=== PATIENT | female | born 1935 | race Caucasian/White ===

== ENCOUNTER 2020-06-01 08:42 | Outpatient (CLI) | payer MEDICARE, OTHER, SELFPAY ==
--- NOTE | ~2020-06-01 | MM_ITS ---
EXAMINATION: MM screening ezekiel BI w chao HISTORY: Screening TECHNIQUE: Craniocaudal and mediolateral oblique 3-D tomosynthesis images were obtained and synthetic 2-D images were generated. CAD analysis was submitted and interpreted. COMPARISON: Comparison to multiple prior studies sequentially, with oldest reviewed study dated 11/14. BREAST PARENCHYMAL COMPOSITION: There are scattered areas of fibroglandular density. FINDINGS: There is no evidence of suspicious mass, calcification, or architectural distortion to sugg est malignancy in either breast. There has been no suspicious interval change. IMPRESSION: 1. No mammographic evidence of malignancy. 2. Recommend routine screening mammography in one year. BI-RADS Category 1: Negative Reviewed, dictated and finalized at location A. H TESTER
== END 2020-06-01 08:43 | disposition home or self-care (01) ==
PROVIDERS: PCP Internal Medicine Infectious Disease; Visit Provider Student in an Organized Health Care Education/Training Program
DX: Z12.31 Encounter for screening mammogram for malignant neoplasm of breast (principal)
CPT/HCPCS: 77063; 77067

== ENCOUNTER 2020-06-12 10:35 | Outpatient (CLI) | payer MEDICARE, OTHER, SELFPAY ==
--- NOTE | ~2020-06-12 | CT_ITS ---
EXAMINATION: CT chest high resolution wo co DATE: 06/12/2020 10:58 INDICATION: abn PFT R94.2 Abnormal results of pulmonary function studies TECHNIQUE: Computed tomography (CT) of the chest was performed without intravenous contrast. Addition al 3D reconstructions utilizing coronal maximum intensity projection (MIP) were performed. Automated exposure control and iterative reconstruction technique were employed. The dose-length product was 16 7.36 mGy-cm. COMPARISON: None FINDINGS: Calcified nodule in the left lower lobe along with calcified left hilar lymph nodes and a calcified s plenic nodule, all consistent with old granulomatous disease. Mild pleural-parenchymal scarring/fibro sis along side several prominent endplate osteophytes at the right anterolateral margin of the mid to lower thoracic spine consistent with diffuse idiopathic skeletal hyperostosis (DISH). No evident int erstitial lung disease, suspicious pulmonary nodules, pneumonia, pulmonary edema or pleural effusion. Heart size is normal. Atherosclerotic coronary artery calcifications and aortic valve calcification. No pericardial effusion. Thoracic aorta is normal in caliber. No pathologically enlarged thoracic ly mphadenopathy. Moderate-sized sliding-type hiatal hernia. Multiple calcified gallstones within the ot herwise normal-appearing gallbladder. Thoracic kyphosis with chronic T7 compression fracture with 40% anterior and central vertebral body height loss. IMPRESSION: 1. No acute cardiopulmonary disease or chronic interstitial lung disease. 2. Moderate-sized sliding-type hiatal hernia. 3. Chronic T7 compression fracture. 4. Cholelithiasis. Reviewed, dictated and finalized at location . RVISOR MAIL CARRIERS
--- NOTE | 2020-06-12 10:56 | ECHO_ITS ---
Patient Info Name: Fadumo Rdz Age: 85 years : 1935 Gender: Female Ht: 65 in Wt: 150 lbs BSA: 1.78 m2 HR: 46 bpm BP: 158 / 75 mmHg Heart Rhythm: Sinus Rhythm Technical Quality: Good Exam Date: 06/12/2020 11:14 AM Exam Location: [facility] Patient Status: Outpatient Admit Date: 06/12/2020 Staff Ordering Physician: Cristiane Mireles MD Car Repairer Pull[place]: Amy Aquino RDCS Attending Provider: Cristiane Mireles MD Referring Physician: Aline DEWEY; Exam Type: CA echo doppler color flow Study Info Indications R06.00 - Dyspnea, unspecified Complete two-dimensional, color flow and Doppler transthoracic echocardiogram is performed. Summary 1. Complete two-dimensional, color flow and Doppler transthoracic echocardiogram is performed. 2. There is mild concentric increased left ventricular wall thickness. 3. Left ventricular systolic function is normal, estimated at 60-65%. 4. Left atrial chamber dimension is mildly enlarged. 5. Trivial aortic mitral and tricuspid valve regurgitation. Left Ventricle Left ventricular chamber dimension is normal. Left ventricular systolic function is normal, estimated at 60-65%. There is mild concentric increased left ventricular wall thickness. The left ventricular diastolic function is grade I diastolic dysfunction. Right Ventricle Right ventricular chamber dimension is normal. Left Atria Left atrial chamber dimension is mildly enlarged. Right Atria Right atrial chamber dimension is normal. Aortic Valve The aortic valve is trileaflet. There is mild aortic valve sclerosis. There is trace aortic valve regurgitation. Pulmonic Valve The pulmonic valve is not well visualized. Mitral Valve The mitral valve has normal leaflets. There is trace mitral valve regurgitation. The mitral valve annulus is mildly calcified. Tricuspid Valve The tricuspid valve leaflets are normal. There is trace tricuspid valve regurgitation. Pericardium/Pleural The pericardium appears normal. Aorta The aortic root size at the sinus of Valsalva is normal. Left Ventricular Outflow Tract Name Value Normal LVOT 2D LVOT Diameter 2.0 cm LVOT Doppler LVOT Peak Gradient 7 mmHg LVOT Mean Gradient 4 mmHg LVOT VTI 37 cm LVOT VTI/AV VTI Ratio 0.8 LVOT Stroke Volume 116 ml LVOT CO 4.3 l/min LVOT CI 2.4 l/min/m2 Pulmonic Valve Name Value Normal RVOT Doppler RVOT Peak Gradient 2 mmHg PV Doppler PV Peak Gradient 3 mmHg Mitral Valve
--- NOTE | 2020-06-18 16:04 | WPDSIXMINUTE ---
Six Minute Walk Six Minute Walk: DOS: 06/12/2020 REQUESTING: Dr Mireles REASON FOR TESTING: Dyspnea SIX MINUTE WALK This This test was conducted per ATS guidelines. The initial saturation was 95%. The pulse was 59. The patient walked for 6 minutes without desaturating. The pulse maximum was 75. During recovery the lowest saturation was 95%. Distance walked was 750 ft/228 meters. She did not stop to rest. She used a cane while walking. IMPRESSION: Normal walk study without desaturation. No supplemental O2 needed with exertion.
== END 2020-06-12 10:36 | disposition home or self-care (01) ==
LOC: ANHIMG 10:36
PROVIDERS: PCP Internal Medicine Infectious Disease; Visit Provider Internal Medicine Critical Care Medicine
DX: R94.2 Abnormal results of pulmonary function studies (principal); K80.20 Calculus of gallbladder without cholecystitis without obstruction; K44.9 Diaphragmatic hernia without obstruction or gangrene
CPT/HCPCS: 71250; 93306

== ENCOUNTER 2020-06-22 12:45 | Outpatient (CLI) | payer MEDICARE, OTHER, SELFPAY ==
--- NOTE | ~2020-06-22 | NM_ITS ---
EXAMINATION: NM pulmonary perfusion DATE: 06/22/2020 13:40 INDICATION: Shortness of breath. TECHNIQUE: 5.38 mCi Tc-99m MAA was administered intravenously for perfusion images. Scintigraphic im ages of the chest were obtained. COMPARISON: Chest 2 views 06/22/2020, chest CT 06/12/2020 FINDINGS: Perfusion images show small defects in left upper lobe and left lower lobe. ] IMPRESSION: 1. Pulmonary embolism absent (very low probability). Reviewed, dictated and finalized at location A. T ARMORED RECONNAISSANCE OFFICER
--- NOTE | ~2020-06-22 | XR_ITS ---
EXAMINATION: XR chest 2V EXAM DATE: 06/22/2020 13:06 INDICATION: R06.02 - Shortness of breath TECHNIQUE: Frontal and lateral projections of the chest obtained and reviewed. There is no prior alaina dy for comparison. Correlation was made with CT chest 06/12/2020. FINDINGS: There is moderate to large sliding gastroesophageal hiatal hernia. The lungs are clear. Th ere are no pleural effusions. The cardiomediastinal silhouette is within normal limits. There is no pneumothorax suspected. The bones and soft tissues are unremarkable. 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 IMPRESSION: No acute cardiopulmonary findings. Moderate to large sized hiatal hernia. Reviewed, dictated and finalized at location B. UREMENT SPECIALIST IMPRESSION: No acute cardiopulmonary findings. Moderate to large sized hiatal h ernia.
== END 2020-06-22 12:46 | disposition home or self-care (01) ==
PROVIDERS: PCP Internal Medicine Infectious Disease; Visit Provider Internal Medicine Critical Care Medicine
DX: R94.2 Abnormal results of pulmonary function studies (principal); R06.02 Shortness of breath; K44.9 Diaphragmatic hernia without obstruction or gangrene
CPT/HCPCS: 71046; 78580; A9540

== ENCOUNTER 2020-07-20 08:20 | Outpatient (CLI) | payer MEDICARE, OTHER, SELFPAY ==
[2020-07-22 08:14] LABS: ANA Cascade Screen Negative (Negative)
== END 2020-07-20 08:21 | disposition home or self-care (01) ==
PROVIDERS: PCP Internal Medicine Infectious Disease; Visit Provider Internal Medicine Critical Care Medicine
DX: R94.2 Abnormal results of pulmonary function studies (principal); R06.00 Dyspnea, unspecified
CPT/HCPCS: 36415; 86038

== ENCOUNTER 2021-08-02 09:41 | Outpatient (CLI) | payer MEDICARE, OTHER, SELFPAY ==
--- NOTE | ~2021-08-02 | MM_ITS ---
EXAMINATION: MM screening ezekiel BI w chao HISTORY: Screening mammogram, family history of breast cancer in her daughter and sister. TECHNIQUE: Craniocaudal and mediolateral oblique 3-D tomosynthesis images were obtained and synthetic 2-D images were generated. CAD analysis was submitted and interpreted. COMPARISON: 06/01/2020, 04/05/2019, 03/27/2019, 03/15/2018 BREAST PARENCHYMAL COMPOSITION: There are scattered areas of fibroglandular density. FINDINGS: There is no evidence of suspicious mass, calcification, or architectural distortion to sugg est malignancy in either breast. There has been no suspicious interval change. IMPRESSION: 1. No mammographic evidence of malignancy. 2. Recommend routine screening mammography in one year. BI-RADS Category 1: Negative Reviewed, dictated and finalized at location A. BIT CARPENTER
== END 2021-08-02 09:42 | disposition home or self-care (01) ==
LOC: ANHIMG 09:44
PROVIDERS: PCP Internal Medicine Infectious Disease; Visit Provider Student in an Organized Health Care Education/Training Program
DX: Z12.31 Encounter for screening mammogram for malignant neoplasm of breast (principal)
CPT/HCPCS: 77063; 77067

== ENCOUNTER 2023-04-04 08:15 | Outpatient (CLI) | payer MEDICARE, OTHER, SELFPAY ==
--- NOTE | ~2023-04-04 | MM_ITS ---
EXAMINATION: MM screening ezekiel BI w chao HISTORY: Screening mammogram TECHNIQUE: Craniocaudal and mediolateral oblique 3-D tomosynthesis images were obtained and synthetic 2-D images were generated. CAD analysis was submitted and interpreted. COMPARISON: 08/02/2021, 06/01/2020 bilateral screening mammogram examinations BREAST PARENCHYMAL COMPOSITION: There are scattered areas of fibroglandular density. FINDINGS: There is no evidence of suspicious mass, calcification, or architectural distortion to sugg est malignancy in either breast. There has been no suspicious interval change. IMPRESSION: 1. No mammographic evidence of malignancy. 2. Recommend routine screening mammography in one year. BI-RADS Category 1: Negative Reviewed, dictated and finalized at location A.
== END 2023-04-04 08:16 | disposition home or self-care (01) ==
PROVIDERS: PCP Internal Medicine Infectious Disease; Visit Provider Internal Medicine Infectious Disease
DX: Z12.31 Encounter for screening mammogram for malignant neoplasm of breast (principal)
CPT/HCPCS: 77063; 77067

== ENCOUNTER 2024-01-15 11:25 | Outpatient (CLI) | payer MEDICARE, OTHER, SELFPAY ==
[2024-01-15 12:32] LABS: Alanine Aminotransferase 12 U/L (6-35); Albumin Level 3.7 g/dL (3.5-5.1); Alkaline Phosphatase 125 U/L (38-126); Anion Gap 7 mmol/L (4-12); Aspartate Amino Transferase 22 U/L (14-36); Bilirubin,Total 0.4 mg/dL (0.2-1.3); Blood Urea Nitrogen 43 mg/dL (7-17); Carbon Dioxide 22 mmol/L (22-30); Chloride 111 mmol/L (98-107); Estimated Glomerular Filt Rate 42; Glucose 87 mg/dL (65-110); Magnesium 2.1 mg/dL (1.6-2.3); Phosphorus 3.2 mg/dL (2.5-4.5); Potassium 4.5 mmol/L (3.4-5.0); Sodium 140 mmol/L (137-145)
[2024-01-15 12:43] LABS: Parathyroid Intact 68.5 pg/mL (7.5-53.5)
[2024-01-17 02:29] LABS: Protein, Total 6.1 g/dL (6.1-8.1)
[2024-01-17 11:23] LABS: Ionized Calcium 5.5 mg/dL (4.7-5.5)
[2024-01-17 13:18] LABS: Creatinine, Random Urine 78 mg/dL (20-275); Total Protein/Creatinine Ratio 141 mg/g creat (24-184)
[2024-01-17 15:09] LABS: Albumin 3.6 g/dL (3.8-4.8); Alpha 1 Globulin 0.3 g/dL (0.2-0.3); Alpha 2 Globulin 0.8 g/dL (0.5-0.9); Beta 1 Globulin 0.4 g/dL (0.4-0.6); Gamma Globulin 0.8 g/dL (0.8-1.7)
[2024-01-19 15:33] LABS: Vitamin D 1,25 (OH)2 Total 25 pg/mL (18-72); Vitamin D2 1,25 (OH)2 <8 pg/mL; Vitamin D3 1,25 (OH)2 25 pg/mL
[2024-01-30 13:33] LABS: Parathyroid Hormone Related Pr 14 pg/mL (11-20)
== END 2024-01-15 11:26 | disposition home or self-care (01) ==
LOC: ANHLAB 11:34
PROVIDERS: Visit Provider Internal Medicine
DX: E83.52 Hypercalcemia (principal); R06.00 Dyspnea, unspecified; M81.0 Age-related osteoporosis without current pathological fracture
CPT/HCPCS: 36415; 80053; 82306; 82330; 82570; 82652; 83519; 83735; 83970; 84100; 84155; 84156; 84165; 84166; 84439; 84443

== ENCOUNTER 2024-01-18 12:06 | Outpatient (CLI) | payer MEDICARE, OTHER, SELFPAY ==
[2024-01-18 13:44] LABS: Creatinine Urine 59.8 mg/dL
[2024-01-18 14:14] LABS: Creatinine 24 Hour Urine 0.7 gm/24 (0.8-1.8); Total Volume 24 Hour Urine 1200 ml
== END 2024-01-18 12:07 | disposition home or self-care (01) ==
LOC: ANHLAB 12:11
PROVIDERS: Visit Provider Internal Medicine
DX: E21.3 Hyperparathyroidism, unspecified (principal); M81.0 Age-related osteoporosis without current pathological fracture
CPT/HCPCS: 81050; 82340; 82570

== ENCOUNTER 2024-02-23 12:25 | Outpatient (CLI) | payer MEDICARE, OTHER, SELFPAY ==
[2024-02-23 12:44] LABS: Basophils Absolute Auto 0.1 K/mm3 (0.0-0.1); Basophils Percent Auto 1.3 % (0.2-1.2); Eosinophils Absolute Auto 0.3 K/mm3 (0-0.3); Eosinophils Percent Auto 3.9 % (0-4.4); Hematocrit 37.5 % (37.0-47.0); Hemoglobin 11.6 g/dL (12.0-15.0); Immature Granulocyte Absolute 0.02 K/mm3 (0.00-0.031); Immature Granulocyte Percent A 0.3 % (0-0.5); Lymphocytes Absolute Auto 1.59 K/mm3 (0.9-3.2); Lymphocytes Percent Auto 23.2 % (18.3-44.2); Mean Corpuscular HGB Conc 30.9 g/dl (32-36); Mean Corpuscular Hemoglobin 29.2 pg (26-34); Mean Corpuscular Volume 94.5 fl (80-100); Mean Platelet Volume 9.9 fl (7.4-10.4); Monocytes Absolute Auto 0.6 K/mm3 (0.1-0.6); Monocytes Percent Auto 8.8 % (2.6-8.5); Neutrophils Absolute Auto 4.3 K/mm3 (1.3-6.7); Neutrophils Percent Auto 62.5 % (45.5-73.1); Platelet Count Result 213 k/mm3 (150-375); Red Blood Count 3.97 M/mm3 (4.2-5.4); Red Cell Distribution Width 13.8 % (11.5-14.5); White Blood Count 6.9 K/mm3 (4.5-10.0)
[2024-02-23 15:30] LABS: Iron 60 ug/dL (37-170)
[2024-02-23 15:37] LABS: Alanine Aminotransferase 15 U/L (6-35); Albumin Level 4.2 g/dL (3.5-5.1); Alkaline Phosphatase 86 U/L (38-126); Anion Gap 10 mmol/L (4-12); Aspartate Amino Transferase 23 U/L (14-36); Bilirubin,Total 0.5 mg/dL (0.2-1.3); Blood Urea Nitrogen 30 mg/dL (7-17); Carbon Dioxide 21 mmol/L (22-30); Chloride 108 mmol/L (98-107); Estimated Glomerular Filt Rate 52; Glucose 106 mg/dL (65-110); Potassium 4.7 mmol/L (3.4-5.0); Sodium 139 mmol/L (137-145)
[2024-02-23 15:42] LABS: Percent Iron Saturation 20 % (20-50)
[2024-02-23 15:47] LABS: Immunoglobulin A 150 mg/dL (70-400); Immunoglobulin G 995 mg/dL (700-1600); Immunoglobulin M 35 mg/dL (40-230)
[2024-02-23 16:45] LABS: Folic Acid 9.6 ng/mL (2.76->20)
[2024-02-26 11:28] LABS: Protein, Total 6.3 g/dL (6.1-8.1)
[2024-02-26 12:13] LABS: Lambda Light Chain 21.2 mg/L (5.7-26.3)
[2024-02-27 11:13] LABS: Albumin 3.8 g/dL (3.8-4.8); Alpha 1 Globulin 0.3 g/dL (0.2-0.3); Alpha 2 Globulin 0.8 g/dL (0.5-0.9); Beta 1 Globulin 0.4 g/dL (0.4-0.6); Gamma Globulin 0.9 g/dL (0.8-1.7)
== END 2024-02-23 12:26 | disposition home or self-care (01) ==
LOC: ANHLAB 12:28
PROVIDERS: Nurse Practitioner Family; Visit Provider Internal Medicine Hematology & Oncology
DX: D64.9 Anemia, unspecified (principal); D72.9 Disorder of white blood cells, unspecified
CPT/HCPCS: 36415; 80053; 82607; 82728; 82746; 82784; 83540; 83550; 83883; 84155; 84165; 85025

== ENCOUNTER 2024-03-04 09:28 | Outpatient (CLI) | payer MEDICARE, OTHER, SELFPAY ==
--- NOTE | ~2024-03-04 | NM_ITS ---
EXAMINATION: NM bone scan whole body DATE: 03/04/2024 14:46 INDICATION: Plasma cell disorder. TECHNIQUE: 22.3 mCi Tc-99m HDP was administered intravenously. Delayed whole-body scintigrams were o btained. 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 There is increased activity adjacent to the left k nee arthroplasty, which is nonspecific and may be normal. There is joint-centered increased activity in the shoulders, sternoclavicular joints, wrists, right knee, and feet, likely osteoarthritis. There is a right hip arthroplasty. There is focal increased activity in an anterior right rib, likely an a ge-indeterminate fracture. There is disc-centimeters increased activity in the spine, likely degenera tive disc disease. IMPRESSION: 1. No specific evidence of multiple myeloma. 2. Focal increased activity in an anterior right rib, likely an age-indeterminate fracture. Reviewed, dictated and finalized at location A. IMPRESSION: 1. No specific evidence of multiple myeloma. 2. Focal increased activity in an anterior right rib, likely an age-indetermina te fracture.
== END 2024-03-04 09:29 | disposition home or self-care (01) ==
LOC: ANHIMG 09:28
PROVIDERS: Visit Provider Nurse Practitioner Family
DX: D72.9 Disorder of white blood cells, unspecified (principal)
CPT/HCPCS: 78306; A9503

== ENCOUNTER 2024-11-26 09:32 | Outpatient (CLI) | payer MEDICARE, OTHER, SELFPAY ==
--- NOTE | ~2024-11-26 | US_ITS ---
EXAMINATION: US aorta DATE: 11/26/2024 11:08 CDT INDICATION: Aortic aneurysm. TECHNIQUE: Grayscale, color Doppler, and pulsed Doppler images of the aorta and common iliac arteries were obtained. COMPARISON: None. FINDINGS: The proximal aorta measures 3 cm greatest sagittal dimension. The mid aorta measures 3.3 cm greatest sagittal dimension. The distal aorta measures 2.2 cm greatest sagittal dimension. The right common in ternal iliac artery measures 1.5 cm. The left common iliac artery measures 1.5 cm. IMPRESSION: 1. Atherosclerosis with aneurysmal dilation of the abdominal aorta measuring up to 3.3 cm greatest sa gittal dimension. Consider correlation with CT angiography of the abdomen. Reviewed, dictated and finalized at location A. IMPRESSION: 1. Atherosclerosis with aneurysmal dilation of the abdominal aorta measuring up to 3.3 cm greatest sagittal dimension. Consider correlation with CT angiograph y of the abdomen.
--- OUTSIDE RECORDS SUMMARY | 2024-11-26 10:27 | XMS_ITS ---
Author Name Auto Generated, Auto Generated Organization [facility] ices Address [address] [place] [address] Phone [phone] Care Team Providers Care Oceanologist Name Role Phone Jairo Corona Unavailable Tian Villeda Unavailable [phone] Functional Status Mental Status Allergies and Intolerances Medications Problems Reason for Referral Past Medical History
--- OUTSIDE RECORDS SUMMARY | 2024-11-26 10:27 | XMS_ITS | Encounter Summary ---
Author Organization [facility] Address [address] [place] [address] Care Team Providers Care Arc Cutter Name Role Phone Denzel Beckford MD Unavailable [phone] Jorge A Colindres MD Primary Care Provider [phone] Encounter Details Date Type Department Care Team (Late st Contact Info) Description 12/26/2019 Lab Requisition [facility] [address] [place] [id number] [place] [address] [place] [address] Social History Tobacco Use Types Packs/Day Years Used Date Smoking Tobacco: Never Smokeless Tobacco: Never Alcohol Use Standard Drinks/Week Comments No 0 (1 standard drink = 0.6 oz pur e alcohol) Comments Unknown Sex and Gender Information Value Date Recorded Sex Assigned at Not on file 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 Gender Identity Not on file Sexual Orientation Not on file documented as of this encounter Plan of Treatment Not on file documented as of this encounter Procedures Procedure Name Priority Date/Time Associated Diagnosis Comments DERMATOPATHOLOGY Routine 12/25/2019 12:0 0 AM CDT documented in this encounter Results * DERMATOPATHOLOGY (12/25/2019 12:00 AM CDT) Case Report Dermatopathology Report Case: [id number] Authorizing Provider: Zora Da Silva MD Collected: 12/25/2019 12:00 AM Ordering Location: [facility] Received: 12/26/2019 09:41 AM Pathologist: Hortensia Delarosa MD Specimen: Skin, right distal lateral posterior upper arm 0 4:36 PM CDT DERMATOPATHOLOGY LABORATORY Final Diagnosis Specimen A. 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 . 0 4:36 PM CDT DERMATOPATHOLOGY LABORATORY Gross Description Specimen A: Received is one formalin filled container labeled with the patient's name and designated right distal lateral posterior upper arm. The specimen consists of a shave biopsy measuring [id number]. Jar 0+. 0 4:36 PM CDT DERMATOPATHOLOGY LABORATORY Microscopic Description Specimen A. SKIN, right distal lateral posterior upper arm: Sections show acanthosis, papillomatosis, hyperkeratosis, and squamous eddies. There is a lymphohistiocytic infiltrate within the papillary dermis. 0 4:36 PM CDT DERMATOPATHOLOGY LABORATORY Disclaimer An external and internal positive and negative controls are appropriate for the histochemical, immunohistochemical and immunofluorescence stain(s) in this case (if any), except where stated explicitly. The performance characteristics of the stain(s) cited in this report were developed and its performance characteristic determined by the Dermatopathology Laboratory at [facility], directed by Dr. Arturo Delarosa. These tests need not be, and therefore are not, approved by the [place] Food and Drug Administration. The tests are used for clinical purposes. Billing Codes Specimen Charges Stain Charges 18152 1 0 4:36 PM CDT DERMATOPATHOLOGY LABORATORY Embedded Images 0 4:36 PM CDT DERMATOPATHOLOGY LABORATORY Pathology/Cytolog y TISSUE SPECIMEN FROM SKIN / Unknown 12/25/2019 12/26/2019 9:41 AM CDT us Zora Da Silva MD LAB - PATHOLOGY/CYTOLOGY ORDERABLES Final Result DERMATOPATHOLOGY LABORATORY [facility] - Department of Dermatology Supervising Libr[facility]/[address] [phone] documented in this encounter Visit Diagnoses Not on filedocumented in this encounter Care Teams Arc Cutter Relationship Specialty Start Date End Date Jorge A Colindres MD [address] [place] [id number] PCP - General Internal Medicine 03/08/24 [place] [address] [address] Orthopedic Surgery 02/24/12 documented as of this encounter
--- OUTSIDE RECORDS SUMMARY | 2024-11-26 10:27 | XMS_ITS | Clinical Summary ---
Author Organization [facility] Virtual Care Address [address] [place] [id number] Phone Care Team Providers Care Racing Driver Name Role Phone Jorge A Colindres MD Primary Care Provider [phone] Bambi Santos MD Unavailable Walt Castellanos MD Unavailable [phone] Cristiane Mireles MD Unavailable [phone] Delilah Zavala MD Unavailable [phone] Dariela Edward DO Unavailable [phone] Allergies Active Allergy Reactions Criticality Noted Date Comments Codeine Unknown Erythromycin Rash Medium 06/21/2011 Propoxyphene Unknown Quinapril Unknown Sulfa (Sulfonamide Antibiotics) Rash Medium Medications aspirin 81 mg tabletIndication s:Myocardial Reinfarction Prevention Take 1 tablet (81 mg total) by mouth every morning Active cholecalciferol, vitamin D3, (VITAMIN D3 ORAL) Take 1,000 Int'l Units by mouth every morning Active cyanocobalamin (vitamin B-12) 1,000 mcg tabletIndication s:on Mon, Take 1 tablet (1,000 mcg total) by mouth 2 (two) times a week 04/17/20 025 Active Additional Information Patient not taking.Reported on 11/11/2024 acetaminophen (TYLENOL) 325 mg tabletIndication s:Pain Take 2 tablets (650 mg total) by mouth every 6 (six) hours as needed for pain Active amLODIPine (NORVASC) 5 mg tablet Take 1 tablet (5 mg total) by mouth daily 30 tablet 11 12/01/19 24 025 Active ALPRAZolam (XANAX) 0.25 mg tablet Take 1 tablet (0.25 mg total) by mouth nightly as needed for anxiety 30 tablet 04/04/20 24 Active ergocalciferol (VITAMIN D) 50,000 unit capsule Take 1 capsule (50,000 Units total) by mouth once a week 04/27/20 24 Active losartan (COZAAR) 100 mg tablet HALF PILL A DAY 04/26/20 24 Active hydrALAZINE (APRESOLINE) 25 mg tabletIndication s:Hypertension, essential Take 1 po bid 180 tablet 1 06/26/20 24 Active sertraline (ZOLOFT) 50 mg tablet TAKE 2 TABLETS(100 MG) BY MOUTH DAILY 180 tablet 1 07/26/20 24 Active mirtazapine (REMERON) 15 mg tabletIndication s:Other depression TAKE 1 TABLET(15 MG) BY MOUTH EVERY NIGHT 30 tablet 4 07/29/20 24 Active denosumab (PROLIA) 60 mg/mL syringeIndicatio ns:postmenopausa l osteoporosis and high fracture risk Inject 1 mL (60 mg total) under the skin once for 1 dose 1 mL 1 08/09/19 25 Active hydrALAZINE (APRESOLINE) 10 mg tabletIndication s:hypertension Take 1 tablet by mouth 3 (three) times a day patient taking 25mg 3x daily Discontin ued(Dose adjustmen t) Active Problems Problem Noted Date Diagnosed Date Nonrheumatic aortic valve stenosis 11/11/2024 Cellulitis 05/08/2024 Assessment & Plan (05/08/2024 9:05 AM CDT): Doubt dvt Cellultis is suspected with thromobphlebitis Keflex 500 mg po tid for five days Arm elevated Moist warm compresses 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 Assessment & Plan (04/29/2024 6:00 PM CDT): 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 S/p para thyroidectomy with caclium supplemenation resulting in hypercaclemia supplements stopped rpt calcium today is 10.4 Cellulitis 04/29/2024 Assessment & Plan (04/29/2024 6:01 PM CDT): Probably with a combination of thrombophlebitis however she does not remember getting an IV in meanwhile keflex 500 mg po tid for five days Swelling of upper arm 04/29/2024 Assessment & Plan (04/29/2024 6:02 PM CDT): Ddx include cellultis/ dvt/ thrombophlebitis Keflex 500 mg p otid for five days Asrrange a rue venous doppler JONNA (generalized anxiety disorder) 04/12/2024 Assessment & Plan (08/07/2024 12:56 PM DIRECTOR OF SCIENCE): CHRONIC AND STABLE REMERON HS FOR APPETITE XANAX PRN ZOLOFT 50 MG TWO PILLS A DAY Assessment & Plan (04/12/2024 4:50 PM CDT): CHRONIC AND STAB LE ON ZOLOFT Primary hyperparathyroidism 04/12/2024 Assessment & Plan (04/26/2024 12:18 PM CDT): S/P PARATHYORIDECTOMY WITH 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 DUE FOR PARATTHYRODIECTOMY Encounter for Medicare annual wellness exam 10/2023 Assessment & Plan (12/02/2023 4:43 PM CDT): IMMUNIZATIONS WERE REVIEWED DISCUSSED SHINGRIX VACCINE ELEVATED BP GOAL IS UNDER 130/80 OR LESS WITH A H/O AAA ( 3.5 CM ) AND MILD AORTIC STENOSIS F/U DR [facility] HYPERCALCEMIA WITH AN ELEVATED INTACT PTH, NL CREATININE POSITIVE OSTEOPOROSIS NOT ON PROLIA AT THIS TIME, LAST CREATININE IS AROUND 11 , MAKE F/U ENDOCRINOLOGY APPT COMING UP PT IS ASYMPTOMATIC DEPRESSION WITH WEIGHT LOSS CONTROLLED ON ZOLOFT 100 ( 50 MG TWO PILLS A DAY ) RESTART REMERON 15 MG PO QHS AND PRN XANAX DAVID USED VERY SPARINGLY CHRONIC PAIN MULTIPLE JOINTS OK TO DO TRAMADOL 50 MG PO TID WITH TYLNOL FOR ADDED BENEFIT A PRESCRIPTION TO THE PHARMACY WAS SENT TODAY AAA 3.5 CM STABLE DOING OK Abdominal aortic aneurysm (A AA) 3.0 cm to 5.0 cm in diameter in female 06/17/2023 Hyponatremia 06/16/2023 Unintentional weight loss 06/16/2023 Moderate protein-calorie malnutrition 06/16/2023 Hypercalcemia 06/15/2023 Multiple closed fractures of pelvis without disruption of pelvic ring, initial encounter 04/14/2023 Closed nondisplaced fracture of pelvis 3 Impaired mobility and endurance 06/15/2022 Assessment & Plan (06/15/2022 9:44 AM DIRECTOR OF SCIENCE): Chronic problem Please refer to note for pertinent HPI, ROS and PE findings Patient requesting a scooter (preferrable with 4-wheels) to help with mobility, especially when having to travel long distances Will have staff attempt to order scooter for patient Orders for AMS STAFF to arrange Referral to home health social work - referral for help in home with Referral to PT - evaluation of needs for scooter, balance and strengthening exercises for endurance - patient prefers PT services downstairs Try ordering motorized scooter - impaired mobility and endurance, patient prefers 4-wheel scooter Orders for Fadumo Hammond to arrange FOR SCOOTER: Follow up with PT as recommended Office staff to coordinate ordering motorized scooter - office will keep you updated, call if have any questions Follow up with cardiology as recommended Follow up with PT as recommended and able Follow up with Dr. Colindres as scheduled or sooner if necessary COVID-19 03/22/2022 Assessment & Plan (03/22/2022 3:01 PM CDT): Patient presents with fever, fatigue, chills and cough that started over the weekend. She took some tylenol which helped with symptoms. She was tested for flu and covid today and covid testing was positive. Encouraged rest, fluids, tylenol for pain or fever and mucinex for congestion. She was encouraged to use albuterol inhaler for cough or shortness of breath. She will be sent tessalon perles for cough. We also sent paxlovid and facts sheet provided. Encouraged her to call or return should symptoms worsen or persist. Discussed quarantine guidelines and understanding verbalized. Age-related osteoporosis wit hout current pathological fracture 05/26/2021 Assessment & Plan (04/26/2024 12:18 PM CDT): CONTINUE VIT SUPPLEMETNATION AND SIX MONTHLY PROLIA Closed fracture of greater t rochanter of femur with routine healing, right 04/27/2021 Stage 3a chronic kidney disease 02/14/2021 Ptosis of eyelid, right 08/09/2019 Overview (08/09/2019): Added automatically from request for surgery [id number] Peripheral visual field defect of right eye 07/31 Overview (08/09/2019): Added automatically from request for surgery [id number] MARIA (dyspnea on exertion) 05/08/2019 Assessment & Plan (05/26/2023 4:25 PM CDT): Worse in the last 1-2 weeks, no acute cardiac symptoms or findings on exam.- vitals stable. Lungs clear. Labs from last month and ECHO from 03/2022 were unremarkable, Community Education Coordinator at baseline. Advised this is likely from anxiety and poor appetite. See plan for anxiety/depression above. Non-rheumatic mitral regurgitation 05/08/2019 Caregiver role strain 02/12/2019 Assessment & Plan (06/15/2022 9:57 AM DIRECTOR OF SCIENCE): Chronic problem Patient's has dementia - patient is primary caregiver and is requesting help in the home with performing ADLs for due to patient's impaired mobility, poor endurance/strength, and baseline arthritis and subsequent pain See note for pertinent HPI, ROS and PE findings Recommended referral to home health social work to bring in services into the home - patient agreeable to this Orders for AMS STAFF to arrange Referral to home health social work - referral for help in home with Referral to PT - evaluation of needs for scooter, balance and strengthening exercises for endurance - patient prefers PT services downstairs Try ordering motorized scooter - impaired mobility and endurance, patient prefers 4-wheel scooter Orders for Fadumo Hammond to arrange FOR HELP IN HOME: Call office at the end of the week or the beginning of next week if haven't heard from home health director of social services - will have office staff reach out again Follow up with cardiology as recommended Follow up with PT as recommended and able Follow up with Dr. Colindres as scheduled or sooner if necessary Depression 09/25/2018 Assessment & Plan (05/26/2023 4:19 PM CDT): Worse in the last several weeks. See HPI for details. Taking sertraline daily and xanax PRN. No acute findings on exam. Will Rx Mirtazipine 7.5mg nightly. Relaxation techniques encouraged. Advised patient it is OK to ask for help when needed, she should not feel guilt about needing help. Follow in 3 weeks as scheduled. Bilateral low back pain without sciatica 017 Mixed hyperlipidemia 11/17/2016 Overview (12/23/2016): Hypercholesterolemia Assessment & Plan (08/07/2024 12:55 PM DIRECTOR OF SCIENCE): FLP AND LDL WERE REVIEWED GOAL LDL IS UNDER 100 Assessment & Plan (04/12/2024 4:50 PM CDT): FLP AND LDL WERE REVIEWED GOAL LDL IS UNDER 100 Aortic valve insufficiency 05/04/2015 Overview (11/03/2016): Aortic valve insufficiency, etiology of cardiac valve disease unspecified Assessment & Plan (04/12/2024 4:51 PM CDT): CHRONIC AND STABLE LAST ECHO IN 2021 PT IS ASYMTPOMATIC RPT ECHO SOMETIEMS THIS YEAR Primary osteoarthritis involving multiple joints 12/14/2013 Overview (11/05/2016): DJD (degenerative joint disease) 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 No acute findings on exam. Continue current regimen and low salt diet. Diverticulosis Blood loss anemia Resolved Problems Problem Noted Date Diagnosed Date Resolved Date Bradycardia 06/15/2022 05/26/2023 Assessment & Plan (06/15/2022 9:49 AM DIRECTOR OF SCIENCE): Acute problem, patient reports only one occurrence 2 days ago of heart rate in the 40s Physical examination as documented Patient recently seen by cardiology in 04/2022 and cleared from cardiac standpoint - see chart for echo, EKG results (unremarkable) Discussed potential further cardiac workup - patient declines at this time, stating that she would rather monitor heart rate and symptoms and report any abnormalities to the office if another incident occurs Orders for AMS STAFF to arrange Referral to home health social work - referral for help in home with Referral to PT - evaluation of needs for scooter, balance and strengthening exercises for endurance - patient prefers PT services downstairs Try ordering motorized scooter - impaired mobility and endurance, patient prefers 4-wheel scooter Orders for Fadumo Hammond to arrange FOR HEART RATE: Continue monitoring heart rate - report readings <50 or >100 Continue monitoring blood pressure - report readings <90/60 or >140/90 Continue monitoring symptoms - report symptoms of chest pain, shortness of breath, dizziness, weakness/fatigue to the office or screen making supervisor Follow up with cardiology as recommended Follow up with PT as recommended and able Follow up with Dr. Colindres as scheduled or sooner if necessary Rectal bleeding 02/14/2021 05/26/2023 Encounters Date Type Department Care Team Description 11/11/2024 11:00 AM CDT Office Visit [facility] Card[facility] [address] [place] [address] Bisi Douglass MD Abdominal aortic aneurysm (AAA) 3.0 cm to 5.0 cm in diameter in female (Primary Dx); Hypertension, essential; Mixed hyperlipidemia; Nonrheumatic aortic valve stenosis from Last 3 Months Immunizations Immunization Administration Dates Next Due Influenza, Quad, Adjuvantate d, Intramuscular 05/18/2022 Influenza, Quadrivalent, Hig h Dose, Preservative Free, Intrr 05/11/2023,05/18/2021,05/25/2020,05/29 Influenza, Trivalent, Adjuva nted, Intramuscular 05/10/2019 Influenza, Trivalent, High D ose, Split, Preservative Free, Intramuscular 04/12/2024,05/17/2018,05/29/2017 Influenza, Trivalent, IM (MDV) 05/28/2015 Influenza, Unspecified 04/12/2024,05/25/2020, Pneumococcal Conjugate PCV 13 01/15/2016 Pneumococcal Polysaccharide PPV23 04/21/2004 Td, adsorbed 05/19/2008 Surgical History Surgery Date Site/Laterality Comments HIP ARTHROPLASTY 07/31/2013 - 07/30/2014 Right Hip arthroplasty CATARACT EXTRACTION 07/31/2007 - 07/30/2008 Bilateral TOTAL ABDOMINAL HYSTERECTOMY 07/31/1991 - 07/30/1992 PAPILLARY MESOTHELIOMA: Hysterectomy, total abdominal, BSO LAMINECTOMY 07/31/2010 - 07/30/2011 SPINAL STENOSIS: L4-5 LAMINECTOMY KNEE ARTHROSCOPY Right SHOULDER SURGERY Left r/t fracture TOE SURGERY 07/31/2007 - 07/30/2008 Left KNEE SURGERY JOINT REPLACEMENT Medical History Medical History Date Comments Osteoarthritis Osteoarthritis Hypertension Hypertension Depression Depression Spinal stenosis SPINAL STENOSIS Hx Other Medical PAPILLARY MESOT HELIOMA Hx Other Medical Bilateral Catar acts Hx Other Medical Right THR Sleep apnea Delayed emergence from general anesthesia Hyperlipidemia Stage 3a chronic kidney disease (HCC) 02/14/2021 Hiatal hernia Osteoporosis Bleeding disorder Family History Medical History Relation Name Comments Coronary artery disease Brother 3 Martina nary artery disease, premature; Cause of : Coronary artery disease, premature Heart attack Brother 4 Myocardial Infa rction; Cause of : Myocardial Infarction Coronary artery disease Father Martina nary artery disease; Cause of : Coronary artery disease Coronary artery disease Mother Martina klein artery disease, premature; Cause of : Coronary artery disease, premature Heart attack Mother Myocardial Infa rction; Cause of : Myocardial Infarction Bleeding Disorder Other 1 Cancer Other 1 Family history of Cancer; Heart disease Other 1 Hypertension Other 1 Coronary artery disease Other 2 Fami ly history of Coronary artery disease; Diabetes Other 3 Family history of Diabetes mellitus; Hyperlipidemia Other 4 Family histor y of Hyperlipidemia; Breast cancer Sister 1 Cancer -breast ; Diabetes type II Sister 2 Diabetes -T ype 2; Kidney disease Sister 3 Renal disease ; Relation Name Status Comments Brother 1 (Age 52) Brother 2 (Age 52) Brother 3 Brother 4 Father (Age 82) Mother (Age 59) Other 1 Other 2 Other 3 Other 4 Sister 1 Sister 2 Sister 3 Social History Tobacco Use Types Packs/Day Years Used Date Smoking Tobacco: Never Smokeless Tobacco: Never Tobacco Cessation:Counseling Given: Not Answered Alcohol Use Standard Drinks/Week Comments No 0 (1 standard drink = 0.6 oz pur e alcohol) OASIS D0700: Social Isolation Answer Da te Recorded Frequency of experiencing loneliness or isolatio n Never 07/10/2023 OASIS A1250: Transportation Answer Date Recorded Lack of Transportation (Medical) No 07/10/2023 Lack of Transportation (Non-Medical) No 07/10/2023 Patient Unable or Declines to Respond No 07/10/2023 OASIS B1300: Health Literacy Answer Stu e Recorded Frequency of needing help to read materials from doctor or pharmacy Never 07/10/2023 [facility] Utilities Answer Date Recorded In the past 12 months has [employer], [employer], or water [employer] threatened to shut off services in your home? No 06/16/2023 Social Connection and Isolat ion Panel [NHANES] Answer Date Recorded In a typical week, how many times do you talk on the phone with family, friends, or neighbors? More than three times a week 06/16/2023 How often do you get togethe r with friends or relatives? Once a week 06/16/2023 How often do you attend chur or mormonism services? Never 06/16/2023 Do you belong to any clubs o r organizations such as holiness groups, unions, fraternal or athletic groups, or school groups? Yes 06/16/2023 How often do you attend meet ings of the clubs or organizations you belong to? More than 4 times per year 06/16/2023 Are you , , di vorced, , never , or living with a partner? 06/16/2023 Overall Financial Resource Strain (CARDIA) Answe r Date Recorded How hard is it for you to pa y for the very basics like food, housing, medical care, and heating? Not very hard 06/16/2023 PHQ-2 Answer Date Recorded PHQ-2 Total Score (If total score is 3 or more points, staff should administer the PHQ-9) 0 12/01/2023 Hunger Vital Sign Answer Date Recorded Within the past 12 months, y ou worried that your food would run out before you got the money to buy more. Never true 06/16/20 23 Within the past 12 months, t he food you bought just didn't last and you didn't have money to get more. Never true 06/16/2023 PRAPARE - Transportation Answer Date Re corded In the past 12 months, has l ack of transportation kept you from medical appointments or from getting medications? Yes 05/31 In the past 12 months, has l ack of transportation kept you from meetings, work, or from getting things needed for daily living? Yes 06/16/2023 Housing Stability Vital Sign Answer Stu e Recorded In the last 12 months, was t here a time when you were not able to pay the mortgage or rent on time? No 06/16/2023 In the last 12 months, how many places have you lived? 1 06/16/2023 In the last 12 months, was t here a time when you did not have a steady place to sleep or slept in a long term (including now)? No 06/16/2023 Personal Safety Answer Date Recorded Have you ever been in or are you currently in a harmful physical or emotional relationship or is someone making you feel afraid or unsafe? Denies 06/15/2023 Education Answer Date Recorded What is the highest level of school you have completed or the highest degree you have received? Some college, no degree 06/16/2023 Comments No Sex and Gender Information Value Date Recorded Sex Assigned at Not on file Legal Sex Female 6:07 PM DIRECTOR OF SCIENCE Gender Identity Not on file Sexual Orientation Not on file Obstetrics History Last Filed Vital Signs Vital Sign Reading Time Taken Comments Blood Pressure 120/58 11/11/2024 11:01 AM CDT Pulse 64 11/11/2024 11:01 AM CDT Temperature 36.4 C (97.5 F) 08/21/2024 12:04 PM DIRECTOR OF SCIENCE Respiratory Rate 18 08/21/2024 12:04 PM DIRECTOR OF SCIENCE Oxygen Saturation 97% 11/11/2024 11:01 AM CDT Inhaled Oxygen Concentration - - Weight 62.8 kg (138 lb 6.4 oz) 11/11/2024 11:01 AM CDT Height 172.7 cm (5' 8 ) 11/11/2024 11:01 AM CDT Body Mass Index 21.04 11/11/2024 11:01 AM CDT Plan of Treatment Health Maintenance Due Date Last Done Comments Hepatitis B Screening 1953 Zoster Vaccine (1 of 2) 1987 DTaP/Tdap/Td Vaccine (1 - Tdap) 05/20/2008 8 Covid-19 Vaccine (4 - 2023-2 5 season) 2024 06/27/2021, 10/07/2020, 09/09/2020 Depression Screening 11/30/2024 12/01/2023, 04/14/2023, 09/06/2022, Additional history exists Fall Risk Assessment 11/30/2024 12/01/2023, 06/20/2023, 09/06/2022, Additional history exists Well Visit 65+ 11/30/2024 12/01/2023, 01/2023, 01/04/2022, Additional history exists Pneumococcal vaccine 65+ Completed 01/15/2016, 04/01 Influenza Vaccine Completed 04/12/2024, , 05/11/2023, Additional history exists Insurance MEDICARE [facility]RO[facility] CHOICE PLUS MEDICARE [facility]RO[facility] INDEMNITY [place] MEDICARE RAILROAD [facility] Address: [facility] [address] [place] [address] [facility] INDEMORY [facility] MEDICARE [facility] Advance Directives For more information, please contact: [phone] * Full Code (Latest Code Status on File) Date Activated Date Inactivated Comments 06/15/2023 9:39 PM 06/20/2023 10:44 PM * Full Code Date Activated Date Inactivated Comments 04/14/2023 4:16 PM 04/17/2023 8:39 PM * Full Code Date Activated Date Inactivated Comments 02/16/2021 10:47 AM 02/20/2021 7:21 PM * Full Code Date Activated Date Inactivated Comments 02/14/2021 6:30 AM 02/16/2021 10:47 AM Care Teams Racing Driver Relationship Specialty Start Date End Date Jorge A Colindres MD [address] [place] [id number] PCP - General 10/28/16 Bambi Santos MD [address] [place] [address] Consulting Physician Cardiology 03/23/18 Walt Castellanos MD [address] [place] [address] Surgeon Ophthalmology 08/21/19 Cristiane Mireles MD [address] [facility] [address] [place] [address] Consulting Physician Critical Care Med 06/18/20 [place] [id number] [address] Consulting Physician Gastroenterology 02/19/21 Dariela Edward DO [address] [facility] [address] LJ Gupta [facility] [address] [place] [address] Consulting Physician Otolaryngology 06/20/23
--- OUTSIDE RECORDS SUMMARY | 2024-11-26 10:27 | XMS_ITS | Continuity of Care Document ---
Author Organization [facility] Address [address] [place] [address] Phone Care Team Providers Care Digital Sales Planner Name Role Phone Sam BRYANT, Leisa Unavailable Unavailable Allergies, Adverse Reactions, Alerts Substance Reaction Status Criticality erythromycin base Active No Informa tion QUINAPRIL HCL Active No Information PROPOXYPHENE NAPSYLATE Active No In formation acetaminophen Active No Information codeine Active No Information Sulfa (Sulfonamide Antibiotics) Active No Information Medications Medication Instructions Dosage Effective Dates (start - stop) Status Comments Vevye 0.1 % eye drops instill 1 drop by ophthalmic route every 12 hours 1 drop - Active Xiidra 5 % eye drops in a dropperette instill 1 drop by ophthalmic route 2 times every day into both eyes approximately 12 hours apart 1.00 drop - Active loteprednol etabonate 0.5 % eye drops,suspension instill 1 drop by ophthalmic route 2 times every day into affected eye(s) 1 drop - Active Artificial Tears (carboxymethylcellulose) 1 % eye drops take one tablet daily - Active diltiazem ER 240 mg capsule,24 hr,extended release take 1 capsule by oral route every day 240 MG - Active hydrochlorothiazide 12.5 mg capsule take 1 capsule by oral route every day 12.5 MG - Active gemfibrozil 600 mg tablet take 1 tablet by oral route 2 times every day 30 minutes before morning and evening meal 600 MG - Active losartan 100 mg tablet take 1 tablet by oral route every day 100 MG - Active sertraline 50 mg tablet take 1 tablet by oral route every day 50 MG - Active aspirin 81 mg tablet,delayed release take 1 tablet by oral route every day 81 MG - Active Vitamin D3 1,000 unit capsule take 1 by oral route every day 1 - Active B-12 Plus 5,000 mcg-100 mcg sublingual tablet take 1 by oral route every day 1 - Active Procedures Procedure Date No Charge Optomap Fundus Photos 024 No Charge GDX Retina Office/outpatient Visit, Est Office/outpatient Visit, Est Office/outpatient Visit, Est SCODI, Retina No Charge Optomap Fundus Photos 023 Refraction Eye Exam & Treatment SCODI, Retina No Charge Optomap Fundus Photos 022 Eye Exam & Treatment Fundus Photography W/ Report Eye Exam & Treatment SCODI, Retina Office/outpatient Visit, Est No Charge Optomap Fundus Photos 020 SCODI, Retina Visual Field Examination(s) No Charge Refraction Eye Exam & Treatment Office/outpatient Visit, Est Eye Exam & Treatment Refraction Eye Exam & Treatment Eye Exam & Treatment Eye Exam & Treatment No Charge Refraction Eye Exam & Treatment No Charge Optomap Fundus Photos 013 Office/outpatient Visit, New Eye Photography Eye Exam & Treatment Office/outpatient Visit, Est Post-op Follow-up Visit Post-op Follow-up Visit Post-op Follow-up Visit Post-op Follow-up Visit Post-op Follow-up Visit Post-op Follow-up Visit Post-op Follow-up Visit Post-op Follow-up Visit Repair/graft Eye Lesion Office/outpatient Visit, Est Office/outpatient Visit, Est Office/outpatient Visit, Est Eye Exam & Treatment Post-op Follow-up Visit Post-op Follow-up Visit Post-op Follow-up Visit Post-op Follow-up Visit Remove Cataract, Insert Lens No Charge Cataract Check Office/outpatient Visit, Est IOLMaster Office/outpatient Visit, Est Eye Exam & Treatment Refraction Advance Directives Directive Yes / No Effective Date File Name Other Directive No N/A N/A WARNING:The information contained in this section is historical and is provided for information only and does not constitute a legal document or any assurance that the information is still accurate. Please verify the information with the steiner of the legal document before using it for clinical purposes. Encounters Encounter Description Practice Location Reason(s) For Visit Diagnoses Date Provider Providers Copied on Encounter Office/outpa tient Visit, Est [facility], [address], [place], [place], [address], [place] tel:[phone] SEC [place] Professional Complete Exam (chief complaint) Dry eye syndrome of bilateral lacrimal glandsIschem ic optic neuropathy of right eyePseudopha zoila of both eyes 4 Sma OD Leisa. [address], [place], [place], [address], [place]. tel:[phone] Tyler Mccormack MD.Referring Provider: Champ Bazan, [address] [facility] [address], [place], [address]. tel:[phone] [facility], [address], [place], [place], [address], [place] tel:[phone] SEC [place] No Information -202 4 Ivan Sutton. [address], [address], [place], [place], [address], [place]. tel:[phone] Office/outpa tient Visit, [facility], [address] [place], [place] [address], [place], [place], [address], [place] tel:[phone] SEC Angela COTTRELL Professional Stye FU (chief complaint) Dry eye syndrome of bilateral lacrimal glands Oct- 4 Sam OD Leisa. [address] [place], [place] [address], [address], [place], [place], [address], [place]. tel:[phone] Tyler Mccormack MD.Referring Provider: Champ Bazan, [address] [facility] [address], [place], [address]. tel:[phone] Office/outpa tient Visit, [facility], [address], [place], [place], [address], [place] tel:[phone] SEC Angela COTTRELL Professional Red/painfu l (chief complaint) Hordeolum internum of right lower eyelid 4 Duong OD Jaqui. [address], [address], [place], [place], [address], [place]. tel:[phone] Tyler Mccormack MD.Referring Provider: Champ Bazan, [address] [facility] [address], [place], [address]. tel:[phone] [facility], [address] [facility] [address], [place], [place], [address], [place] tel:[phone] SEC Angela COTTRELL Professional Complete Exam (chief complaint) Drusen (degenerativ e) of macula, right eyeIschemic optic neuropathy of right eyeDry eye syndrome of bilateral lacrimal glands Sep- 3 Sam OD Leisa. [address], [place], [place], [address], [place]. tel:[phone] Tyler Mccormack MD.Referring Provider: Leisa Vargas OD K, [address], [place], [address]. tel:[phone] [facility], [address], [place], [place], [address], [place] tel:[phone] SEC Angela [place] Professional Complete Exam (chief complaint) Drusen (degenerativ e) of macula, right eyeIschemic optic neuropathy of right eyePresence of intraocular lens 2 Emile Oakes. [address] [facility], [address], [place], [place], [address], [place]. tel:[phone] Specialist: Tyler Mccormack MD, [address] [place] [address], [address]. tel:[phone] ng Provider: Champ Bazan, [address] [facility] [address], [place], [address]. tel:[phone] [facility], [address], [place], [place], [address], [place] tel:[phone] SEC Angela [place] Professional Complete Exam (chief complaint) Cystoid macular edema of right eyePseudopha zoila of both eyesDrusen (degenerativ e) of macula, right eyeIschemic optic neuropathy of right eye 1 Emile Oakes. [address] [facility], [address], [place], [place], [address], [place]. tel:[phone] Specialist: Tyler Mccormack MD, [address] [place] [address], [address]. tel:[phone] ng Provider: Vinita White MD L, [address] Professional [facility], [place], [address]. tel:[phone] [facility], [address], [place], [place], [address], [place] tel:[phone] SEC Ipava N Lisa No Information 1 Warrenbillie Hoskins. [address] [place], [address], [place]. [phone] Specialist: Tyler Mccormack MD, [address] [place], [address]. [phone] Office/outpa tient Visit, [facility], [address], [place], [place], [address], [place] tel:[phone] SEC Angela COTTRELL Professional CME f/u (chief complaint) Cystoid macular edema of right eyePresence of intraocular lens 0 Emile Oakes. [address], [address], [place], [place], [address], [place]. tel:[phone] Referring Provider: Vinita White MD L, [address] Junaid Professional [facility] [place], [address]. tel:[phone] [facility], [address], [place], [place], [address], [place] tel:[phone] SEC Angela COTTRELL Professional Complete Exam (chief complaint) Pseudophakia of both eyesGliosis of optic nerve of right eyePunctate keratitis, bilateralEpi retinal membrane (ERM) of right eyeCystoid macular edema of right eyeVisual field loss 0 Emile Oakes. [address], [address], [place], [place], [address], [place]. [phone] Referring Provider: Vinita White MD L, [address] DBharati Professional [facility] ists, [place], [address]. tel:[phone] Office/outpa tient Visit, [facility], [address], [place], [place], [address], [place] tel:[phone] SEC Angela COTTRELL Professional Bubble (chief complaint) Conjunctival cysts, right eye Sep-1 9 Ivan Sutton. [address] [place] [address] Drive, [address], [place], [place], [address], [place]. tel:[phone] Referring Provider: Vinita Willis, [address]una[address] Professional [place], [address]. tel:[phone] [place] [address] Eye [facility] Hospital[facility], [address] [place] [address] [address], [place], [place], [address], tel:[phone] SEC Angela COTTRELL Professional Complete Exam (chief complaint) Pseudophakia of both eyesGliosis of optic nerve of right eyeVitreous degeneration , right eyeLesion of right eyelidPtosis of both eyelids Jul- 9 Emile Oakes. [address] [facility] [place], [address], [place]. tel:[phone] Referring Provider: Vinita Willis, [address] [facility] is, [place], [address]. tel:[phone] [place], [place] [address]Scroll.in [facility], [address] [place] [address] [address], [place], [place], [address], [place] tel:[phone] SEC Angela COTTRELL Professional No Information 9 Emile Oakes. [address] [facility], [address], [place], [place], [address], [place]. tel:[phone] [facility] Eye [facility] HospitalScroll[facility], [address], [place], [place], [address], [place] tel:[phone] SEC Angela COTTRELL Professional Complete Exam (chief complaint) No Information 8 7 Erica Ramon. [address] [place], [address], [place]. tel:[phone] Referring Provider: Vinita Willis, [address] [place], [address]. tel:[phone] [place] [address] Eye [facility], [address], [place], [place], [address], [place] tel:[phone] SEC Angela COTTRELL Professional complete eye exam (chief complaint) No Information 6 Sveta Todd. [address] [facility], [address], [place], [place], [address], [place]. tel:[phone] Referring Provider: Vinita Willis, [address] Professional [employer] [place], [address]. tel:[phone] [place] [address], [address], [place], [place], [address], [place] tel:[phone] SEC Angela COTTRELL Professional Blurry vision (chief complaint) No Information Fabián Hoyt. [address] [facility], [address], [place], [address], [place]. tel:[phone] Referring Provider: Vinita Willis, [address] DBharati Professional [facility] is, [place], [address]. tel:[phone] [place] [address], [address], [place], [place], [address], [place] tel:[phone] SEC Angela COTTRELL Professional No Information 3 Ivan Sutton. [address] [facility] [facility] [address], [address], [place], [place], [address], [place]. tel:[phone] Referring Provider: Vinita Willis, [address] Professional [place], [address]. tel:[phone] Office/outpa tient Visit, [facility], [address], [place], [place], [address], [place] tel:[phone] SEC Ipava N Lisa No Information 3 Ap Sen. [address] [facility], [facility] [place], [address], [place]. tel:[phone] Referring Provider: Vinita Willis, [address] Professional [place], [address]. tel:[phone] [address] [place] [address] Eye [facility], [address], [place], [place], [address], [place] tel:[phone] SEC Angela COTTRELL Professional No Information 2 Sveta Todd. [address] [facility], [facility] [place], [address], [place]. [phone] Referring Provider: Vinita Willis, [address] Professional [place], [address]. tel:[phone] Office/outpa tient Visit, Est [facility], [address], [place], [place], [address], [place] tel:[phone] SEC Angela COTTRELL Professional No Information 0 1 Sveta Todd. [address] [facility], [facility] [place], [address], [place]. [phone] Referring Provider: Vinita Willis, [address] Professional [place], [address]. tel:[phone] [place] [address], [address], [place], [place], [address], [place] tel:[phone] SEC Angela COTTRELL Professional No Information 1 Wankum Perez. [address] [facility]rew[facility], [facility] [place], [address], [place]. tel:[phone] Referring Provider: Vinita Willis, [address] DBharati Professional [place], [address]. tel:[phone] [place], [place] [address] Eye [facility] HospitalScroll.in [facility], [address], [place], [place], [address], [place] tel:[phone] SEC Angela Root No Information 1 Butler Herman. [address], [address], [place], [place], [address], [place]. tel:[phone] Referring Provider: Vinita Willis, [address] DBharati Professional [employer] [place], [address]. tel:[phone] [place] [address] Eye [facility], [address], [place], [place], [address], [place] tel:[phone] SEC Ipava Ana Lindberg No Information 1 Ivan Herman. [address], [address], [place], [place], [address], [place]. [phone] Referring Provider: Vinita Willis, [address] DBharati Professional [employer] [place], [address]. tel:[phone] [place] [address] Eye [facility], [address], [place], [place], [address], [place] tel:[phone] SEC Jovan Ana Lindberg No Information 1 Ivan Herman. [address], [address], [place], [place], [address], [place]. tel:[phone] Referring Provider: Vinita Willis, [address] Professional [employer] [place], [address]. tel:[phone] [place], [place] [address] Eye [facility] HospitalScroll.in [facility], [address], [place], [place], [address], [place] tel:[phone] SEC Jovan N Lindbergh No Information 1 Ivan Herman. [address], [address], [place], [place], [address], [place]. tel:[phone] Referring Provider: Vinita Willis, [address] [place], [address]. tel:[phone] [facility] So[employer] [employer] [facility] CenterScroll.in [facility], [address], [place], [place], [address], [place] tel:[phone] SEC Ipava N Lind[place]h No Information 1 Ivan Herman. [facility] [address], [address], [place], [place], [address], [place]. tel:[phone] [facility] Center[facility] Eye [employer] [facility] CenterScroll.in [facility], [address], [place], [place], [address], [place] tel:[phone] SEC Jovan N Lind[place]h No Information 1 Butler Herman. [address], [address], [place], [place], [address], [place]. tel:[phone] [employer] [facility], [address], [place], [place], [address], [place] tel:[phone] SEC Ipava N Lindbergh No Information 1 Butler Herman. [facility] [address], [address], [place], [place], [address], [place]. tel:[phone] Referring Provider: Vinita Willis, [address] [place], [address]. tel:[phone] [facility] [employer] Eye [facility] HospitalScroll.in [facility], [address], [place], [place], [address], [place] tel:[phone] SEC Ipava N [place] No Information 5 1 Butler Herman. [address] [facility], [address], [place], [place], [address], [place]. [phone] Referring Provider: Vinita Willis, [address] Juna[address] Professional [facility] [place], [address]. tel:[phone] [facility], [address], [place], [place], [address], [place] [phone] [facility] No Information 4 1 Ivan Herman. [address] [facility], [address], [place], [place], [address], [place]. [phone] Referring Provider: Vinita Willis, [address] Juna[address] [facility] [place], [address]. tel:[phone] Office/outpa tient Visit, [facility], [address], [place], [place], [address], [place] tel:[phone] SEC Angela COTTRELL Professional No Information 0 8-201 1 Butler Herman. [address] [place] [address], [address], [place], [place], [address], [place]. [phone] Office/outpa tient Visit, [facility], [address], [place], [place], [address], [place] tel:[phone] SEC Jovan N [place] No Information 3 0-201 0 Ivan Herman. [address] [facility], [address], [place], [place], [address], [place]. [phone] Office/outpa tient Visit, [facility], [address], [place], [place], [address], [place] tel:[phone] SEC [facility] No Information -201 0 Krishnasamy Kyler. [address] [facility] [address], [place], [address], [place]. [phone] [facility], [address], [place], [place], [address], [place] tel:[phone] SEC [facility] Professional No Information 201 0 Saeed Aide. 1 [facility], [address], [place], [place], [facility], [place]. tel:[phone] [facility], [address], [place], [place], [address], [place] tel:[phone] SEC [facility] Professional No Information 5-200 9 Krishnasamy Kyler. [address] [facility] [address], [place], [place], [facility], [place]. tel:[phone] [facility], [address], [place], [place], [address], [place] tel:[phone] SEC [facility] Professional No Information Jun-0 8-200 8 Sveta Todd. [address] [facility] [place], [address], [place]. tel:[phone] Referring Provider: Perez Leary, [address] [facility] A, [place], [address]. tel:[phone] [facility], [address], [place], [place], [address], [place] [phone] SEC [facility] No Information 2 1-200 8 Krishnasamy Kyler. [address] [facility] [address], [place], [address], [place]. tel:[phone] [facility], [address], [place], [place], [address], [place] tel:[phone] SEC [facility] No Information 4-200 8 Krishnasamy Kyler. [address] [facility] [address], [place], [address], [place]. tel:[phone] [facility], [address], [place], [place], [address], [place] tel:[phone] [facility] No Information 3-200 8 Krishnasamy Kyler. [address] [facility] [address], [place], [address], [place]. tel:[phone] [facility], [address] [place] [address] [address], [place], [place], [address], [place] tel:[phone] SEC Angela NE Professional No Information 3-200 8 Krishnasamy Kyler. [address] [facility] [address], [place], [address], [place]. tel:[phone] Office/outpa tient Visit, [facility], [address] [place] [address] [address], [place], [place], [address], [place] tel:[phone] SEC [place] Professional No Information 8-200 8 Krishnasamy Kyler. [address] [facility] 102, [place], [address], [place]. tel:[phone] Referring Provider: Herman Leary, [address] [place] [address], [place], [address]. tel:[phone] [facility]pa [facility]ient [facility], [facility], [address] [place] [address] [address], [place], [place], [address], [place] tel:[phone] SEC Angela NE Professional No Information 3-200 8 Ivan Sutton. [facility] [address], [address], [place], [place], [address], [place]. tel:[phone] [facility], [address] [place] [address] [address], [place], [place], [address], [place] tel:[phone] SEC Angela COTTRELL Professional No Information 7 Sveta Todd. [address] [facility], [address], [place], [place], [address], [place]. tel:[phone] Family History Family Member Type Diagnosis Age At Onset Sister Problem (finding) Glaucoma and Diabetes Payers Payer name Insurance type Covered republican ID Authoriza tipoonam(s) Medicare MB [id number] [facility] CI [id number] Social History Type Description Quantity Date Captured Comments Alcohol Use Details No Caffeine Use Details coffee Tobacco Use Status Current non-smoker Smoking Status Never smoker Non-Smoking Tobacco Use Details : No Details Available : No Details Available Sex Female Gender Identity Female Chief Complaint And Reason For Visit From encounter dated '04/08/2024 11:15'. Complete Exam (chief complaint). Description: The 89 year old patient presents for a complete exam ou. Patient is pseudo ou with yag cap ou. Patient has hx of NAION OD. Patient is unsure of the namesof the drops she is using. Patient denies any changes in vision ou. Reason For Referral Reason For Referral No Information Plan Of Treatment Date Type Action Status Referral Ordered: Tyler Mccormack MD -Ophthalmology (related to Cystoid macular edema of right eye) ordered Referral Referred To: Tyler Mccormack [address] [place], [phone] Ordered: Referrals: Allopathic & Osteopathic Physicians : Ophthalmology. Tyler Mccormack. Evaluate and treat ordered Referral Referred To: Tyler Mccormack MD [address] [place], [phone] Ordered: Referrals: Ophthalmology. Tyler Mccormack MD. Evaluate and treat ordered Patient Education Lillie: Car e Instructions completed Patient Education Learning About Retinal Drusen completed Patient Education Age-Related Macular Deg eneration: Car~ completed Patient Education Age-Related Macular Deg eneration: Car~ completed Patient Education Learning About Vitreous Detachment completed History Of Present Illness Encounter Date Complaint History Of Prese nt Illness Complete Exam The 89 year old patient presents for a complete exam ou. Patient is pseudo ou with yag cap ou. Patient has hx of NAION OD. Patient is unsure of the names of the drops she is using. Patient denies any changes in vision ou. Stye FU The 88 year old patient presents for evaluation of Stye FU in the right eye. Pt states that OD has been itching for the past couple days and pt states that today OD feels better. Pt uses Lubricating Gtts as needed in OU. Pt states that OD never felt like it healed since last visit. Red/painful The 88 year old patient presents for evaluation of Red/painful in the right eye. Pt states that about 2-3 days ago they noticed that OD was red/puffy and pt states that it hasn't seemed to have been getting any better or any worse. Pt uses Systane about BID-TID Month. Complete Exam The 88 year old patient presents for evaluation of Complete Exam in the right eye and left eye. Pt. states her vision gets blurry off and on with OD. Pt. states occasionally eyes itch. Pt states using AT's occasionally without much difference noticed. Complete Exam The 86 year old patient presents for evaluation of Complete Exam in the right eye and left eye. Hx of PCIOL OU, YAG PC OU, ERM OD, RPE Mottling OU, CME OD, Drusen OD, NAION OD, and Scleral Patch graft OD. Patient denies any changes with eyes, everything seems the same. Patient uses an ART prn OU. Complete Exam The 85 year old female presents for evaluation of Complete Exam in the right eye and left eye. Hx of PCIOL OU, YAG PC OU, ERM OD, RPE Mottling OU, Cystoid Macular Edema OD, Scleral Patch Graft OD, and Ischemic Optic Neuropathy OD. Patient states her eyes itch sometimes in the morning. Patient sates no changes she still can't see out of her right eye. Patient has an appointment with Dr. Mccormack the first week of December CME f/u The 84 year old female presents for evaluation of CME f/u in the right eye with OCT-MAC, Optomap, and DFE in the right and left eye. Pt reports she uses AFT QD-BID OU and isn't currently using the Ketorolac or Pred anymore. Pt reports she hasn't noticed any changes in VA, OU, since last appt. Complete Exam The 84 year old female presents for evaluation of Complete Exam in the right eye and left eye. Patient is pseudo ou with yag cap OD. Patient c/o eyes have been itching for a long time. Patient recently had Ptosis sx (Dr. Pickett) on 08/29/19. Patient states they told her left lid wasn't ready. Patient states it has been hard to focus with OD. Bubble The 84 year old female presents for evaluation of Bubble in the right eye. Hx of PC IOL OU, Yag PC OD, Staphyloma OD, Vitreous Prolaps OD, Lesion of lid OD, and Gliosis of Optic nerve OD. Pt reports her bubble is back above her iris OD over the past month. RUL is drooping more than usual and is sore for 1 month. Itching OU x 1 month. Slight RUSH temporal brow OD. She feels her vision has decreased since last visit when reading. Complete Exam The 83 year old female presents for a complete exam ou. Patient is pseudo ou with yag cap OD. Patient c/o eyes itch. Patient states OD is a weak eye. Patient uses AT ou. Complete Exam The 82 year old female presents for Complete Exam in the right eye and left eye. Hx Repair Superior Wound Dehiscense w/Scleral Graft OD, PCIOL OU, Yag-PC OD, Ptosis, Staphaloma OD, Vitreous Prolapse OD. Pt states vision OD has been fuzzy for over 1 yr, and OS is in known. Pt currently using OTC AFT's , Pt denies any pain or discomfort, and has no visual concerns at this time. complete eye exam The 80 year ol d female presents for evaluation of complete eye exam. Pt. states that her vision is OS is doing well. OD is the eye that gives her the problem because it's the weaker eye. Pt. states that she feels her eye lids has dropped more. Pt. denies any pain or discomfort at this time Pt. uses AFT for occ. dryness PRN. Blurry vision The 79 year old female presents for Complete Exam. HX Scleral graft OD 2010, Phaco IOL OU, YAG OD, and Ptosis. Pt states OD is scummy . Pt uses OTC AT PRN and would like samples. Pt denies RX history of Alphagan or Tob/dex. Functional Status Date Functional Assessmen t No Information Instructions Date Instruction Additional Infor mation Impression/Plan Impression/Plan Impression/Plan Impression/Plan Impression/Plan Impression/Plan Impression/Plan Impression/Plan Impression/Plan Impression/Plan Return in 1 year wit malu Maldonado M.D. for Complete Exam. 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 for Complete Exam. 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 IOP is good. Vision is stable. I recommend new glasses, rx given to patient. Return to clinic in 1 year for complete exam or sooner with problems. 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 for , Complete Exam. Impression/Plan - Di scussed diagnosis in detail. IOLs in good position. 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 Ptosis OD discussed no treatment needed. Return to clinic in 1 year for complete exam or sooner with any problems. Pseudophakia of both eyes - Educational material given Related to Pseudophakia of both eyes - Return in 1 year w bradley Bangura M.D. for Complete Exam Related to See list of assessments above - Discussed diagnosi s in detail with patient. Continue using artificial tears for dry eyes. Return to clinic in 1 year for complete exam or sooner with any problems. Related to See list of assessments above General plan -LENS R EPLACEMENT NEC -MYOGENIC PTOSIS - Discusseed dx with pt, treatment options discussed.Pt wishes to be referred toDr. CusterLetter dictated Educational materials provided:about today's exam. Related to See impression: general plan - 1 yr complete exam Related to See impression: general plan FOLLOW-UP SURGERY NO S, OD - S/P -scleral graft stable - Continue using same medication. Sutures removed at slit lamp 5 remain.pt to return in 1-2 weeks with GAW for RefractionSample Tobramycin given use bid for 2 days. Related to FOLLOW-UP SURGERY NOS - 1-2 weeks with GAW Related to FOLLOW-UP SURGERY NOS - 4 weeks- with ar Related to FO LLOW-UP SURGERY NOS FOLLOW-UP SURGERY NO S, OD - S/P -scleral graft stable- 7 sutures removed. 7 remain- healing nicely - increase gtts 2-3 times today then back down to qday tomorrow. AR next visit if unable to AR- pt needs K's Related to FOLLOW-UP SURGERY NOS FOLLOW-UP SURGERY NO S, OD - S/P -scleral graft stable. IOP stable with RX - CSM TID for 1 week, BID for 1 week then q day Related to FOLLOW-UP SURGERY NOS - return 3 weeks Related to FOLL OW-UP SURGERY NOS FOLLOW-UP SURGERY NO S, OD - S/P -scleral graft and wound repair- will continue to monitor - Discussed diagnosis in detail with patient. Will continue to observe condition and or symptoms. CSM add alphagan OD Qday sample given to pt. Related to FOLLOW-UP SURGERY NOS - 3 week IOP check w ith GAW/[address] Love at the [place] office Related to FOLLOW-UP SURGERY NOS FOLLOW-UP SURGERY NO S, OD s/p Wound repair w/ scleral graft - IOP elevated - continue same meds as directed- Sample Alphagan given OD QD Related to FOLLOW-UP SURGERY NOS - 3 weeks with SARTHAK smith n Angela IOP check- then [address] Love Related to FOLLOW-UP SURGERY NOS FOLLOW-UP SURGERY NO S, OD - established, stable - will continue to monitor. iop improved - Medication instillation reviewed and understood. 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
--- OUTSIDE RECORDS SUMMARY | 2024-11-26 10:27 | XMS_ITS | Data Portability ---
Author Organization [facility] JAVIShanna Santoyo Address [address] [place] [id number] Assessment No assessment recorded. Plan of Treatment Reminders Order Date Submit Date Provider Last Modified By Organization Details Last Modified Time Details Appointments None record ed. Lab None record ed. Referral None record ed. Procedures None record ed. Surgeries None record ed. Imaging None record ed. Medication Orders None record ed. Patient TargetsNo targets recorded. Patient InstructionsNo instructions recorded. Reason for Referral None Reported. Medical Equipment None Reported. Vitals None Recorded Social History None recorded. Functional Status None recorded. Mental Status None recorded. Family History Nothing Reported. Medical History No medical history recorded. Gynecological HistoryNo gynecological history recorded. Obstetrics History GPAL:G 0 P 0 0 0 0 Immunizations Vaccine Type Date Status Note Provider Nam e and Address Organization Details Recorded Time COVID-19, mRNA, LNP-S, PF, 100 mcg/0.5mL dose or 50 mcg/0.25mL dose 09/09/2020 completed Larua Sal LPN [facility], [facility] 09/09/2020 12:30:58 COVID-19, mRNA, LNP-S, PF, 100 mcg/0.5mL dose or 50 mcg/0.25mL dose 10/07/2020 completed Maggie Davalos MA [facility], [facility] 10/07/2020 15:42:28 Past Encounters Encounter ID Performer Location Encounter Start Date Encounter Closed Date Diagnosis/Indication Diagnosis SNOMED-CT Code Diagnosis ICD10 Code Diagnosis Note [id number] JOSE Ordonez [address] [place] [place] [id number] 09/09/2020 10:55:12 09/10/2020 08:25:55 Administration of SARS-CoV-2 antigen vaccine [id number] Z23 [id number] JOSE Ordonez [address] [place] [address] 10/07/2020 10:33:14 10/09/2020 10:59:27 Administration of SARS-CoV-2 antigen vaccine [id number] Z23 Health Concerns Section Related Observation LastModified by Organization Detai ls LastModified Time None Recorded Concern Status LastModified by Organization Details LastModified Time None Recorded Advance Directives Directive None Recorded Payers Encounter Date Sequence Insurance Name Policy Number Policy Reynoso Covered Member ID Reynoso Member ID Guarantor Name 09/09/2020 1 [place] Fadumo Rdz [id number] 3 Fadumo Rdz 10/07/2020 1 [place] Fadumo Rdz [id number] 3 Fadumo Rdz OBGyn Episode No OBEpisode recorded.
--- OUTSIDE RECORDS SUMMARY | 2024-11-26 10:27 | XMS_ITS | Clinical Summary ---
Author Organization [facility] Address [address] [facility] [place] [address] Phone Care Team Providers Care Flatware Maker Name Role Phone Kvng Smith DPM Unavailable [phone] Jorge A Colindres MD Primary Care Provider [phone] Allergies Active Allergy Reactions Criticality Noted Date Comments Codeine Unknown 01/14/2016 Sulfa Antibiotics Unknown 01/14/2016 Medications gemfibrozil (LOPID) 600 MG Tablet 1 Tab 2 times daily. 2 6 Active losartan (COZAAR) 100 MG Tablet 1 Tab daily. 2 6 Active amLODIPine (NORVASC) 5 MG Tablet 1 Tab daily. 0 6 Active citalopram (CELEXA) 40 MG Tablet 1 Tab daily. 2 6 Active Aspirin 81 MG Tablet Take 81 mg by mouth daily. Active Meloxicam 15 MG TabletIndications:P rimary osteoarthritis of both feet Take 1 Tab by mouth daily. 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 01/14/2016 Gastrocnemius equinus of right lower extremity 0 01/14/2016 Immunizations Immunization Administration Dates Next Due Covid-19, Mrna, Lnp-s, PF, 1 00 mcg/0.5 mL Dose (Moderna) 10/07/2020,09/09/2020 Family History Medical History Relation Name Comments Heart Disease Father Heart Disease Mother Cancer Sister Diabetes Sister Relation Name Status Comments Father Mother Sister Social History Tobacco Use Types Packs/Day Years Used Date Smoking Tobacco: Never Smokeless Tobacco: Never Tobacco Cessation:Counseling Given: Yes Alcohol Use Standard Drinks/Week Comments No 0 (1 standard drink = 0.6 oz pur e alcohol) Comments No Sex and Gender Information Value Date Recorded Sex Assigned at Not on file Legal Sex Female 9:47 PM CDT Gender Identity Not on file Sexual Orientation Not on file Last Filed Vital Signs Vital Sign Reading Time Taken Comments Blood Pressure 146/68 03/30/2016 2:44 PM CDT Pulse 69 03/30/2016 2:44 PM CDT Temperature 36.8 C (98.3 F) 03/30/2016 2:44 PM CDT Respiratory Rate 20 01/14/2016 9:37 AM CDT Oxygen Saturation 96% 03/30/2016 2:44 PM CDT Inhaled Oxygen Concentration - - Weight 81.6 kg (180 lb) 03/30/2016 2:44 PM CDT Height 167.6 cm (5' 6 ) 03/30/2016 2:44 PM CDT Body Mass Index 29.05 03/30/2016 2:44 PM CDT Plan of Treatment Health Maintenance Due Date Last Done Comments DEXA Bone Density 1935 Hepatitis C Virus (HCV) Screening 1935 TdaP Immunization 1935 Zoster Immunization (1 of 2) 1987 Respiratory Syncytial Virus (RSV) Immunization (Adult) (1 - 1-dose 75+ series) 01/06/2012 Influenza Immunization (#1) 03/31/202404/30, 05/18/2022, 05/18/2021, Additional history exists SARS-COV-2 Immunization ( season) 2024 06/27/2021, 10/07/2020, 09/09/2020 DTaP/Tdap/Td Immunization Discontinued 05/19/2008 Pneumococcal Immunization (50+ years) Completed 01/15/2016, 04/21/2004 Pneumococcal Immunization Combined Discontinued 01/15/2016, 04/21/2004 Hepatitis B Immunization Aged Out No longer eligible based on patient's age to complete this topic Meningococcal Immunization (ACWY) Aged Out No longer eligible based on patient's age to complete this topic Rotavirus Immunization Aged Out No lo nger eligible based on patient's age to complete this topic Insurance MEDICARE RAILROAD Care Teams Flatware Maker Relationship Specialty Start Date End Date Jorge A Colind[place] [address] [place] [address] PCP - General Internal Medicine 01/13/16 Kvng Smith DPM Podiatry 01/13/16
--- OUTSIDE RECORDS SUMMARY | 2024-11-26 10:27 | XMS_ITS | Clinical Summary ---
Author Organization [facility] Address [address] [address] Care Team Providers Care Bean Sprout Grower Name Role Phone Denzel Beckford MD Unavailable [phone] Jorge A Colindres MD Primary Care Provider [phone] Source Comments [facility],non-owned Affiliates and Associated Physician Practices is amultiple site organization consisting of ambulatory clinics and hospital sitesin [place], [place], [place] and [place]. This disclosure is being madepursuant to the Care Everywhere program and may not contain all information available regarding this patient. Last updated 18.[facility] Allergies Active Allergy Reactions Criticality Noted Date Comments Codeine Unknown 05/30/2011 Erythromycin Rash Low 06/21/2011 Propoxyphene Unknown 09/20/2019 Quinapril Unknown 09/20/2019 Sulfa Drugs Rash Low 05/30/2011 Medications * Be aware that medications may not be up to date on this document. Alwaysverify current medications with the patient. losartan (COZAAR) 100 MG tablet Take 0.5 (one-half) tablet by mouth once daily after breakfast Instructed to take AM of surgery Active aspirin (ASPIRIN) 81 MG tablet Take 1 (one) tablet by mouth once daily Active sertraline (ZOLOFT) 50 MG tablet Take 1 (one) tablet by mouth 2 times daily 0 Active amLODIPine (Norvasc) 5 MG tablet Take 1 (one) tablet by mouth once daily 4 025 Active OtherIndicatio ns:eye drops bilat eyes once daily Reasons: eye drops bilat eyes Active mirtazapine (Remeron) 15 MG tablet Take 1 (one) tablet by mouth at bedtime Active vitamin D, ergocalciferol , (Drisdol) 1.25 MG (26514 UT) capsule Take 1 (one) capsule by mouth every 7 days 12 capsule 4 Active Additional Information Patient not taking.Reported on 05/03/2024 oxyCODONE, immediate release, (Roxicodone) 5 MG tabletIndicati ons:Breakthrou gh pain Take 1 (one) tablet by mouth every 6 hours as needed Reasons: Breakthrough pain 14 tablet 4 Active Additional Information Patient not taking.Reported on 05/03/2024 acetaminophen (Tylenol) 325 MG tablet Take 2 (two) tablets by mouth every 6 hours as needed for Fever or Pain Maximum allowable Acetaminophen amount = 4 Grams (4000 mg) / 24 hours. 30 tablet 4 Active ibuprofen (Motrin) 600 MG tablet Take 1 (one) tablet by mouth every 6 hours as needed for Pain 15 tablet 4 Active Additional Information Patient not taking.Reported on 05/03/2024 calcitriol (Rocaltrol) 0.25 MCG capsule Take 1 (one) capsule by mouth 2 times daily for 21 days 42 capsule 4 Active Additional Information Patient not taking.Reported on 05/03/2024 hydrALAZINE (Apresoline) 25 MG tablet Take 1 (one) tablet by mouth 2 times daily 4 Active denosumab (Prolia) 60 MG/ML SC injection Inject 1 mL subcutaneously as directed 4 Active cephalexin (Keflex) 500 MG capsule Take 1 (one) capsule by mouth 3 times daily Active Active Problems Problem Noted Date Diagnosed Date Hyperparathyroidism 04/18/2024 Presence of left artificial knee joint 0 Primary osteoarthritis of right knee 09/20/2019 Non-rheumatic mitral regurgitation 05/08/2019 Anxiety 09/25/2018 Hypercholesterolemia 11/17/2016 Overview (09/20/2019): Hypercholesterolemia Knee joint replacement by other means 03/26/2012 Osteoarthrosis involving lower leg 01/17/2012 Overview (10/24/2015): 2015 IMO Updt Low back pain 05/30/2011 Overview (06/07/2015): Immunizations Immunization Administration Dates Next Due INFLUENZA VACCINE, TRIV. (AF LURIA, FLUZONE TRIVALENT; 6MO+) (IIV3) 05/28/2015 INFLUENZA VACCINE 05/17/2018 INFLUENZA VACCINE, ADJUVANTE D, QUADR. (FLUAD QUADRIVALENT; 65Y+) (AIIV4) 05/18/2022 INFLUENZA VACCINE, ADJUVANTE D, TRIV. (FLUAD TRIVALENT; 65Y+) (AIIV3) 05/10/2019 INFLUENZA VACCINE, HIGH-DOSE , QUADR. (FLUZONE HIGH-DOSE QUADRIVALENT; 65Y+), 0.7 ML (HD-IIV4) 04/12/2024,05/11/2023,05/18/2021,2019,05/17/2018,05/29/2017 INFLUENZA VACCINE, HIGH-DOSE , TRIV. (FLUZONE HIGH-DOSE TRIVALENT; 65Y+) (HD-IIV3) 04/12/2024,05/17/2018 PNEUMOCOCCAL PPV VACCINE 04/21/2004 Pneumococcal Pcv13 Conj 01/15/2016 TD (AGE 7-ADULT) 05/19/2008 Family History Medical History Relation Name Comments Heart Failure Brother 4 CAD (Coronary Artery Disease) Father Heart Failure Father CAD (Coronary Artery Disease) Mother Heart Failure Mother Diabetes Sister 6 Cancer Sister 7 Relation Name Status Comments Brother 1 Alive Brother 2 Alive Brother 3 Brother 4 Father Mother Sister 1 Alive Sister 2 Alive Sister 3 Alive Sister 4 Sister 5 Sister 6 Sister 7 Social History Tobacco Use Types Packs/Day Years Used Date Smoking Tobacco: Never Smokeless Tobacco: Never Alcohol Use Standard Drinks/Week Comments No 0 (1 standard drink = 0.6 oz pur e alcohol) AUDIT-C Answer Date Recorded Q1: How often do you have a drink containing alcohol? Never 04/18/2024 Q2: How many drinks containi ng alcohol do you have on a typical day when you are drinking? Patient does not drink Q3: How often do you have si x or more drinks on one occasion? Never 04/18/2024 Overall Financial Resource Strain (CARDIA) Answe r Date Recorded How hard is it for you to pa y for the very basics like food, housing, medical care, and heating? Not very hard 04/18/2024 [facility] [place] [facility] - Occupational Stress Questionnaire Answer Date Recorded Do you feel stress - tense, restless, nervous, or anxious, or unable to sleep at night because your mind is troubled all the time - these days? Only a little 04/18/2024 Hunger Vital Sign Answer Date Recorded Within the past 12 months, y ou worried that your food would run out before you got the money to buy more. Never true 04/18/20 24 Within the past 12 months, t he food you bought just didn't last and you didn't have money to get more. Never true 04/18/2024 PRAPARE - Transportation Answer Date Re corded In the past 12 months, has l ack of transportation kept you from medical appointments or from getting medications? No 03/31 In the past 12 months, has l ack of transportation kept you from meetings, work, or from getting things needed for daily living? No 04/18/2024 Housing Stability Vital Sign Answer Stu e Recorded In the last 12 months, was t here a time when you were not able to pay the mortgage or rent on time? No 04/18/2024 In the last 12 months, how many places have you lived? 1 04/18/2024 In the last 12 months, was t here a time when you did not have a steady place to sleep or slept in a fci (including now)? No 04/18/2024 Comments Unknown Sex and Gender Information Value Date Recorded Sex Assigned at Not on file Legal Sex Female 9:38 AM IMMIGRATION ATTORNEY Gender Identity Not on file Sexual Orientation Not on file Last Filed Vital Signs Vital Sign Reading Time Taken Comments Blood Pressure 138/70 05/03/2024 1:04 PM CDT Pulse 61 05/03/2024 1:04 PM CDT Temperature 36.4 C (97.6 F) 04/20/2024 11:53 AM CDT Respiratory Rate 17 04/20/2024 11:53 AM CDT Oxygen Saturation 96% 04/20/2024 11:53 AM CDT Inhaled Oxygen Concentration - - Weight 61.1 kg (134 lb 9.6 oz) 05/03/2024 1:04 P M CDT Height 157.5 cm (5' 2 ) 05/03/2024 1:04 PM CDT Body Mass Index 24.62 05/03/2024 1:04 PM CDT Plan of Treatment Health Maintenance Due Date Last Done Comments MEDICARE AWV 12 MONTHS 1935 ZOSTER VACCINE (1 of 2) 1987 Respiratory Syncytial Virus (RSV) Vaccine Pt: or over 60 yrs (1 - 1-dose 75+ series) 01/06/2012 DTAP/TDAP/TD VACCINES (2 - Td or Tdap) 05/19/2018 05/19/2008 COVID-19 VACCINE ( season) 2024 06/27/2021, 10/07/2020, 09/09/2020 DEPRESSION SCREENING 07/31/2024 PNEUMOCOCCAL VACCINE 50+ Completed 01/15/2016, 04/01 BONE DENSITY TESTING Completed 02/06/2024, 01/30/2023, 01/13/2021, Additional history exists INFLUENZA VACCINE Completed 04/12/2024, , 05/11/2023, Additional history exists HEPATITIS B VACCINE Aged Out No longe r eligible based on patient's age to complete this topic HIB VACCINE Aged Out No longer eligi ble based on patient's age to complete this topic HPV VACCINE Aged Out No longer eligi ble based on patient's age to complete this topic MENINGOCOCCAL (Group B) VACCINE SHARED DECISION-MAKING Aged Out No longer eligible based on patient's age to complete this topic MENINGOCOCCAL GROUPS A/C/Y/W VACCINE Aged Out No longer eligible based on patient's age to complete this [place] [place] [address] MEDICARE [facility] MEDICARE Advance Directives Documents on File Type Date Recorded Patient Beam Dyer Recessed Vat Expl anation Adv Directive/Living Will/POA 03/09/2012 2:35 PM * Full Code (Latest Code Status on File) Date Activated Date Inactivated Comments 04/18/2024 3:08 PM 04/20/2024 6:45 PM * FULL RESUSCITATION Date Activated Date Inactivated Comments 03/05/2012 2:02 PM 03/08/2012 1:35 PM * FULL RESUSCITATION Date Activated Date Inactivated Comments 06/29/2011 1:53 PM 07/01/2011 10:25 PM Care Teams Bean Sprout Grower Relationship Specialty Start Date End Date Jorge A Colindres MD [address] [address] PCP - General Internal Medicine 03/08/24 [place] [id number] [address] Orthopedic Surgery 02/24/12
--- OUTSIDE RECORDS SUMMARY | 2024-11-26 10:27 | XMS_ITS | Referral Summary ---
Author Organization [facility] Virtual Care Address [address] [place] [address] Phone Care Team Providers Care Public Records Researcher Name Role Phone Jorge A Colindres MD Primary Care Provider [phone] Bambi Santos MD Unavailable [phone] Walt Castellanos MD Unavailable [phone] Cristiane Mireles MD Unavailable [phone] Delilah Zavala MD Unavailable [phone] Dariela Edward DO Unavailable [phone] Encounters Date Type Department Care Team Description 11/11/2024 11:00 AM CDT Office Visit [facility] Medical Group Cardiology [address] [facility] [address] [place] [address] Bisi Douglass MD Abdominal aortic aneurysm (AAA) 3.0 cm to 5.0 cm in diameter in female (Primary Dx); Hypertension, essential; Mixed hyperlipidemia; Nonrheumatic aortic valve stenosis from Last 3 Months Allergies Active Allergy Reactions Criticality Noted Date [...] cyanocobalamin (vitamin B-12) 1,000 mcg tabletIndication s:on Take 1 tablet (1,000 mcg total) by mouth 2 (two) times a week 04/17/20 23 025 Active Additional Information Patient not taking.Reported [...] 04/12/2024 Assessment & Plan (08/07/2024 12:56 PM AEROSPACE STRESS ENGINEER): CHRONIC AND STABLE REMERON HS FOR APPETITE [...] ) AND MILD AORTIC STENOSIS F/U DR LLAMSA [facility] AT [facility] HYPERCALCEMIA WITH AN ELEVATED INTACT PTH, NL [...] 06/15/2022 Assessment & Plan (06/15/2022 9:44 AM AEROSPACE STRESS ENGINEER): Chronic problem Please refer to note for [...] (08/09/2019): Added automatically from request for surgery [id number] 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 Lungs clear. Labs from last month and ECHO from 03/2022 were unremarkable, Associate Editor at baseline. Advised this is likely from anxiety and poor appetite. See plan for anxiety/depression above. Non-rheumatic mitral regurgitation 05/08/2019 Caregiver role strain 02/12/2019 Assessment & Plan (06/15/2022 9:57 AM AEROSPACE STRESS ENGINEER): Chronic problem Patient's has dementia - patient [...] week if haven't heard from home health social media content specialist - will have office staff reach out [...] Hypercholesterolemia Assessment & Plan (08/07/2024 12:55 PM AEROSPACE STRESS ENGINEER): FLP AND LDL WERE REVIEWED GOAL LDL [...] 07/27/2010 Assessment & Plan (08/07/2024 12:55 PM AEROSPACE STRESS ENGINEER): GOAL BP IS 130/80 OR UNDER LOW [...] 05/26/2023 Assessment & Plan (06/15/2022 9:49 AM AEROSPACE STRESS ENGINEER): Acute problem, patient reports only one occurrence [...] breath, dizziness, weakness/fatigue to the office or certified ethical hacker Follow up with cardiology as recommended Follow up with PT as recommended and able Follow up with Dr. Colindres as scheduled or sooner if necessary Rectal bleeding 02/14/2021 05/26/2023 Immunizations Immunization Administration Dates Next Due Influenza, Quad, Adjuvantate d, Intramuscular 05/18/2022 Influenza, Quadrivalent, Hig h Dose, Preservative Free, Intrr 05/11/2023,05/18/2021,05/25/2020,05/29 Influenza, Trivalent, Adjuva nted, Intramuscular 05/10/2019 Influenza, Trivalent, High D ose, Split, Preservative Free, Intramuscular 04/12/2024,05/17/2018,05/29/2017 Influenza, Trivalent, IM (MDV) 05/28/2015 Influenza, Unspecified 04/12/2024,05/25/2020, Pneumococcal Conjugate PCV 13 01/15/2016 Pneumococcal Polysaccharide PPV23 04/21/2004 Td, adsorbed 05/19/2008 Social History Tobacco Use Types Packs/Day Years [...] materials from doctor or pharmacy Never 07/10/2023 [place] Utilities Answer Date Recorded In the past 12 months has th e Protalex, gas, oil, or water [employer] threatened to shut off services in your [...] 06/16/2023 How often do you attend chur ch or denominational services? Never 06/16/2023 Do you belong to any clubs o r organizations such as hinduism groups, unions, fraternal or athletic groups, or [...] place to sleep or slept in a usp (including now)? No 06/16/2023 Personal Safety Answer [...] on file Legal Sex Female 6:07 PM AEROSPACE STRESS ENGINEER Gender Identity Not on file Sexual Orientation Not on file Last Filed Vital Signs Vital Sign Reading Time Taken Comments Blood Pressure 120/58 11/11/2024 11:01 AM CDT Pulse 64 11/11/2024 11:01 AM CDT Temperature 36.4 C (97.5 F) 08/21/2024 12:04 PM AEROSPACE STRESS ENGINEER Respiratory Rate 18 08/21/2024 12:04 PM AEROSPACE STRESS ENGINEER Oxygen Saturation 97% 11/11/2024 11:01 AM CDT Inhaled Oxygen Concentration - - Weight 62.8 kg (138 lb 6.4 oz) 11/11/2024 11:01 AM CDT Height 172.7 cm (5' 8 ) 11/11/2024 11:01 AM CDT Body Mass Index 21.04 11/11/2024 11:01 AM CDT Plan of Treatment Not on file Insurance MEDICARE RAILROAD [facility] CHOICE PLUS MEDICARE RAILROAD [facility] MEDICARE RAILROAD [facility] [place] [address] MEDICARE RAILROAD [facility] INDEMNITY [place] Advance Directives For more information, please contact: [phone] * Full Code (Latest Code Status on File) Date Activated Date Inactivated Comments 06/15/2023 9:39 PM 06/20/2023 10:44 PM * Full Code Date Activated Date Inactivated Comments 04/14/2023 4:16 PM 04/17/2023 8:39 PM * Full Code Date Activated Date Inactivated Comments 02/16/2021 10:47 AM 02/20/2021 7:21 PM * Full Code Date Activated Date Inactivated Comments 02/14/2021 6:30 AM 02/16/2021 10:47 AM Care Teams Public Records Researcher Relationship Specialty Start Date End Date Jorge A Colindres MD [address] [place] [address] PCP - General 10/28/16 Bambi Santos MD [address] [place] [address] Consulting Physician Cardiology 03/23/18 Walt Castellanos MD [address] [place] [address] Surgeon Ophthalmology 08/21/19 Cristiane Mireles MD [address] [place] [address] Consulting Physician Critical Care Med 06/18/20 [place] [address] [facility] [address] [place] [address] Consulting Physician Gastroenterology 02/19/21 Dariela Edward DO [address] [facility] [address] [facility] [address] [place] [address] Consulting Physician Otolaryngology 06/20/23
--- OUTSIDE RECORDS SUMMARY | 2024-11-26 10:27 | XMS_ITS | Clinical Summary ---
Author Organization [facility] Cruz gray [facility] Address [address] [place] [address] Care Team Providers Care Senior Nuclear Medicine Technologist Name Role Phone Unavailable Primary Care Provider Unavailabl e Allergies Active Allergy Reactions Criticality Noted Date Comments Codeine Unknown 05/30/2011 Erythromycin Rash Medium 06/21/2011 Propoxyphene Unknown 09/20/2019 Quinapril Unknown 09/20/2019 Sulfa (Sulfonamide Antibiotics) Rash Medium 01/29 Medications aspirin (ECOTRIN EC) 81 mg Tablet, Delayed Release (E.C.) Take 81 mg by mouth daily. Active losartan (COZAAR) 100 mg tablet Take 100 mg by mouth daily. 4 Active mirtazapine (REMERON) 15 mg tablet Take 15 mg by mouth daily at bedtime. 4 Active sertraline (ZOLOFT) 50 mg tablet Take 50 mg by mouth daily. 4 Active hydrALAZINE (APRESOLINE) 25 mg tablet TAKE 1 TABLET(25 MG) BY MOUTH THREE TIMES DAILY 3 Active amLODIPine (NORVASC) 5 mg tablet Take 5 mg by mouth daily. 4 12/01/19 25 Active denosumab (PROLIA) 60 mg/mL Syringe Inject 60 mg by subcutaneous injection. 4 Active Active Problems No known active problems Encounters Date Type Department Care Team Description 09/18/2024 External Device Data STL ABSTRACTION Provider, Abstract 08/28/2024 External Device Data STL ABSTRACTION Provider, Abstract from Last 3 Months Family History Medical History Relation Name Comments Heart Disease Brother Diabetes Child 1 Throat Cancer Child 1 Breast Cancer Child 2 Heart Disease Father Heart Disease Mother Breast Cancer Sister 1 Diabetes Type 1 Sister 2 Relation Name Status Comments Brother Alive Child 1 Alive Child 2 Alive Father Mother Sister 1 Alive Sister 2 Alive Social History Tobacco Use Types Packs/Day Years Used Date Smoking Tobacco: Never Smokeless Tobacco: Never Alcohol Use Standard Drinks/Week Comments Never 0 (1 standard drink = 0.6 oz pur e alcohol) Comments Unknown Sex and Gender Information Value Date Recorded Sex Assigned at Not on file Legal Sex Female 3:31 PM CDT Gender Identity Not on file Sexual Orientation Not on file Last Filed Vital Signs Vital Sign Reading Time Taken Comments Blood Pressure 128/62 03/14/2024 10:02 AM CDT Pulse 78 03/14/2024 10:00 AM CDT Temperature 36.3 C (97.4 F) 03/14/2024 10:00 AM CDT Respiratory Rate 15 03/14/2024 10:00 AM CDT Oxygen Saturation 92% 03/14/2024 10:00 AM CDT Inhaled Oxygen Concentration - - Weight 60.6 kg (133 lb 9.6 oz) 03/14/2024 10:00 AM CDT Height 157.5 cm (5' 2 ) 02/23/2024 11:35 AM CDT Body Mass Index 24.44 02/23/2024 11:35 AM CDT Plan of Treatment Health Maintenance Due Date Last Done Comments DTAP/TDAP/TD VACCINES (1 - Tdap) 01[birth year]06/1954 ZOSTER VACCINE (1 of 2) 1987 RSV VACCINE (60+ or ) (1 - 1-dose 75+ series) 01/06/2012 INFLUENZA VACCINE (#1) 2024 3, 05/18/2022, 05/18/2021, Additional history exists COVID-19 Vaccine (3 - 2023-2 5 season) 2024 10/07/2020, 09/09/2020 OSTEOPOROSIS SCREENING 02/05/2029 4, 02/06/2024, 01/30/2023, Additional history exists PNEUMOCOCCAL VACCINE 50+ YEARS Completed 01/15/2016 , 04/21/[address] [place] [address] MEDICARE RAILROAD [place] [id number]
--- OUTSIDE RECORDS SUMMARY | 2024-11-26 10:27 | XMS_ITS | Encounter Summary ---
Author Organization [facility] Address [address] [place] [address] Phone Care Team Providers Care Die Storage Clerk Name Role Phone Jorge A Colindres MD Primary Care Provider [phone] Bambi Santos MD Unavailable [phone] Walt Castellanos MD Unavailable [phone] Cristiane Mireles MD Unavailable [phone] Delilah Zavala MD Unavailable [phone] Sol Hannah LPN Unavailable [phone] Dariela Edward DO Unavailable [phone] Encounter Details Date Type Department Care Team (Late st Contact Info) Description 02/27/2021 Orders Only [facility] [address] [place] [address] Scanning, Provider Social History Tobacco Use Types Packs/Day Years Used Date Smoking Tobacco: Never Smokeless Tobacco: Never Alcohol Use Standard Drinks/Week Comments No 0 (1 standard drink = 0.6 oz pur e alcohol) Social Connection and Isolat ion Panel [NHANES] Answer Date Recorded In a typical week, how many times do you talk on the phone with family, friends, or neighbors? More than three times a week 02/15/2021 How often do you get togethe r with friends or relatives? More than three times a week 02/15/2021 How often do you attend [facility] or judaism services? Never 02/15/2021 Do you belong to any clubs o r organizations such as worship groups, unions, fraternal or athletic groups, or school groups? No 02/15/2021 How often do you attend meet ings of the clubs or organizations you belong to? Never 02/15/2021 Are you , , di vorced, , never , or living with a partner? 02/15/2021 Overall Financial Resource Strain (CARDIA) Answe r Date Recorded How hard is it for you to pa y for the very basics like food, housing, medical care, and heating? Not very hard 02/15/2021 PHQ-2 Answer Date Recorded PHQ-2 Total Score (If total score is 3 or more points, staff should administer the PHQ-9) 1 01/04/2021 Hunger Vital Sign Answer Date Recorded Within the past 12 months, y ou worried that your food would run out before you got the money to buy more. Never true 02/16/20 21 Within the past 12 months, t he food you bought just didn't last and you didn't have money to get more. Never true 02/15/2021 PRAPARE - Transportation Answer Date Re corded In the past 12 months, has l ack of transportation kept you from medical appointments or from getting medications? No 01/28 In the past 12 months, has l ack of transportation kept you from meetings, work, or from getting things needed for daily living? No 02/15/2021 Housing Stability Vital Sign Answer Stu e Recorded In the last 12 months, was t here a time when you were not able to pay the mortgage or rent on time? No 02/15/2021 Number of Places Lived in the Last Year Not on f ile 02/15/2021 In the last 12 months, was t here a time when you did not have a steady place to sleep or slept in a nursing home (including now)? No 02/15/2021 Comments No Sex and Gender Information Value Date Recorded Sex Assigned at Not on file Legal Sex Female 6:07 PM INSPECTOR PUBLICATIONS Gender Identity Not on file Sexual Orientation Not on file documented as of this encounter Plan of Treatment Not on file documented as of this encounter Procedures Procedure Name Priority Date/Time Associated Diagnosis Comments SCAN - LABS 02/27/2021 documented in this encounter Results * SCAN - LABS (02/27/2021) us Provider Scanning Final Result documented in this encounter Visit Diagnoses Not on filedocumented in this encounter Additional Health Concerns Infection Onset Date Last Indicated Resolved Time COVID: Suspected 06/11/2021 06/11/2021 06/11/2021 4:11 PM INSPECTOR PUBLICATIONS COVID: Suspected 06/14/2021 06/14/2021 06/14/2021 4:59 PM INSPECTOR PUBLICATIONS RSV, droplet 06/14/2021 06/14/2021 06/21/2021 3:05 AM INSPECTOR PUBLICATIONS COVID: Suspected 03/22/2022 03/22/2022 03/22/2022 1:59 PM CDT COVID19 03/22/2022 03/22/2022 04/01/2022 3:05 AM CDT COVID: Recovered Comment:Added based on recent COVID infection. 04/01/2022 04/05/2022 07/30/2022 3:[address] documented as of this encounter Care Teams Die Storage Clerk Relationship Specialty Start Date End Date Jorge A Colindres MD [address] [place] [address] PCP - General 10/28/16 Bambi Santos MD [address] [place] [address] Consulting Physician Cardiology 03/23/18 Walt Castellanos MD [address] [place] [address] Surgeon Ophthalmology 08/21/19 Cristiane Mireles MD [address] [address] Consulting Physician Critical Care Med 06/18/20 [place] [address] [address] [place] [address] Consulting Physician Gastroenterology 02/19/21 Sol Hannah, JOSE [address] [place] [address] [address] [place] [address] Business Office Coordinator 05/10/23 06/15/23 Dariela Edward DO [address] [place] [address] DR LJ Gupta [facility] [address] [place] [address] Consulting Physician Otolaryngology 06/20/23 documented as of this encounter
--- OUTSIDE RECORDS SUMMARY | 2024-11-26 10:27 | XMS_ITS | Encounter Summary ---
Author Organization [facility] Healthcare Address [address] [place] [address] Care Team Providers Care Bleaching Supervisor Name Role Phone JensJorge A MD Primary Care Provider [phone] Bambi Santos MD Unavailable [phone] Walt Castellanos MD Unavailable [phone] Cristiane Mireles MD Unavailable [phone] Delilah Zavala MD Unavailable [phone] Sol Hannah LPN Unavailable [phone] Dariela Edward DO Unavailable [phone] Encounter Details Date Type Department Care Team (Late st Contact Info) Description 01/12/2021 [facility] [address] [place] [address] Vandana Queen, RT Social History Tobacco Use Types Packs/Day Years Used Date Smoking Tobacco: Never Smokeless Tobacco: Never Alcohol Use Standard Drinks/Week Comments No 0 (1 standard drink = 0.6 oz pur e alcohol) PHQ-2 Answer Date Recorded PHQ-2 Total Score (If total score is 3 or more points, staff should administer the PHQ-9) 1 01/04/2021 Comments No Sex and Gender Information Value Date Recorded Sex Assigned at Not on file Legal Sex Female 6:07 PM JAVA DEVELOPER ANALYST Gender Identity Not on file Sexual Orientation Not on file documented as of this encounter Plan of Treatment Not on file documented as of this encounter Visit Diagnoses Not on filedocumented in this encounter Additional Health Concerns Infection Onset Date Last Indicated Resolved Time COVID: Suspected 06/11/2021 06/11/2021 06/11/2021 4:11 PM JAVA DEVELOPER ANALYST COVID: Suspected 06/14/2021 06/14/2021 06/14/2021 4:59 PM JAVA DEVELOPER ANALYST RSV, droplet 06/14/2021 06/14/2021 06/21/2021 3:05 AM JAVA DEVELOPER ANALYST COVID: Suspected 03/22/2022 03/22/2022 03/22/2022 1:59 PM CDT COVID19 03/22/2022 03/22/2022 04/01/2022 3:05 AM CDT COVID: Recovered Comment:Added based on recent COVID infection. 04/01/2022 04/05/2022 07/30/2022 3:[address] documented as of this encounter Care Teams Bleaching Supervisor Relationship Specialty Start Date End Date Jorge A Coilndres MD [address] [place] [address] PCP - General 10/28/16 Bambi Santos MD [address] [place] [address] Consulting Physician Cardiology 03/23/18 Walt Castellanos MD [address] [place] [address] Surgeon Ophthalmology 08/21/19 Cristiane Mireles MD [address] [facility] [address] [place] [address] Consulting Physician Critical Care Med 06/18/20 [place] [address] [address] [facility] [address] [address] Consulting Physician Gastroenterology 02/19/21 Sol Hannah, LOUNGE CAR ATTENDANT [address] [facility] [address] [place] [address] Lpn Or Medical Assistant 05/10/23 06/15/23 Dariela Edward DO [address] [place] [address] DR LJ [address] [place] [address] Consulting Physician Otolaryngology 06/20/23 documented as of this encounter
--- OUTSIDE RECORDS SUMMARY | 2024-11-26 10:27 | XMS_ITS | Encounter Summary ---
Author Organization [facility] Address [address] [place] [address] Phone Care Team Providers Care Odd Ticket Clerk Name Role Phone Jorge A Colindres MD Primary Care Provider [phone] Bambi Santos MD Unavailable Walt Castellanos MD Unavailable [phone] Cristiane Mireles MD Unavailable [phone] Delilah Zavala MD Unavailable [phone] Sol Hannah LPN Unavailable [phone] Dariela Edward DO Unavailable [phone] Encounter Details Date Type Department Care Team (Late st Contact Info) Description 03/30/2022 Orders Only [facility] [address] [place] [address] Scanning, Provider Social History Tobacco [...] week 02/15/2021 How often do you attend [facility] or taoist services? Never 02/15/2021 Do you belong to any clubs o r organizations such as mandaeism groups, unions, fraternal or athletic groups, or [...] points, staff should administer the PHQ-9) 1 07/06/2021 Hunger Vital Sign Answer Date Recorded Within [...] in a long term (including now)? No 02/15/2021 Comments No Sex and Gender Information Value Date Recorded Sex Assigned at Not on file Legal Sex Female 6:07 PM DEPARTMENT SECRETARY Gender Identity Not on file Sexual Orientation Not on file documented as of this encounter Plan of Treatment Not on file documented as of this encounter Procedures Procedure Name Priority Date/Time Associated Diagnosis Comments CARDIOLOGY DOCUMENT SCAN 03/30/2022 documented in this encounter Results * CARDIOLOGY DOCUMENT SCAN (03/30/2022) Anatomical Region Laterality Modality Other us Provider Scanning CV CARDIAC SERVICES PROCEDURES Final Result documented in this encounter Visit Diagnoses Not on filedocumented in this encounter Additional Health Concerns Infection Onset Date Last Indicated Resolved Time COVID19 03/22/2022 03/22/2022 04/01/2022 3:05 AM CDT COVID: Recovered Comment:Added based on recent COVID infection. 04/01/2022 04/05/2022 07/30/2022 3:[address] documented as of this encounter Care Teams Odd Ticket Clerk Relationship Specialty Start Date End Date Jorge A Colindres MD [address] [place] [address] PCP - General 10/28/16 Bambi Santos MD [address] [place] [address] Consulting Physician Cardiology 03/23/18 Walt Castellanos MD [address] [place] [address] Surgeon Ophthalmology 08/21/19 Cristiane Mireles MD [address] [facility] [address] [place] [address] Consulting Physician Critical Care Med 06/18/20 [place] [address] [address] [facility] [address] [place] [address] Consulting Physician Gastroenterology 02/19/21 Sol Hannah, MANAGER MUTUAL FUND [address] [place] [address] [address] [place] [address] Tourist Information Officer 05/10/23 06/15/23 Dariela Edward DO [address] [facility] [place] [address] Consulting Physician Otolaryngology 06/20/23 documented as of this encounter
== END 2024-11-26 09:33 | disposition home or self-care (01) ==
PROVIDERS: PCP Internal Medicine Infectious Disease; Visit Provider Internal Medicine Cardiovascular Disease
DX: I71.40 Abdominal aortic aneurysm, without rupture, unspecified (principal); I70.0 Atherosclerosis of aorta
CPT/HCPCS: 76775

== ENCOUNTER 2024-12-14 10:40 | Outpatient (CLI) | payer MEDICARE, OTHER, SELFPAY ==
--- OUTSIDE RECORDS SUMMARY | 2024-12-14 10:43 | XMS_ITS | Encounter Summary ---
Author Organization [facility] Address [address] [place] [address] Phone Care Team Providers Care Muck Operator Name Role Phone Jorge A Colindres MD Primary Care Provider [phone] Bambi Santos MD Unavailable [phone] Walt Castellanos MD Unavailable [phone] Cristiane Mireles MD Unavailable [phone] Delilah Zavala MD Unavailable [phone] Sol Hannah LPN Unavailable [phone] Dariela Edward DO Unavailable [phone] Encounter Details Date Type Department Care Team (Late st Contact Info) Description 03/30/2022 Orders Only [facility] [address] [place] [address] Scanning, Provider Social History Tobacco [...] week 02/15/2021 How often do you attend [facility] or christian services? Never 02/15/2021 Do you belong to any clubs o r organizations such as islam groups, unions, fraternal or athletic groups, or [...] place to sleep or slept in a jail (including now)? No 02/15/2021 Comments No Sex and Gender Information Value Date Recorded Sex Assigned at Not on file Legal Sex Female 6:07 PM NEW CAR GET READY MECHANIC Gender Identity Not on file Sexual Orientation [...] documented as of this encounter Care Teams Muck Operator Relationship Specialty Start Date End Date Jorge A Colindres MD [address] [place] [address] PCP - General 10/28/16 Bambi Santos MD [address] [place] [address] Consulting Physician Cardiology 03/23/18 Walt Castellanos MD [address] [place] [address] Surgeon Ophthalmology 08/21/19 Cristiane Mireles MD [address] [facility] [address] [place] [address] Consulting Physician Critical Care Med 06/18/20 [place] [address] [address] [facility] [address] [place] [address] Consulting Physician Gastroenterology 02/19/21 Sol Hannah, RATE CLERK PASSENGER [address] [place] [address] [address] [place] [address] Mattress Finisher 05/10/23 06/15/23 Dariela Edward DO [address] [facility] [place] [place] [address] Consulting Physician Otolaryngology 06/20/23 documented as of this encounter
--- OUTSIDE RECORDS SUMMARY | 2024-12-14 10:43 | XMS_ITS | Encounter Summary ---
Author Organization [facility] Healthcare Address [address] [place] [address] Care Team Providers Care Utility Agent Name Role Phone JensJorge A MD Primary Care Provider [phone] Bambi Santos MD Unavailable [phone] Walt Castellanos MD Unavailable [phone] Cristiane Mireles MD Unavailable [phone] Delilah Zavala MD Unavailable [phone] Sol Hannah LPN Unavailable [phone] Dariela Edward DO Unavailable Encounter Details Date Type Department Care Team (Late st Contact Info) Description 01/12/2021 [facility] [address] [place] [id number] Vandana Queen, RT Social History Tobacco Use [...] on file Legal Sex Female 6:07 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 Gender Identity Not on file Sexual Orientation Not on file documented as of this encounter Plan of Treatment Not on file documented as of this encounter Visit Diagnoses Not on filedocumented in this encounter Additional Health Concerns Infection Onset Date Last Indicated Resolved Time COVID: Suspected 06/11/2021 06/11/2021 06/11/2021 4:11 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 TEACHER COVID: Suspected 06/14/2021 06/14/2021 06/14/2021 4:59 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 TEACHER RSV, droplet 06/14/2021 06/14/2021 06/21/2021 3:05 AM INTERVENTION TEACHER COVID: Suspected 03/22/2022 03/22/2022 03/22/2022 1:59 PM CDT COVID19 03/22/2022 03/22/2022 04/01/2022 3:05 AM CDT COVID: Recovered Comment:Added based on recent COVID infection. 04/01/2022 04/05/2022 07/30/2022 3:[address] documented as of this encounter Care Teams Utility Agent Relationship Specialty Start Date End Date Jorge A Colindres MD [address] [place] [address] PCP - General 10/28/16 Bambi Santos MD [address] [place] [address] Consulting Physician Cardiology 03/23/18 Walt Castellanos MD [address] [place] [address] Surgeon Ophthalmology 08/21/19 Cristiane Mireles MD [address] [facility] [address] [place] [address] Consulting Physician Critical Care Med 06/18/20 [place] [address] [address] [facility] [address], [place] [address] Consulting Physician Gastroenterology 02/19/21 Sol Hannah, FLY RAISER LOCKSTITCH [address] [place] [address] Ore Puncher 05/10/23 06/15/23 Dariela Edward DO [address] [place] [address] DR [address] [place] [address] Consulting Physician Otolaryngology 06/20/23 documented as of this encounter
--- OUTSIDE RECORDS SUMMARY | 2024-12-14 10:43 | XMS_ITS | Clinical Summary ---
Author Organization [facility] Address [address] [place] [address] Care Team Providers Care Boiler Control Room Operator Name Role Phone Denzel Beckford MD Unavailable [phone] Jorge A Colindres MD Primary Care Provider [phone] Source Comments [facility],non-owned Affiliates and Associated Physician Practices is amultiple site organization consisting of ambulatory clinics and hospital sitesin [place], [place], [place] and [place]. This disclosure is being madepursuant to the Care Everywhere program and may not contain all information available regarding this patient. Last updated 18.[facility] Allergies Active Allergy Reactions Criticality Noted Date [...] (one) tablet by mouth once daily 4 Active OtherIndicatio ns:eye drops bilat eyes once daily Reasons: eye drops bilat eyes Active mirtazapine (Remeron) 15 MG tablet Take 1 (one) tablet by mouth at bedtime Active vitamin D, ergocalciferol , (Drisdol) 1.25 MG (34332 UT) capsule Take 1 (one) capsule by [...] care, and heating? Not very hard 04/18/2024 [facility] - Occupational Stress [...] in a long term (including now)? No 04/18/2024 Comments Unknown Sex and Gender Information Value Date Recorded Sex Assigned at Not on file Legal Sex Female 9:38 AM PRINCIPAL ENGINEER Gender Identity Not on file Sexual [...] to complete [place] [place] [address] MEDICARE [facility] MEDICARE Advance Directives Documents on File Type Date Recorded Patient Product Owner Expl anation Adv Directive/Living Will/POA 03/09/2012 2:35 PM * Full Code (Latest Code Status on File) Date Activated Date Inactivated Comments 04/18/2024 3:08 PM 04/20/2024 6:45 PM * FULL RESUSCITATION Date Activated Date Inactivated Comments 03/05/2012 2:02 PM 03/08/2012 1:35 PM * FULL RESUSCITATION Date Activated Date Inactivated Comments 06/29/2011 1:53 PM 07/01/2011 10:25 PM Care Teams Boiler Control Room Operator Relationship Specialty Start Date End Date Jorge A Colindres MD [address] [place] [address] PCP - General Internal Medicine 03/08/24 [place] [address] [address] [facility] [address] [place] [address] Orthopedic Surgery 02/24/12
--- OUTSIDE RECORDS SUMMARY | 2024-12-14 10:43 | XMS_ITS | Clinical Summary ---
Author Organization [facility] Virtual Care Address [address] [place] [address] Phone Care Team Providers Care Cellophane Bag Machine Operator Name Role Phone Jorge A Colindres MD Primary Care Provider [phone] Bambi Santos MD Unavailable [phone] Walt Castellanos MD Unavailable [phone] Cristiane Mireles MD Unavailable [phone] Delilah Zavala MD Unavailable [phone] Dariela Edward DO Unavailable [phone] Allergies Active Allergy Reactions Criticality Noted Date Comments Codeine Unknown Erythromycin Rash Medium 06/21/2011 Propoxyphene Unknown Quinapril Unknown Sulfa (Sulfonamide Antibiotics) Rash Medium Medications aspirin 81 mg tabletIndicatio ns:Myocardial Reinfarction Prevention Take 1 tablet (81 mg total) by mouth every morning Active cholecalciferol , vitamin D3, (VITAMIN D3 ORAL) Take 1,000 Int'l Units by mouth every morning Active cyanocobalamin (vitamin B-12) 1,000 mcg tabletIndicatio ns:on Mon, Take 1 tablet (1,000 mcg total) by mouth 2 (two) times a week 04/17/20 Active Additional Information Patient not taking.Reported on 11/11/2024 acetaminophen (TYLENOL) 325 mg tabletIndicatio ns:Pain Take 2 tablets (650 mg total) by mouth every 6 (six) hours as needed for pain Active amLODIPine (NORVASC) 5 mg tablet Take 1 tablet (5 mg total) by mouth daily 30 tablet 11 12/01/19 24 Active ALPRAZolam (XANAX) 0.25 mg tablet Take 1 tablet (0.25 mg total) by mouth nightly as needed for anxiety 30 tablet 04/04/20 24 Active ergocalciferol (VITAMIN D) 50,000 unit capsule Take 1 capsule (50,000 Units total) by mouth once a week 04/27/20 24 Active losartan (COZAAR) 100 mg tablet HALF PILL A DAY 04/26/20 24 Active hydrALAZINE (APRESOLINE) 25 mg tabletIndicatio ns:Hypertension , essential Take 1 po bid 180 tablet 1 06/26/20 24 Active sertraline (ZOLOFT) 50 mg tablet TAKE 2 TABLETS(100 MG) BY MOUTH DAILY 180 tablet 1 07/26/20 24 Active denosumab (PROLIA) 60 mg/mL syringeIndicati ons:postmenopau jorgito osteoporosis and high fracture risk Inject 1 mL (60 mg total) under the skin once for 1 dose 1 mL 1 08/09/19 25 Active mirtazapine (REMERON) 15 mg tabletIndicatio ns:Other depression TAKE 1 TABLET(15 MG) BY MOUTH EVERY NIGHT 30 tablet 1 12/10/19 25 Active hydrALAZINE (APRESOLINE) 10 mg tabletIndicatio ns:hypertension Take 1 tablet by mouth 3 (three) times a day patient taking 25mg 3x daily Discontinued(D ose adjustment) mirtazapine (REMERON) 15 mg tabletIndicatio ns:Other depression TAKE 1 TABLET(15 MG) BY MOUTH EVERY NIGHT 30 tablet 4 07/29/20 24 2024 Discontinued Active Problems Problem Noted Date Diagnosed Date [...] 04/12/2024 Assessment & Plan (08/07/2024 12:56 PM TIMEKEEPER): CHRONIC AND STABLE REMERON HS FOR APPETITE [...] AORTIC STENOSIS F/U DR [facility] HYPERCALCEMIA WITH AN ELEVATED INTACT PTH, NL [...] 06/15/2022 Assessment & Plan (06/15/2022 9:44 AM TIMEKEEPER): Chronic problem Please refer to note for [...] patient prefers 4-wheel scooter Orders for Fadumo Rdz to arrange FOR SCOOTER: Follow up with [...] (08/09/2019): Added automatically from request for surgery [id number] 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 Lungs clear. 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 Advised this is likely from anxiety and poor appetite. See plan for anxiety/depression above. Non-rheumatic mitral regurgitation 05/08/2019 Caregiver role strain 02/12/2019 Assessment & Plan (06/15/2022 9:57 AM TIMEKEEPER): Chronic problem Patient's has dementia - patient [...] patient prefers 4-wheel scooter Orders for Fadumo Bazan Kendell to arrange FOR HELP IN HOME: Call office at the end of the week or the beginning of next week if haven't heard from home health forensic social worker - will have office staff reach out [...] Hypercholesterolemia Assessment & Plan (08/07/2024 12:55 PM TIMEKEEPER): FLP AND LDL WERE REVIEWED GOAL LDL [...] 07/27/2010 Assessment & Plan (08/07/2024 12:55 PM TIMEKEEPER): GOAL BP IS 130/80 OR UNDER LOW [...] 05/26/2023 Assessment & Plan (06/15/2022 9:49 AM TIMEKEEPER): Acute problem, patient reports only one occurrence [...] patient prefers 4-wheel scooter Orders for Fadumo Rdz to arrange FOR HEART RATE: Continue monitoring heart rate - report readings <50 or >100 Continue monitoring blood pressure - report readings <90/60 or >140/90 Continue monitoring symptoms - report symptoms of chest pain, shortness of breath, dizziness, weakness/fatigue to the office or strategic partnership specialist Follow up with cardiology as recommended Follow up with PT as recommended and able Follow up with Dr. Colindres as scheduled or sooner if necessary Rectal bleeding 02/14/2021 05/26/2023 Encounters Date Type Department Care Team Description 12/11/2024 9:50 AM CDT Lab [facility] [address] [place] [id number] Primary hyperparathyroidism ; Mixed hyperlipidemia; Hypertension, essential 11/29/2024 Results Follow-Up [facility] Medical Group Cardiology [address] [facility] [address] [address] Bisi Douglass MD 11/28/2024 Orders Only [facility] Health Information Management [address] [place] [address] Scanning, Provider 11/26/2024 Orders Only [facility] Health Information Management [address] [place] [address] Bisi Douglass MD 11/11/2024 11:00 AM CDT Office Visit [facility] Medical [facility] Cardiology [address] [facility] [address] [place] [phone] Bisi Douglass MD Abdominal aortic aneurysm (AAA) [...] artery disease Coronary artery disease Mother Martina nary artery disease, premature; Cause of [...] materials from doctor or pharmacy Never 07/10/2023 [facility] Utilities Answer Date Recorded In the past 12 months has th e electric, gas, oil, or water company threatened to shut off services in your [...] often do you attend chur ch or scientology services? Never 06/16/2023 Do you belong to any clubs o r organizations such as orthodoxy groups, unions, fraternal or athletic groups, or [...] place to sleep or slept in a snf (including now)? No 06/16/2023 Personal Safety Answer [...] on file Legal Sex Female 6:07 PM TIMEKEEPER Gender Identity Not on file Sexual Orientation Not on file Obstetrics History Last Filed Vital Signs Vital Sign Reading Time Taken Comments Blood Pressure 120/58 11/11/2024 11:01 AM CDT Pulse 64 11/11/2024 11:01 AM CDT Temperature 36.4 C (97.5 F) 08/21/2024 12:04 PM TIMEKEEPER Respiratory Rate 18 08/21/2024 12:04 PM TIMEKEEPER Oxygen Saturation 97% 11/11/2024 11:01 AM CDT [...] exists Pneumococcal vaccine 65+ Completed 01/15/2016, 04/01 Osteoporosis Screening-Bone Density Scan Discontinued 02/06/2024, 01/30/2023, 01/13/2021, Additional history exists Influenza Vaccine Completed 04/12/2024, , 05/11/2023, Additional history exists Procedures Procedure Name Priority Date/Time Associated Diagnosis Comments EGFR Routine 12/11/2024 9:48 AM CDT Hypertension, essential DIFFERENTIAL AUTO Routine 12/11/2024 9:48 AM CDT Hypertension, essential CBC WITH AUTO DIFFERENTIAL Routine 12/11/2024 9:48 AM CDT Hypertension, essential COMPREHENSIVE METABOLIC PANEL Routine 12/11/2024 9:48 AM CDT Hypertension, essential LIPID PANEL Routine 12/11/2024 9:48 AM CDT Mixed hyperlipidemia PTH Routine 12/11/2024 9:48 AM CDT Primary hyperparathyroidism SCAN - RADIOLOGY/IMAGING 11/28/2024 9:31 AM CDT SCAN - RADIOLOGY/IMAGING 11/26/2024 DEXA AXIAL SKELETON BONE DENSITY 1 OR MORE SITES Schedule Routine, Read Routine (OP Routine) 02/06/2024 10:28 AM CDT Osteoporosis, unspecified osteoporosis type, unspecified pathological fracture presence from Last 3 Months or Most Recently Relevant to Health Maintenance Results * (ABNORMAL) eGFR (12/11/2024 9:48 AM CDT) Pathologist [facility] eGFR 31(L) >=60 mL/min/1. 73 m2 Comment: Interpretive Data Reference Interval Normal >/= 90 mL/min/1.73m2 Mildly decreased* 60 - 89 mL/min/1.73m2 Mildly to moderately decreased 45 - 59 mL/min/1.73m2 Moderately to severely decreased 30 - 44 mL/min/1.73m2 Severely decreased 15 - 29 mL/min/1.73m2 Kidney Failure < 15 mL/min/1.73m2 *Relative to young adult level Estimated glomerular filtration rate is determined by the 2020 CKD-EPI equation recommended by the National Kidney Foundation (A Unifying Approach to GFR Estimation: Recommendations of the NKF-ASK Task Force on Reassessing the Inclusion of Race in Diagnosing Kidney Disease, JASN 2020). The CKD-EPI equation should not be used for patients with unstable renal function and has not been validated in children and those over 70. Current interpretive data was last reviewed 2021. Testing performed by: [address] [address] Blood 12/11/2024 9:48 AM CDT 12/11/2024 7:58 PM CDT Jorge A Colindres MD LAB BLOOD ORDERABLES Final Result [address] [place] [address] * (ABNORMAL) Differential, auto (12/11/2024 9:48 AM CDT) [facility] Neutrophil abs 4.96 1.50 - 6.50 K/cumm Comment:Testing performed by : [address] [address] Imm gran abs 0.02 0.00 - 0.10 K/cumm HANY Comment:Testing performed by : [address] [address] Lymphocyte abs 1.56 0.80 - 3.30 K/cumm HANY Comment:Testing performed by : [address] [address] Monocyte abs 0.64 0.20 - 0.80 K/cumm C[facility]ER CH Comment:Testing performed by : [facility], [address] [place] [address]., [address] Eosinophil abs 0.57(H) 0.00 - 0.50 K/cumm CERN[facility] CH Comment:Testing performed by : [facility], [address] [place] [address]., [address] Basophil abs 0.08 0.00 - 0.10 K/cumm CERN[facility] CH Comment:Testing performed by : [facility], [address] [place] [address]., [address] Neutrophil pct 63.3 % [facility] CH Comment: Interpretive Data Percent cell count reference ranges are not reported, since discordance with absolute values may lead to misinterpretation of CBC data. Current Interpretive Data was last revised on 2017. Testing performed by: [address] [address] Imm gran pct 0.3 % [facility] Comment: Interpretive Data Percent cell count reference ranges are not reported, since discordance with absolute values may lead to misinterpretation of CBC data. Current Interpretive Data was last revised on 2017. Testing performed by: [address] [address] Lymphocyte pct 19.9 % [facility] Comment: Interpretive Data Percent cell count reference ranges are not reported, since discordance with absolute values may lead to misinterpretation of CBC data. Current Interpretive Data was last revised on 2017. Testing performed by: [address] [address] Monocyte pct 8.2 % [facility] Comment: Interpretive Data Percent cell count reference ranges are not reported, since discordance with absolute values may lead to misinterpretation of CBC data. Current Interpretive Data was last revised on 2017. Testing performed by: [address] [address] Eosinophil pct 7.3 % [facility] CH Comment: Interpretive Data Percent cell count reference ranges are not reported, since discordance with absolute values may lead to misinterpretation of CBC data. Current Interpretive Data was last revised on 2017. Testing performed by: [address], [address] Basophil pct 1.0 % [facility] Comment: Interpretive Data Percent cell count reference ranges are not reported, since discordance with absolute values may lead to misinterpretation of CBC data. Current Interpretive Data was last revised on 2017. Testing performed by: [address] [address] Blood 12/11/2024 9:48 AM CDT 12/11/2024 7:50 PM CDT us Jorge A Colindres MD LAB BLOOD ORDERABLES Final Result [address] Department [place] [address] * (ABNORMAL) CBC with auto differential (12/11/2024 9:48 AM CDT) WBC 7.83 3.80 - 9.90 K/cumm Comment:Testing performed by : [address] [address] Hgb 11.2(L) 11.9 - 15.5 g/dL [facility] Comment:Testing performed by : [address], [address] Hct 37.4 35.6 - 45.5 % [facility] Comment:Testing performed by : [address] [address] Plt 188 150 - 400 K/cumm [facility] Comment:Testing performed by : [address] [address] MPV 11.6 9.1 - 12.3 fL CERNER Comment:Testing performed by : [address], [address] RBC 3.85(L) 3.90 - 5.20 M/cumm CERNER Comment:Testing performed by : [address], [address] MCV 97.1(H) 81.3 - 96.4 fL CERNER Comment:Testing performed by : [address], [address] MCH 29.1 27.1 - 33.3 pg HANY Comment:Testing performed by : [facility], [address] [place] [address]., [address] MCHC 29.9(L) 32.3 - 35.7 g/dL [facility] Comment:Testing performed by : [facility], [address] [place] [address], [address] RDW CV 14.6 11.1 - 14.9 % HANY Comment:Testing performed by : [facility], [address] [place] [address], [address] RDW SD 52.9(H) 35.7 - 48.1 fL [facility] Comment:Testing performed by : [facility], [address] [place] [address], [address] NRBC abs 0.00 0.00 - 0.01 K/cumm [facility] Comment:Testing performed by : [facility], [address] [place] [address], [address] Blood 12/11/2024 9:48 AM CDT 12/11/2024 7:50 PM CDT Jorge A Colindres MD LAB BLOOD ORDERABLES Final Result Performing Organization Address City/[facility]/ZIP Co de Phone Number HANY [address] [address] [employer] [place] [address] * (ABNORMAL) PTH (12/11/2024 9:48 AM CDT) Pathologist [facility] PTH 98(H) 15 - 65 pg/mL Comment:Testing performed by : [facility], [address] [place] [address], [address] Blood 12/11/2024 9:48 AM CDT 12/11/2024 7:50 PM CDT Jorge A Colindres MD LAB BLOOD ORDERABLES Final Result [facility] [address] [place] [address] * Lipid panel (12/11/2024 9:48 AM CDT) Cholesterol 191 30 - 199 mg/dL Comment: Interpretive Data Ages < or = 19 years Acceptable: <170 mg/dL Borderline high: 170-199 mg/dL High: >or= 200 mg/dL Ages > or = 20 years Desirable: <200 mg/dL Borderline high: 200-239 mg/dL High: >or= 240 mg/dL Literature References: 1. Expert Panel on Integrated Guidelines for Cardiovascular Health and Risk Reduction in Children and Adolescents. Pediatrics 2011;128:S213 2. NCEP Expert Panel. Circulation 2004;110:227 Current Interpretive Data was last revised on 2018. Testing performed by: [facility], [address] [place] [address]., [address] Triglycerides 109 <=149 mg/dL [facility] REES Comment: Interpretive Data Ages < or = 9 years Acceptable: <75 mg/dL Borderline high: 75-99 mg/dL High: >or= 100 mg/dL Ages 10 to 20 years Acceptable: <90 mg/dL Borderline high: 90-129 mg/dL High: >or= 130 mg/dL Ages > or = 20 years Desirable: <150 mg/dL Borderline high: 150-199 mg/dL High: 200-499 mg/dL Very high: >or= 499 mg/dL Literature References: 1. Expert Panel on Integrated Guidelines for Cardiovascular Health and Risk Reduction in Children and Adolescents. Pediatrics 2011;128:S213 2. NCEP Expert Panel. Circulation 2004;110:227 Current Interpretive Data was last revised on 2018. Testing performed by: Vinicius [id number]|2024-12-14 10:43:00|2024-12-14 10:43:00|XMS_ITS|BKG DAEMON|External Medical Summaries|[id number]|" Encounter Summary Created on: December 14, 2024 Fadumo Rdz : 1935 Sex: Female Author Organization [facility] Healthcare Address [address] [place] [address] Care Team Providers Care Cellophane Bag Machine Operator Name Role Phone Jorge A Colindres Steve DEAL Primary Care Provider [phone] Bambi Santos MD Unavailable [phone] Walt Castellanos MD Unavailable [phone] Cristiane Mireles MD Unavailable [phone] Delilah Zavala MD Unavailable [phone] Dariela Edward DO Unavailable [phone] Encounter Details Date Type Department Care Team (Late st Contact Info) Description 11/29/2024 Results Follow-Up [facility] Medical Group Cardiology [address] [phone] Bisi Douglass MD [address] [address] Social History Tobacco Use Types Packs/Day Years [...] materials from doctor or pharmacy Never 07/10/2023 [facility] Utilities Answer Date Recorded In the past 12 months has e electric, gas, oil, or water company threatened to shut off services in your [...] often do you attend chur ch or scientology services? Never 06/16/2023 Do you belong to any clubs o r organizations such as orthodoxy groups, unions, fraternal or athletic groups, or [...] place to sleep or slept in a snf (including now)? No 06/16/2023 Personal Safety Answer [...] on file Legal Sex Female 6:07 PM TIMEKEEPER Gender Identity Not on file Sexual Orientation Not on file documented as of this encounter Plan of Treatment Not on file documented as of this encounter Visit Diagnoses Not on filedocumented in this encounter Care Teams Cellophane Bag Machine Operator Relationship Specialty Start Date End Date Jorge A Colindres MD [address] [place] [address] PCP - General 10/28/16 Bambi Santos MD [address] [place] [address] Consulting Physician Cardiology 03/23/18 Walt Castellanos MD [address] [place] [address] Surgeon Ophthalmology 08/21/19 Cristiane Mireles MD [address] [facility] [address] [place] [address] Consulting Physician Critical Care Med 06/18/20 [place] [address] [facility] [address] [place] [address] Consulting Physician Gastroenterology 02/19/21 Dariela Edward DO [address] [facility] [address] [address] [address] LJ Gupta [facility] [address] [place] [address] Consulting Physician Otolaryngology 06/20/23 documented as of this encounter "
--- OUTSIDE RECORDS SUMMARY | 2024-12-14 10:43 | XMS_ITS | Referral Summary ---
Author Organization [facility] Virtual Care Address [facility] [place] [address] Phone Care Team Providers Care Human Resources Safety Manager Name Role Phone Jorge A Colindres MD Primary Care Provider [phone] Bambi Santos MD Unavailable [phone] Walt Castellanos MD Unavailable [phone] Cristiane Mireles MD Unavailable [phone] Delilah Zavala MD Unavailable [phone] Dariela Edward DO Unavailable [phone] Encounters Date Type Department Care Team Description 12/11/2024 9:50 AM CDT Lab [facility] Diag Img & OP Lab 1 [facility] [address] [place] [phone] Primary hyperparathyroidism ; Mixed hyperlipidemia; Hypertension, essential 11/29/2024 Results Follow-Up [facility] [address] [phone] Bisi Douglass MD 11/28/2024 Orders Only [facility] [address] [place] [address] Yessenia, Provider 11/26/2024 Orders Only [facility] [address] [place] [address] Bisi Douglass MD 11/11/2024 11:00 AM CDT Office Visit [facility] [address] [place] [address] Bisi Douglass MD Abdominal aortic [...] cyanocobalamin (vitamin B-12) 1,000 mcg tabletIndicatio ns:on Take 1 tablet (1,000 mcg total) by mouth 2 (two) times a week 04/17/20 23 Active Additional Information Patient not taking.Reported on [...] 04/12/2024 Assessment & Plan (08/07/2024 12:56 PM SHEETMETAL WORKER): CHRONIC AND STABLE REMERON HS FOR APPETITE [...] AORTIC STENOSIS F/U [facility] [place] HYPERCALCEMIA WITH AN ELEVATED INTACT PTH, NL [...] 06/15/2022 Assessment & Plan (06/15/2022 9:44 AM SHEETMETAL WORKER): Chronic problem Please refer to note for [...] (08/09/2019): Added automatically from request for surgery [id number] 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 Lungs clear. 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 Advised this is likely from anxiety and poor appetite. See plan for anxiety/depression above. Non-rheumatic mitral regurgitation 05/08/2019 Caregiver role strain 02/12/2019 Assessment & Plan (06/15/2022 9:57 AM SHEETMETAL WORKER): Chronic problem Patient's has dementia - patient [...] Orders for Fadumo Rdz to arrange FOR HELP IN HOME: Call office at the end of the week or the beginning of next week if haven't heard from home health social services technician - will have office staff reach out [...] Hypercholesterolemia Assessment & Plan (08/07/2024 12:55 PM SHEETMETAL WORKER): FLP AND LDL WERE REVIEWED GOAL LDL [...] 07/27/2010 Assessment & Plan (08/07/2024 12:55 PM SHEETMETAL WORKER): GOAL BP IS 130/80 OR UNDER LOW [...] 05/26/2023 Assessment & Plan (06/15/2022 9:49 AM SHEETMETAL WORKER): Acute problem, patient reports only one occurrence [...] breath, dizziness, weakness/fatigue 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 Never 06/16/2023 Do you belong to any clubs o r organizations such as confucianism groups, unions, fraternal or athletic groups, or [...] place to sleep or slept in a fdc (including now)? No 06/16/2023 Personal Safety Answer [...] on file Legal Sex Female 6:07 PM SHEETMETAL WORKER Gender Identity Not on file Sexual Orientation Not on file Last Filed Vital Signs Vital Sign Reading Time Taken Comments Blood Pressure 120/58 11/11/2024 11:01 AM CDT Pulse 64 11/11/2024 11:01 AM CDT Temperature 36.4 C (97.5 F) 08/21/2024 12:04 PM SHEETMETAL WORKER Respiratory Rate 18 08/21/2024 12:04 PM SHEETMETAL WORKER Oxygen Saturation 97% 11/11/2024 11:01 AM CDT Inhaled Oxygen Concentration - - Weight 62.8 kg (138 lb 6.4 oz) 11/11/2024 11:01 AM CDT Height 172.7 cm (5' 8 ) 11/11/2024 11:01 AM CDT Body Mass Index 21.04 11/11/2024 11:01 AM CDT Plan of Treatment Not on file Procedures Procedure Name Priority Date/Time Associated Diagnosis [...] * (ABNORMAL) eGFR (12/11/2024 9:48 AM CDT) eGFR 31(L) >=60 mL/min/1. 73 m2 Comment: [...] was last reviewed 2021. Testing performed by: [address] [address] Blood 12/11/2024 9:48 AM CDT 12/11/2024 7:58 PM CDT Jorge A Colindres MD LAB BLOOD ORDERABLES Final Result [address] [place] [address] * (ABNORMAL) Differential, auto (12/11/2024 9:48 AM CDT) Neutrophil abs 4.96 1.50 - 6.50 K/cumm Comment:Testing performed by : [address] [address] Imm gran abs 0.02 0.00 - 0.10 K/cumm CERNER Comment:Testing performed by : [address] [address] Lymphocyte abs 1.56 0.80 - 3.30 K/cumm CERNER Comment:Testing performed by : [address] [address] Monocyte abs 0.64 0.20 - 0.80 K/cumm [facility] Comment:Testing performed by : [address] [address] Eosinophil abs 0.57(H) 0.00 - 0.50 K/cumm CERNER Comment:Testing performed by : [address] [address] Basophil abs 0.08 0.00 - 0.10 K/cumm CERNER Comment:Testing performed by : [address] [address] Neutrophil pct 63.3 % CERNER Comment: Interpretive Data Percent cell count reference ranges are not reported, since discordance with absolute values may lead to misinterpretation of CBC data. Current Interpretive Data was last revised on 2017. Testing performed by: [facility], [address] [place] [address]., [address] Imm gran pct 0.3 % CERNER Comment: Interpretive Data Percent cell count reference ranges are not reported, since discordance with absolute values may lead to misinterpretation of CBC data. Current Interpretive Data was last revised on 2017. Testing performed by: [address], [address] Lymphocyte pct 19.9 % CERNER Comment: Interpretive Data Percent cell count reference ranges are not reported, since discordance with absolute values may lead to misinterpretation of CBC data. Current Interpretive Data was last revised on 2017. Testing performed by: [address] [address] Monocyte pct 8.2 % CERNER Comment: Interpretive Data Percent cell count reference ranges are not reported, since discordance with absolute values may lead to misinterpretation of CBC data. Current Interpretive Data was last revised on 2017. Testing performed by: [address] [address] Eosinophil pct 7.3 % CERNER Comment: Interpretive Data Percent cell count reference ranges are not reported, since discordance with absolute values may lead to misinterpretation of CBC data. Current Interpretive Data was last revised on 2017. Testing performed by: [address] [address] Basophil pct 1.0 % CERNER Comment: Interpretive Data Percent cell count reference ranges are not reported, since discordance with absolute values may lead to misinterpretation of CBC data. Current Interpretive Data was last revised on 2017. Testing performed by: [address] [address] Blood 12/11/2024 9:48 AM CDT 12/11/2024 7:50 PM CDT us Jorge A Colindres MD LAB BLOOD ORDERABLES Final Result [facility] [address] [place] [address] * (ABNORMAL) CBC with auto differential (12/11/2024 9:48 AM CDT) [facility] Signature WBC 7.83 3.80 - 9.90 K/cumm Comment:Testing performed by : [address], [address] Hgb 11.2(L) 11.9 - 15.5 g/dL CERNER CH Comment:Testing performed by : [address], [address] Hct 37.4 35.6 - 45.5 % CERNER CH Comment:Testing performed by : [address], [address] Plt 188 150 - 400 K/cumm CERNER CH Comment:Testing performed by : [address], [address] MPV 11.6 9.1 - 12.3 fL CERNER CH Comment:Testing performed by : [address], [address] RBC 3.85(L) 3.90 - 5.20 M/cumm CERNER CH Comment:Testing performed by : [address], [address] MCV 97.1(H) 81.3 - 96.4 fL CERNER CH Comment:Testing performed by : [address], [address] MCH 29.1 27.1 - 33.3 pg CERNER CH Comment:Testing performed by : [address], [address] MCHC 29.9(L) 32.3 - 35.7 g/dL CERNER CH Comment:Testing performed by : [address], [address] RDW CV 14.6 11.1 - 14.9 % CERNER CH Comment:Testing performed by : [address], [address] RDW SD 52.9(H) 35.7 - 48.1 fL CERNER CH Comment:Testing performed by : [address], [address] NRBC abs 0.00 0.00 - 0.01 K/cumm HANY Comment:Testing performed by : [facility], [address] [place] [address]., [address] Blood 12/11/2024 9:48 AM CDT 12/11/2024 7:50 PM CDT Jorge A Colindres MD LAB BLOOD ORDERABLES Final Result Performing Organization Address [facility] Co de Phone Number [facility] [address] [facility] [place] [address] * (ABNORMAL) PTH (12/11/2024 9:48 AM CDT) PTH 98(H) 15 - 65 pg/mL Comment:Testing performed by : [facility], [address] [place] [address]., [address] Blood 12/11/2024 9:48 AM CDT 12/11/2024 7:50 PM CDT Jorge A Colindres MD LAB BLOOD ORDERABLES Final Result Performing Organization Address [facility] Co de Phone Number [place] [phone] [facility] [place] [address] * Lipid panel (12/11/2024 9:48 AM CDT) [...] last revised on 2018. Testing performed by: [facility], [address] [place] [address]., [address] Triglycerides 109 <=149 mg/dL HANY REES Comment: [...] last revised on 2018. Testing performed by: [facility], [address] [place] [address]., [address] HDL 53 >=40 mg/dL HANY Comment: Interpretive Data Ages < or = 19 years Acceptable: >45 mg/dL Borderline low: 40-45 mg/dL Low: <40 mg/dL Ages > or = 20 years Desirable: >or= 60 mg/dL Low: <40 mg/dL Literature References: 1. Expert Panel on Integrated Guidelines for Cardiovascular Health and Risk Reduction in Children and Adolescents. Pediatrics 2011;128:S213 2. NCEP Expert Panel. Circulation 2004;110:227 Current Interpretive Data was last revised on 2018. Testing performed by: [facility], [address] [place] [address]., [address] LDL, calculated 118 <=129 mg/dL HANY Comment: Interpretive Data Ages < or = 19 years Acceptable: <110 mg/dL Borderline high: 110-129 mg/dL High: >or= 130 mg/dL Ages > or = 20 years Optimal: <100 mg/dL Near optimal: 100-129 mg/dL Borderline high: 130-159 mg/dL High: >160 mg/dL Calculated using the Nash LDL-C estimating equation. This equation was implemented on 2024. Prior to this date LDL-C was estimated using the Friedewald equation. Literature References: 1. Expert Panel on Integrated Guidelines for Cardiovascular Health and Risk Reduction in Children and Adolescents. Pediatrics 2011;128:S213 2. NCEP Expert Panel. Circulation 2004;110:227 3. Nash Bazan et al. PAYTON Cardiol. 2020 November 28;5(5):540-548. doi: 10.1001/jamacardio.2020.0013 Current Interpretive Data was last revised on 2024. Testing performed by: [address] [address] Non-HDL Cholesterol 138 mg/dL [facility] REES Comment: Interpretive Data Ages < or = 19 years Acceptable: <120 mg/dL Borderline high: 120-144 mg/dL High: >145 mg/dL Ages > or = 20 years When triglycerides are >200 mg/dL, Non-HDL cholesterol is a secondary target of therapy with treatment goals that are 30 mg/dL greater than the LDL cholesterol target. Literature References: 1. Expert Panel on Integrated Guidelines for Cardiovascular Health and Risk Reduction in Children and Adolescents. Pediatrics 2011;128:S213 2. NCEP Expert Panel. Circulation 2004;110:227 Current Interpretive Data was last revised on 2018. Testing performed by: [address], [address] Chol/HDL ratio 4 HANY Comment:Testing performed by : [address] [address] Blood 12/11/2024 9:4 8 AM CDT 12/11/2024 7:50 PM CDT Jorge A Colindres MD LAB BLOOD ORDERABLES Final Result [facility] [address] [place] [address] * (ABNORMAL) Comprehensive metabolic panel (12/11/2024 9:48 AM CDT) Sodium 142 135 - 145 mmol/L Comment:Testing performed by : [address] [address] Potassium, pl 4.9 3.3 - 4.9 mmol/L HANY Comment:Testing performed by : [address] [address] Chloride 110 97 - 110 mmol/L HANY Comment:Testing performed by : [address] [address] CO2 21(L) 22 - 32 mmol/L CERNER CH Comment:Testing performed by : [facility], [address] [place] [address], [address] Anion gap 11 2 - 15 mmol/L CERNER CH Comment:Testing performed by : [facility], [address] [place] [address], [address] BUN 48(H) 6 - 25 mg/dL CERNER CH Comment:Testing performed by : [facility], [address] [place] [address], [address] Creatinine 1. [id number]|2024-12-14 10:54:00|2024-12-14 10:53:00|XMS_ITS|BKG MARIANON|External Medical Summaries|[id number]|" Clinical Summary Created on: December 14, 2024 Cristiane Saldivar : 04/10/1931 Sex: Female Author Organization [facility] Address [address] [facility] [place] [place] [address] Care Team Providers Care Human Resources Safety Manager Name Role Phone Jerad Silverman MD Primary Care Provider [phone] Allergies No known active allergies Medications famotidine (PEPCID) 10 mg tablet Active melatonin 3 mg Tablet, Rapid Dissolve 05/10/2021 Active polyethylene glycol 3350 (MIRALAX) 17 gram/dose Powder 02/20/2023 Ac tive carvediloL (COREG) 6.25 mg tablet Active Vit A,C,X-Meep-Uwfxh r (PreserVision AREDS) 4,296 mcg-226 mg-90 mg Capsule 05/10/2021 Active fgrzfkfv-wpi-kxs ic acid-biotin (Hair,Skin and Nails,FA-biotin, ) 133.3 mcg- 1,666.7 mcg Capsule 04/07/2022 Active loratadine (CLARITIN) 10 mg tablet Take 10 mg by mouth daily. Active levothyroxine 75 mcg tablet Take 75 mcg by mouth daily. Active ferrous sulfate 325 mg (65 mg iron) tablet 05/10/2021 Active citalopram (CeleXA) 20 mg tablet Active calcium as carbonate (CALTRATE) 1,500 mg (600 mg elemental) Tablet 11/04/2021 Active hydrALAZINE (APRESOLINE) 25 mg tablet 05/10/2021 Active acetaminophen (TYLENOL) 325 mg tablet 02/23/2023 Active dextromethorphan -guaiFENesin (MUCINEX DM) 30-600 mg Tablet Sustained Release 12HR Take 1 Tablet by mouth every 12 hours. Active Active Problems No known active problems Encounters Date Type Department Care Team Description 11/08/2024 11:00 AM CDT Office Visit [facility] Oncology and Hematology [facility] [address] [place] [address] Rodney Johnson MD Pancytopenia (CMS/HCC) (Primary Dx) 11/06/2024 Orders Only [facility] Oncology and Hematology [facility] [address] [place] [address] Rodney Johnson MD 09/17/2024 External Device Data STL ABSTRACTION Provider, Abstract from Last 3 Months Family History Relation Name Status Comments Brother 1 Brother 2 Brother 3 Daughter 1 Alive Daughter 2 Alive Daughter 3 Alive Father Mother Sister 1 Sister 2 Sister 3 Sister 4 Alive Son Social History Tobacco Use Types Packs/Day Years Used Date Smoking Tobacco: Never Smokeless Tobacco: Never Tobacco Cessation:Counseling Given: Not Answered Alcohol Use Standard Drinks/Week Comments Never 0 (1 standard drink = 0.6 oz pur e alcohol) Comments Unknown Sex and Gender Information Value Date Recorded Sex Assigned at Not on file Legal Sex Female 9:07 AM SHEETMETAL WORKER Gender Identity Not on file Sexual Orientation Not on file Last Filed Vital Signs Vital Sign Reading Time Taken Comments Blood Pressure 147/82 11/08/2024 11:10 AM CDT Pulse 65 11/08/2024 11:07 AM CDT Temperature 36.3 C (97.4 F) 11/08/2024 11:07 AM CDT Respiratory Rate 15 11/08/2024 11:07 AM CDT Oxygen Saturation 95% 11/08/2024 11:07 AM CDT Inhaled Oxygen Concentration - - Weight 61.7 kg (136 lb) 11/08/2024 11:07 AM CDT Height 152.4 cm (5') 08/14/2023 1:41 PM SHEETMETAL WORKER Body Mass Index 26.56 08/14/2023 1:41 PM SHEETMETAL WORKER Plan of Treatment Upcoming Encounters Date Type Department Care Team (Late st Contact Info) Description 07/04/2025 11:00 AM SHEETMETAL WORKER Office Visit [facility] Oncology and Hematology - [place] [address] [facility] [address] [place] [address] Rodney Johnson MD [address] [facility] [address] [place] [address] Health Maintenance Due Date Last Done Comments DTAP/TDAP/TD VACCINES (1 - Tdap) 04/10/1952 ZOSTER VACCINE (1 of 2) 04/10/1983 RSV VACCINE (60+ or ) (1 - 1-dose 75+ series) 04/10/2008 PNEUMOCOCCAL VACCINE 50+ YEA RS (2 of 2 - PPSV23) 08/03/2017 08/03/2016, 08/05/2015 INFLUENZA VACCINE (#1) 2024 9, 08/03/2016, 08/05/2015, Additional history exists OSTEOPOROSIS SCREENING 06/30/2028 06/30/2023 Procedures Procedure Name Priority Date/Time Associated Diagnosis Comments BASIC METABOLIC PANEL Routine 11/05/2024 1:33 PM CDT CBC MIXED CELL DIFFERENTIAL Routine 11/05/2024 12:50 PM CDT from Last 3 Months Results * BASIC METABOLIC PANEL (11/05/2024 1:33 PM CDT) Blood us Rodney Johnson MD CHEMISTRY ORDERABLES Final Resu lt * CBC MIXED CELL DIFFERENTIAL (11/05/2024 12:50 PM CDT) Blood us Rodney Johnson MD HEMATOLOGY ORDERABLES Final Res ult from Last 3 Months Insurance [address] [place] [address] MEDICARE PART A AND B [facility] [id number] Care Teams Human Resources Safety Manager Relationship Specialty Start Date End Date Jerad Silverman MD [address] [place] [id number] PCP - General Family Practice 08/14/23 "
--- OUTSIDE RECORDS SUMMARY | 2024-12-14 10:43 | XMS_ITS ---
Author Name Auto Generated, Auto Generated Organization [facility] Address [address] [place] [address] Phone [phone] Care Team Providers Care Medical Safety Director Name Role Phone Jairo Corona Unavailable Tian Villeda Unavailable [phone] Functional Status No Results Mental Status No Results Allergies and Intolerances Name Onset Date Reaction Severity quinapril (Allergy) Mon Sep 18 17:05:00 EDT 2022 erythromycin (Allergy) Mon Sep 18 17:05:00 EDT 2 023 propoxyphene (Allergy) Mon Sep 18 17:05:00 EDT 2 023 codeine (Allergy) Mon Sep 18 17:05:00 EDT 2022 Sulfa (Sulfonamide Antibiotics) (Allergy) Mon p 18 17:05:00 EDT 2022 Medications Medication Directions Start Date End Date amLODIPine 5 mg tablet 1 tablet TABLET O ral 1 Time Daily for 1 Day Indication: htn MonMay 05 20:30:00 EDT 2022May 06 20:29:00 EDT 2022 amLODIPine 10 mg tablet 1 tablet TABLET Oral 1 Time Daily Indication: htn MonMay 06 07:00:00 EDT 2022May 08 01:00:00 EDT 2022 traZODone 50 mg tablet 1 tablet TABLET O ral 1 Time Daily Indication: insomnia MonMay 05 21:00:00 EDT 2022May 08 01:00:00 EDT 2022 amLODIPine 5 mg tablet 1 tab TABLET Oral 1 Time Daily Indication: hypertension MonMay 03 12:25:00 EDT 2022May 05 22:59:00 EDT 2022 hydrALAZINE 10 mg tablet 1 tablet TABLET Oral 4 Times Daily Indication: hypertension MonMay 03 07:00:00 EDT 2022May 08 01:00:00 EDT 2022 cloNIDine HCL 0.2 mg tablet 1 tablet TAB LET Oral 2 Times Daily Indication: HTNFOR SBP >160 AND DBP >100 Fri Sep 29 15:00:00 EDT 2022May 03 12:22:00 EDT 2022 cloNIDine HCL 0.2 mg tablet 1 tab TABLET Oral 1 Time Daily for 1 Day Indication: HTN Wed Sep 27 21:00:00 EDT 2022 [place] Sep 28 20:59:00 EDT 2022 acetaminophen 325 mg tablet 2 tabs TABLE T Oral PRN Every 6 Hours Indication: for elevated pain or temperature [place] Sep 19:05:00 EDT 2022May 08 01:00:00 EDT 2022 ALPRAZolam 0.25 mg tablet 1 TABLET TABLE T Oral PRN 2 Times Daily for 14 Days Indication: ANXIETY [place] Sep 21 15:00:00 EDT 2022May 04 14:59:00 EDT 2022 cholecalciferol (vitamin D3) 25 mcg (1,000 unit) tablet 2,000 Units TABLET Oral 1 Time Daily Indication: supplement Shel[place] Sep 21 15:23:00 EDT 2022May 08 01:00:00 EDT 2022 ALPRAZolam 0.25 mg tablet 1 TABLET TABLE T Oral PRN 2 Times Daily Indication: ANXIETY Tue Sep 19 09:00:00 EDT 2022 [place] Sep 21 15:17:00 EDT 2022 sertraline 50 mg tablet 1 TABLET TABLET Oral 2 Times Daily Indication: Depression e Sep 09:00:00 EDT 2022May 08 01:00:00 EDT 2022 TUBErsoL 5 tub. unit/0.1 mL intradermal injection solution 0.1 ml VIAL (ML) Intradermal 1 Time Weekly for 2 Weeks Indication: TB testing 1st injection on admission, then one week after. Read between 48 and 72 hours MonApr 17 21:00:00 EDT 2022May 01 20:59:00 EDT 2022 TUBErsoL 5 tub. unit/0.1 mL intradermal injection solution Read Results VIAL (ML) Other 1 Time Weekly for 2 Weeks Indication: TB testing Read results between 48-72 hours after 1st and 2nd (1 week apart). If positive do chest x-ray. Mon 18 21:00:00 EDT 2022May 01 20:59:00 EDT 2022 ALPRAZolam 0.25 mg tablet 1 TABLET TABLE T Oral PRN 2 Times Daily Indication: ANXIETY Mon Sep 18 17:00:00 EDT 2022 Wed Sep 20 00:09:00 EDT 2022 aspirin 81 mg tablet,delayed release 1 TABLET TABLET, DELAYED RELEASE (ENTERIC COATED) Oral Every Morning Indication: Blood thinner Mon 18 17:00:00 EDT 2022May 08 01:00:00 EDT 2022 ciprofloxacin 500 mg tablet 1 TABLET TAB LET Oral 2 Times Daily for 3 Days Indication: INFECTION FOR 5 DOSES Mon [facility] 17:00:00 EDT 2022 [facility] Sep 16:59:00 EDT 2022 cyanocobalamin (vit B-12) 1,000 mcg tablet 1 TABLET TABLET Oral 2 Times Weekly Indication: supplement MonApr 17 17:00:00 EDT 2022May 08 01:00:00 EDT 2022 Prolia 60 mg/mL subcutaneous syringe 1 ML SYRINGE (ML) Subcutaneous Every 3 Months Indication: Osteoporosis (1 ML=60MG) [facility] 18 17:00:00 EDT 2022Apr 17 21:21:00 EDT 2022 dilTIAZem ER 180 mg capsule,24 hr,extended release 1 CAPSULE CAPSULE, EXTENDED RELEASE 24HR Oral 1 Time Daily Indication: HTN Mon 18 17:00:00 EDT 2022 Sep 20 08:55:00 EDT 2022 gemfibroziL 600 mg tablet 1 TABLET TABLE T Oral 2 Times Daily Indication: High cholesterol MonApr 17 17:00:00 EDT 2022May 08 01:00:00 EDT 2022 losartan 100 mg tablet 1 TABLET TABLET O ral 1 Time Daily Indication: HTN MonApr 17 17:00:00 EDT 2022May 08 01:00:00 EDT 2022 melatonin 3 mg tablet 1 TABLET TABLET Or al Hour Of Sleep Indication: Insomnia MonApr 17 17:00:00 EDT 2022May 08 01:00:00 EDT 2022 lidocaine 5 % topical patch 1 PATCH ADHE SIVE PATCH, MEDICATED Topical 2 Times Daily Indication: PAIN PLACE OVER AREA OF MAXIMAL INTENSIRTY PAIN*ON FOR 12 HOURS/OFF FOR 12 HOURS* [facility] 18 17:00:00 EDT 2022 Mon Sep 25 10:02:00 EDT 2022 methocarbamoL 500 mg tablet 1 TABLET TAB LET Oral 3 Times Daily Indication: Pain Mon Sep 18 17:00:00 EDT 2022 [facility] Sep 18 23:43:00 EDT 2022 naloxone 4 mg/actuation nasal spray 1 SPRAY SPRAY, NON-AEROSOL (EA) Intranasal PRN Indication: OPIOD REVERSAL OR RESPIRATORY DEPRESSION CALL 911. ADMINISTER A SINGLE SPRAY IN ONE NOSTRIL. REPEAT EVERY 3 MINUTES NEEDED IF NO OR MINIMAL RESPONSE [facility] Sep 18 17:00:00 EDT 2022May 08 01:00:00 EDT 2022 oxyCODONE 5 mg tablet 1 TABLET TABLET Or al PRN Every 4 Hours Indication: PAIN FOR UP TO 4 DOSES [facility] Sep 18 17:00:00 EDT 2022May 08 01:00:00 EDT 2022 polyethylene glycoL 3350 17 gram/dose oral powder 17 GRAMS POWDER (GRAM) Oral 1 Time Daily Indication: CONSTIPATION DISSOLVE IN 4-8 OZ OF LIQUID Mon Sep 17:00:00 EDT 2022May 08 01:00:00 EDT 2022 Senna with Docusate Sodium 8.6 mg-50 mg tablet 2 TABLETS TABLET Oral PRN 2 Times Daily Indication: CONSTIPATION Mon Sep 18 17:00:00 EDT 2022May 08 01:00:00 EDT 2022 sertraline 50 mg tablet 1 TABLET TABLET Oral 2 Times Daily Indication: Depression Mon Sep 18 17:00:00 EDT 2022 Wed Sep 20 00:11:00 EDT 2022 cholecalciferol (vitamin D3) 25 mcg (1,000 unit) tablet 1 TABLET TABLET Oral Every Morning Indication: supplement Mon Sep 18 17:00:00 EDT 2022 [place] Sep 21 15:24:00 EDT 2022 methocarbamoL 500 mg tablet 500 mg TABLE T Oral 3 Times Daily Indication: Muscle spasm Mon 18 23:30:00 EDT 2022May 08 01:00:00 EDT 2022 dilTIAZem CD 180 mg capsule,extended release 24 hr 180 mg Oral 1 Time Daily Indication: HTN Mon 18 13:00:00 EDT 2022 Tue May 02 14:26:00 EDT 2022 Problems Active Concerns * Multiple fractures of pelvis without disruption of pelvic ring, subsequent encounter for fracture with routine healing* Code: * Start Date: MonApr 17 00:00:00 EDT 2022 * End Date: * Text: * Generalized anxiety disorder* Code: * Start Date: MonApr 17 00:00:00 EDT 2022 * End Date: * Text: * Chronic kidney disease, stage 3a* Code: * Start Date: MonApr 17 00:00:00 EDT 2022 * End Date: * Text: * Fall (on) (from) other stairs and steps, subsequent encounter* Code: * Start Date: MonApr 17 00:00:00 EDT 2022 * End Date: * Text: * Collapsed vertebra, not elsewhere classified, lumbar region, sequela of fracture* Code: * Start Date: MonApr 17 00:00:00 EDT 2022 * End Date: * Text: * Other chronic pain* Code: * Start Date: MonApr 17 00:00:00 EDT 2022 * End Date: * Text: * Presence of right artificial hip joint* Code: * Start Date: MonApr 17 00:00:00 EDT 2022 * End Date: * Text: * Nonrheumatic aortic (valve) stenosis with insufficiency* Code: * Start Date: MonApr 17 00:00:00 EDT 2022 * End Date: * Text: * Hypertensive chronic kidney disease with stage 1 through stage 4 chronic kidney disease, or unspecified chronic kidney disease* Code: * Start Date: MonApr 17 00:00:00 EDT 2022 * End Date: * Text: * Vitamin D deficiency, unspecified* Code: * Start Date: MonApr 17 00:00:00 EDT 2022 * End Date: * Text: * Major depressive disorder, single episode, unspecified* Code: * Start Date: MonApr 17 00:00:00 EDT 2022 * End Date: * Text: * Age-related osteoporosis without current pathological fracture* Code: * Start Date: MonApr 17 00:00:00 EDT 2022 * End Date: * Text: * Sleep apnea, unspecified* Code: * Start Date: MonApr 17 00:00:00 EDT 2022 * End Date: * Text: * Spinal stenosis, site unspecified* Code: * Start Date: MonApr 17 00:00:00 EDT 2022 * End Date: * Text: * Arthrodesis status* Code: * Start Date: MonApr 17 00:00:00 EDT 2022 * End Date: * Text: * Personal history of COVID-19* Code: * Start Date: MonApr 17 00:00:00 EDT 2022 * End Date: * Text: * Mixed hyperlipidemia* Code: * Start Date: MonApr 17 00:00:00 EDT 2022 * End Date: * Text: * Polyosteoarthritis, unspecified* Code: * Start Date: MonApr 17 00:00:00 EDT 2022 * End Date: * Text: * Bradycardia, unspecified* Code: * Start Date: MonApr 17 00:00:00 EDT 2022 * End Date: * Text: * Nonrheumatic mitral (valve) insufficiency* Code: * Start Date: MonApr 17 00:00:00 EDT 2022 * End Date: * Text: * Personal history of malignant neoplasm of ovary* Code: * Start Date: MonApr 17 00:00:00 EDT 2022 * End Date: * Text: * Urinary tract infection, site not specified* Code: * Start Date: MonApr 17 00:00:00 EDT 2022 * End Date: * Text: * Vitamin B deficiency, unspecified* Code: * Start Date: MonApr 17 00:00:00 EDT 2022 * End Date: * Text: * Slow transit constipation* Code: * Start Date: MonApr 17 00:00:00 EDT 2022 * End Date: * Text: * Insomnia, unspecified* Code: * Start Date: MonApr 17 00:00:00 EDT 2022 * End Date: * Text: * half-way (current) use of aspirin* Code: * Start Date: MonApr 17 00:00:00 EDT 2022 * End Date: * Text: * Drug induced constipation* Code: * Start Date: MonApr 17 00:00:00 EDT 2022 * End Date: * Text: * Adverse effect of other opioids, subsequent encounter* Code: * Start Date: MonApr 17 00:00:00 EDT 2022 * End Date: * Text: * Unspecified hearing loss, bilateral* Code: * Start Date: MonApr 17 00:00:00 EDT 2022 * End Date: * Text: Reason for Referral Past Medical History Resolved Concerns * Problem Nonrheumatic aortic (valve) insufficiency* Code: * Start Date: MonApr 17 00:00:00 EDT 2022 * End Date: MonApr 18 00:00:00 EDT 2022 * Problem Unspecified osteoarthritis, unspecified site* Code: * Start Date: MonApr 17 00:00:00 EDT 2022 * End Date: MonApr 18 00:00:00 EDT 2022
--- OUTSIDE RECORDS SUMMARY | 2024-12-14 10:43 | XMS_ITS | Encounter Summary ---
Author Organization [facility] Address [address] [place] [address] Phone Care Team Providers Care Commercial Credit Officer Name Role Phone Jorge A Colindres MD Primary Care Provider [phone] Bambi Santos MD Unavailable [phone] Walt Castellanos MD Unavailable [phone] Cristiane Mireles MD Unavailable [phone] Delilah Zavala MD Unavailable [phone] Sol Hannah LPN Unavailable [phone] Dariela Edward DO Unavailable [phone] Encounter Details Date Type Department Care Team (Late st Contact Info) Description 02/27/2021 Orders Only [facility] [address] [place] [address] Scanning, Provider Social History Tobacco [...] week 02/15/2021 How often do you attend [facility] or gnosticist services? Never 02/15/2021 Do you belong to any clubs o r organizations such as cheondoism groups, unions, fraternal or athletic groups, or [...] slept in a fci (including now)? No 02/15/2021 Comments No Sex and Gender Information Value Date Recorded Sex Assigned at Not on file Legal Sex Female 6:07 PM PROGRAM HOST Gender Identity Not on file Sexual Orientation [...] COVID: Suspected 06/11/2021 06/11/2021 06/11/2021 4:11 PM PROGRAM HOST COVID: Suspected 06/14/2021 06/14/2021 06/14/2021 4:59 PM PROGRAM HOST RSV, droplet 06/14/2021 06/14/2021 06/21/2021 3:05 AM PROGRAM HOST COVID: Suspected 03/22/2022 03/22/2022 03/22/2022 1:59 PM CDT COVID19 03/22/2022 03/22/2022 04/01/2022 3:05 AM CDT COVID: Recovered Comment:Added based on recent COVID infection. 04/01/2022 04/05/2022 07/30/2022 3:[address] documented as of this encounter Care Teams Commercial Credit Officer Relationship Specialty Start Date End Date Jorge A Colindres MD [address] [place] [address] PCP - General 10/28/16 Bambi Santos MD [address] [place] [address] Consulting Physician Cardiology 03/23/18 Walt Castellanos MD [address] [place] [address] Surgeon Ophthalmology 08/21/19 Cristiane Mireles MD [address] [address] Consulting Physician Critical Care Med 06/18/20 [place] [address] [place] [address] Consulting Physician Gastroenterology 02/19/21 Sol Hannah, JOSE [address] [place] [address] [address] [place] [address] Arts Manager 05/10/23 06/15/23 Dariela Edward DO [address] [place] [address] DR LJ Gupta [facility] [address] [place] [address] Consulting Physician Otolaryngology 06/20/23 documented as of this encounter
--- OUTSIDE RECORDS SUMMARY | 2024-12-14 10:43 | XMS_ITS ---
Author Name Auto Generated, Auto Generated Organization [facility] Address [address] [place] [address] Phone [phone] Care Team Providers Care Turn Laster Name Role Phone Jairo Corona Unavailable Tian Villeda Unavailable Functional Status No Results Mental Status No [...] Hours Indication: for elevated pain or temperature [place] Sep 19:05:00 EDT 2022May 08 01:00:00 EDT [...] Days Indication: INFECTION FOR 5 DOSES Mon [facility] 17:00:00 EDT 2022 [facility] Sep 16:59:00 EDT 2022 cyanocobalamin (vit B-12) 1,000 mcg tablet 1 TABLET TABLET Oral 2 Times Weekly Indication: supplement MonApr 17 17:00:00 EDT 2022May 08 01:00:00 EDT 2022 Prolia 60 mg/mL subcutaneous syringe 1 ML SYRINGE (ML) Subcutaneous Every 3 Months Indication: Osteoporosis (1 ML=60MG) [facility] 18 17:00:00 EDT 2022Apr 17 21:21:00 EDT [...] PAIN*ON FOR 12 HOURS/OFF FOR 12 HOURS* [facility] 18 17:00:00 EDT 2022 Mon Sep 25 10:02:00 EDT 2022 methocarbamoL 500 mg tablet 1 TABLET TAB LET Oral 3 Times Daily Indication: Pain Mon Sep 18 17:00:00 EDT 2022 [facility] Sep 18 23:43:00 EDT 2022 naloxone 4 mg/actuation nasal spray 1 SPRAY SPRAY, NON-AEROSOL (EA) Intranasal PRN Indication: OPIOD REVERSAL OR RESPIRATORY DEPRESSION CALL 911. ADMINISTER A SINGLE SPRAY IN ONE NOSTRIL. REPEAT EVERY 3 MINUTES NEEDED IF NO OR MINIMAL RESPONSE [facility] Sep 18 17:00:00 EDT 2022May 08 01:00:00 EDT 2022 oxyCODONE 5 mg tablet 1 TABLET TABLET Or al PRN Every 4 Hours Indication: PAIN FOR UP TO 4 DOSES [facility] Sep 18 17:00:00 EDT 2022May 08 01:00:00 [...] 2022 * End Date: * Text: * intermediate (current) use of aspirin* Code: * Start [...]
--- OUTSIDE RECORDS SUMMARY | 2024-12-14 10:43 | XMS_ITS | Encounter Summary ---
Author Organization [facility] Address [address] [place] [address] Care Team Providers Care Wardrobe Stylist Name Role Phone Denzel Beckford MD Unavailable [phone] Jorge A Colindres MD Primary Care Provider [phone] Encounter Details Date Type Department Care Team (Late st Contact Info) Description 12/26/2019 Lab Requisition 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 D[facility] Received: 12/26/2019 09:41 AM Pathologist: [...] specimen consists of a shave biopsy measuring [id number]. Jar 0+. 0 4:36 PM CDT DERMATOPATHOLOGY [...] characteristic determined by the Dermatopathology Laboratory at [facility], directed by Dr. Arturo Delarosa. These tests need not be, and therefore are not, approved by the [place] Food and Drug Administration. The tests are used for clinical purposes. Billing Codes Specimen Charges Stain Charges 24489 1 0 4:36 PM CDT DERMATOPATHOLOGY LABORATORY Embedded Images 0 4:36 PM CDT DERMATOPATHOLOGY LABORATORY Pathology/Cytolog y TISSUE SPECIMEN FROM SKIN / Unknown 12/25/2019 12/26/2019 9:41 AM CDT us Zora Da Silva MD LAB - PATHOLOGY/CYTOLOGY ORDERABLES Final Result DERMATOPATHOLOGY LABORATORY [facility] - Department of Dermatology [facility]/[address] [phone] documented in this encounter Visit Diagnoses Not on filedocumented in this encounter Care Teams Wardrobe Stylist Relationship Specialty Start Date End Date Jorge A Colindres MD [address] [place] [address] PCP - General Internal Medicine 03/08/24 [place] [address] [address] Orthopedic Surgery 02/24/12 documented as of this encounter
--- OUTSIDE RECORDS SUMMARY | 2024-12-14 10:43 | XMS_ITS | Clinical Summary ---
Author Organization [facility] Address [address] [facility] [place] [address] Phone Care Team Providers Care Or Nurse Manager Name Role Phone Kvng Smith DPM Unavailable [phone] Jorge A Colindres MD Primary Care Provider [phone] Allergies Active Allergy Reactions Criticality Noted Date [...] this topic Insurance MEDICARE RAILROAD Care Teams Or Nurse Manager Relationship Specialty Start Date End Date Jorge A Colindres [place] [address] [place] [place] [address] PCP - General Internal Medicine 01/13/16 Kvng Smith DPM Podiatry 01/13/16
--- OUTSIDE RECORDS SUMMARY | 2024-12-14 10:43 | XMS_ITS | Data Portability ---
Author Organization [facility] Address [address] [place] [address] Assessment No assessment recorded. Plan of Treatment [...] dose or 50 mcg/0.25mL dose 09/09/2020 completed Laura Sal LPN [facility], [facility] 09/09/2020 12:30:58 COVID-19, mRNA, LNP-S, PF, 100 mcg/0.5mL dose or 50 mcg/0.25mL dose 10/07/2020 completed Maggie Davalos MA [facility], [facility] 10/07/2020 15:42:28 Past Encounters Encounter ID Performer Location Encounter Start Date Encounter Closed Date Diagnosis/Indication Diagnosis SNOMED-CT Code Diagnosis ICD10 Code Diagnosis Note [id number] MD David Luna 14 IM [address] [facility] [place] [address] 09/09/2020 10:55:12 09/10/2020 08:25:55 Administration of SARS-CoV-2 antigen vaccine [id number] Z23 [id number] MD David Luna [address] [place] [address] 10/07/2020 10:33:14 10/09/2020 10:59:27 Administration of SARS-CoV-2 antigen vaccine [id number] Z23 Health Concerns Section Related Observation LastModified by Organization Detai ls LastModified Time None Recorded Concern Status LastModified by Organization Details LastModified Time None Recorded Advance Directives Directive None Recorded Payers Encounter Date Sequence Insurance Name Policy Number Policy Reynoso Covered Member ID Reynoso Member ID Guarantor Name 09/09/2020 1 [place] F[employer]o Rdz [id number] 3 [employer]umo [employer]dz 10/07/2020 1 [place] Fadumo Rdz [id number] 3 Fadumo Rdz OBGyn Episode No OBEpisode recorded.
--- OUTSIDE RECORDS SUMMARY | 2024-12-14 10:43 | XMS_ITS | Continuity of Care Document ---
Author Organization [facility] Address [address] [facility] [address] [place] [address] Phone Care Team Providers Care Scrap Charger Name Role Phone Sam BRYANT, Leisa Unavailable [...] Copied on Encounter Office/outpa tient Visit, Est [facility], [address], [place], [place], [address], [place] tel:[phone] SEC [place] Professional Complete Exam (chief complaint) Dry eye syndrome of bilateral lacrimal glandsIschem ic optic neuropathy of right eyePseudopha zoila of both eyes 4 Sam OD Leisa. [address], [address], [place], [place], [address], [place]. tel:[phone] Tyler Mccormack MD.Referring Provider: Champ Bazan, [address] [facility] [address], [place], [address]. tel:[phone] [facility], [address], [place], [place], [address], [place] tel:[phone] SEC [place] No Information -202 4 Ivan Sutton. [address], [address], [place], [place], [address], [place]. tel:[phone] Office/outpa tient Visit, [facility] Eye [facility], [address] [place], [place] [address], [place], [place], [address], [place] tel:[phone] SEC Angela COTTRELL Professional Stye FU (chief complaint) Dry eye syndrome of bilateral lacrimal glands Oct- 4 Sam OD Leisa. [address] [place], [place] [address], [address], [place], [place], [address], [place]. tel:[phone] Tyler Mccormack MD.Referring Provider: Champ Bazan, [address] [facility] [address], [place], [address]. tel:[phone] Office/outpa tient Visit, [facility], [address], [place], [place], [address], [place] tel:[phone] SEC Angela COTTRELL Professional Red/painfu l (chief complaint) Hordeolum internum of right lower eyelid 4 Duong OD Jaqui. [address], [address], [place], [place], [address], [place]. tel:[phone] Tyler Mccormack MD.Referring Provider: Champ Bazan, [address] [facility] [address], [place], [address]. tel:[phone] [facility] Eye [facility], [address], [place], [place], [address], [place] tel:[phone] SEC Angela COTTRELL Professional Complete Exam (chief complaint) Drusen (degenerativ e) of macula, right eyeIschemic optic neuropathy of right eyeDry eye syndrome of bilateral lacrimal glands Sep- 3 Sam OD Leisa. [address], [address], [place], [place], [address], [place]. tel:[phone] Tyler Mccormack MD.Referring Provider: Le[place], [address], [place], [address]. tel:[phone] [facility], [address], [place], [place], [address], [place] tel:[phone] SEC [place] Professional Complete Exam (chief complaint) Drusen (degenerativ e) of macula, right eyeIschemic optic neuropathy of right eyePresence of intraocular lens 2 Emile Oakes. [address] [facility], [address], [place], [place], [address], [place]. tel:[phone] Specialist: Tyler Mccormack MD, [address] [place] [address], [address]. tel:[phone] ng Provider: Champ Bazan, [address] [facility] [address], [place], [address]. tel:[phone] [facility], [address], [place], [place], [address], [place] tel:[phone] SEC [place] Professional Complete Exam (chief complaint) Cystoid macular edema of right eyePseudopha zoila of both eyesDrusen (degenerativ e) of macula, right eyeIschemic optic neuropathy of right eye 1 Emile Oakes. [address] [facility], [address], [place], [place], [address], [place]. tel:[phone] Specialist: Tyler Mccormack MD, [address] [place] [address], [address]. tel:[phone] ng Provider: Vinita White MD L, [address] Professional [facility] Ophthalmolog is, [place], [address]. tel:[phone] [facility], [address], [place], [place], [address], [place] tel:[phone] SEC [place] N Lisa No Information 1 Warrenbillie Hoskins. [address] [place], [address], [place]. [phone] Specialist: Tyler Mccormack MD, [address] [place], [address]. [phone] Office/outpa tient Visit, [facility] Eye [facility], [address], [place], [place], [address], [place] tel:[phone] SEC Angela COTTRELL Professional CME f/u (chief complaint) Cystoid macular edema of right eyePresence of intraocular lens 0 Emile Oakes. [address], [address], [place], [place], [address], [place]. tel:[phone] Referring Provider: Vinita White MD L, [address] Junaid Professional [facility] [place], [address]. tel:[phone] [facility], [address], [place], [place], [address], [place] tel:[phone] SEC Angela COTTRELL Professional Complete Exam (chief complaint) Pseudophakia of both eyesGliosis of optic nerve of right eyePunctate keratitis, bilateralEpi retinal membrane (ERM) of right eyeCystoid macular edema of right eyeVisual field loss 0 Emile Oakes. [address], [address], [place], [place], [address], [place]. [phone] Referring Provider: Vinita White MD L, [address] DBharati Professional Michelle Tyndall Ophthalmolog ists, [place], [address]. tel:[phone] Office/outpa tient Visit, [facility] Eye [facility], [address], [place], [place], [address], [place] tel:[phone] SEC Angela COTTRELL Professional Bubble (chief complaint) Conjunctival cysts, right eye Sep-1 9 Ivan Sutton. [address] [place] [address] Drive, [address], [place], [place], [address], [place]. tel:[phone] Referring Provider: Vinita Willis, [address]una[address] Professional Michelle [place], [address]. tel:[phone] [place] [address] [facility], [address] [place] [address] [address], [place], [place], [address], tel:[phone] SEC Angela COTTRELL Professional Complete Exam (chief complaint) Pseudophakia of both eyesGliosis of optic nerve of right eyeVitreous degeneration , right eyeLesion of right eyelidPtosis of both eyelids Jul- 9 Emile Oakes. [address] [facility], [facility] [place], [address], [place]. tel:[phone] Referring Provider: Vinita Willis, [address] Tyndall Ophthalmolog is, [place], [address]. tel:[phone] [place], [place] [address]Foodoro [facility], [address] [place] [address] [address], [place], [place], [address], [place] tel:[phone] SEC Angela COTTRELL Professional No Information 9 Emile Oakes. [address] [facility], [address], [place], [place], [address], [place]. tel:[phone] [facility] Eye [facility], [address], [place], [place], [address], [place] tel:[phone] SEC Angela COTTRELL Professional Complete Exam (chief complaint) No Information 8 7 Erica Ramon. [address] [place], [address], [place]. tel:[phone] Referring Provider: Vinita Willis, [address] Martinez [place], [address]. tel:[phone] [place] [address] Eye [facility], [address], [place], [place], [address], [place] tel:[phone] SEC Angela COTTRELL Professional complete eye exam (chief complaint) No Information 6 Sveta Todd. [address] [facility], [address], [place], [place], [address], [place]. tel:[phone] Referring Provider: Vinita Willis, [address] D'Nael Professional [employer] [place], [address]. tel:[phone] [place] [address], [address] [address], [place], [place], [address], [place] tel:[phone] SEC Angela COTTRELL Professional Blurry vision (chief complaint) No Information Fabián Hoyt. [address] [facility], [address], [place], [address], [place]. tel:[phone] Referring Provider: Vinita Willis, [address] DBharati Professional [employer] Ophthalmolog is, [place], [address]. tel:[phone] [place] [address], [address], [place], [place], [address], [place] tel:[phone] SEC Angela COTTRELL Professional No Information 3 Ivan Sutton. [address] [facility] [place] [address], [address], [place], [place], [address], [place]. tel:[phone] Referring Provider: Vinita Willis, [address] Professional Bovill [place], [address]. tel:[phone] Office/outpa tient Visit, [facility], [address], [place], [place], [address], [place] tel:[phone] SEC [place] N Lisa No Information 3 Ap Sen. [address] [facility], [facility] Center[facility] [place], [address], [place]. tel:[phone] Referring Provider: Vinita Willis, [address] Professional Park [place], [address]. tel:[phone] [place] [address] Eye [facility], [address], [place], [place], [address], [place] tel:[phone] SEC Angela COTTRELL Professional No Information 2 Sveta Todd. [address] [facility], [facility] Center[facility] [place], [address], [place]. [phone] Referring Provider: Vinita Willis, [address] Professional Bovill [place], [address]. tel:[phone] Office/outpa tient Visit, [facility], [address], [place], [place], [address], [place] tel:[phone] SEC Angela COTTRELL Professional No Information 0 1 Sveta Todd. [address] [facility]Ad[facility], [facility] Center[facility] [place], [address], [place]. [phone] Referring Provider: Vinita Willis, [address] Professional Bovill [place], [address]. tel:[phone] [place] [address], [address] [address], [place], [place], [address], [place] tel:[phone] SEC Angela COTTRELL Professional No Information 1 Wankum Perez. [address] [facility] CenterandrewAdventHealth [facility], [facility] [place], [address], [place]. tel:[phone] Referring Provider: Vinita Willis, [address] DBharati Professional [place], [address]. tel:[phone] [place], [place] [address] Newspaper Organization Eye [facility], [address], [place], [place], [address], [place] tel:[phone] SEC Angela Root No Information 1 Ravalli Herman. [address], [address], [place], [place], [address], [place]. tel:[phone] Referring Provider: Vinita Willis, [address] DBharati Professional [employer] [place], [address]. tel:[phone] [place] [address] Eye [facility], [address], [place], [place], [address], [place] tel:[phone] SEC Jovan Ana Lindberg No Information 1 Ivan Herman. [address], [address], [place], [place], [address], [place]. [phone] Referring Provider: Vinita Willis, [address] DBharati Professional [employer] [place], [address]. tel:[phone] [place] [address] Eye [facility], [address], [place], [place], [address], [place] tel:[phone] SEC Jovan Ana Lindberg No Information 1 Ivan Herman. [address], [address], [place], [place], [address], [place]. tel:[phone] Referring Provider: Vinita Willis, [address] Professional [employer] [place], [address]. tel:[phone] [place], [place] [address] Newspaper Organization Eye [facility], [address], [place], [place], [address], [place] tel:[phone] SEC Jovan N Lindbergh No Information 1 Ivan Herman. [address], [address], [place], [place], [address], [place]. tel:[phone] Referring Provider: Vinita Willis, [address] Martinez [place], [address]. tel:[phone] [facility] The Other Guys Eye [employer], [address], [place], [place], [address], [place] tel:[phone] SEC [place] N Lind[place]h No Information 1 Ravalli Herman. [facility] [address], [address], [place], [place], [address], [place]. tel:[phone] Newspaper Organization Eye [employer] [facility]an[facility], [address], [place], [place], [address], [place] tel:[phone] SEC [place] N Lind[place]h No Information 1 Ivan Herman. [address], [address], [place], [place], [address], [place]. tel:[phone] The Other Guys Eye [facility], [address], [place], [place], [address], [place] tel:[phone] SEC [place] N Lind[place]h No Information 1 Ravalli Herman. [facility] [address], [address], [place], [place], [address], [place]. tel:[phone] Referring Provider: Vinita Willis, [address] [place], [address]. tel:[phone] [facility] The Other Guys [facility], [address], [place], [place], [address], [place] tel:[phone] SEC [place] N Lindbergh No Information 5 1 Ivan Herman. [address] [facility], [address], [place], [place], [address], [place]. [phone] Referring Provider: Vinita Willis, [address] Juna[address] Professional [facility] [place], [address]. tel:[phone] [facility] Eye [facility], [address], [place], [place], [address], [place] [phone] [facility] No Information 4 1 Ivan Herman. [address] [facility], [address], [place], [place], [address], [place]. [phone] Referring Provider: Vinita Willis, [address] Juna[address] [facility] [place], [address]. tel:[phone] Office/outpa tient Visit, [facility] Eye [facility], [address], [place], [place], [address], [place] tel:[phone] SEC Angela COTTRELL Professional No Information 0 8-201 1 Ravalli Herman. [address] [place] [address], [address], [place], [place], [address], [place]. [phone] Office/outpa tient Visit, [facility] Eye [facility], [address], [place], [place], [address], [place] tel:[phone] SEC [place] N Mal[place]erg No Information 3 0-201 0 Ravalli Herman. [address] [facility], [address], [place], [place], [address], [place]. [phone] Office/outpa tient Visit, [facility] Eye [facility], [address], [place], [place], [address], [place] tel:[phone] SEC [facility] No Information -201 [address] [facility] [address], [place], [address], [place]. [phone] [facility], [address], [place], [place], [address], [place] tel:[phone] SEC [facility] Professional No Information 201 0 Saeed Aide. 1 [facility], [address], [place], [place], [facility], [place]. tel:[phone] [facility] Eye [facility], [address], [place], [place], [address], [place] tel:[phone] SEC [facility] Professional No Information 5-[address] [facility] 102, [place], [place], [facility], [place]. tel:[phone] [facility], [address], [place], [place], [address], [place] tel:[phone] SEC [facility] Professional No Information Jun-0 8-200 8 Sveta Todd. [address] [facility], [place], [address], [place]. tel:[phone] Referring Provider: Perez Leary, [address] [facility] A, [place], [address]. tel:[phone] [facility], [address], [place], [place], [address], [place] [phone] SEC [facility] No Information 2 1-[address] [facility] [address], [place], [address], [place]. tel:[phone] [facility], [address], [place], [place], [address], [place] tel:[phone] [facility] Corporate Center No Information 4-200 8 Krishnasamy Kyler. [address] Corporate Center [facility] [address], [place], [address], [place]. tel:[phone] [facility], [address], [place], [place], [address], [place] tel:[phone] [facility] No Information 3-200 8 Krishnasamy Kyler. [address], [place], [address], [place]. tel:[phone] [facility] Eye [facility], [address] [place] [address] [address], [place], [place], [address], [place] tel:[phone] SEC [place] Professional No Information 3-200 8 Krishnasamy Kyler. [address] Corporate Center [facility] [address], [place], [address], [place]. tel:[phone] Office/outpa tient Visit, [facility] Eye [facility], [address] [place] [address] [address], [place], [place], [address], [place] tel:[phone] SEC [place] Professional No Information 8-200 [address] [facility], [place], [address], [place]. tel:[phone] Referring Provider: Herman Leary, [address] [place] [address], [place], [address]. tel:[phone] Office/outpa tient Visit, [facility], [address] [place] [address] [address], [place], [place], [address], [place] tel:[phone] SEC [place] Professional No Information 3-200 8 Ivan Sutton. [facility] [address], [address], [place], [place], [address], [place]. tel:[phone] [facility] Eye [facility], [address] [place] [address] [address], [place], [place], [address], [place] tel:[phone] SEC Angela COTTRELL Professional No Information 7 Sveta Todd. [address] [facility], [address], [place], [place], [address], [place]. tel:[phone] Family History Family Member Type Diagnosis Age At Onset Sister Problem (finding) Glaucoma and Diabetes Payers Payer name Insurance type Covered alliance party ID Authoriza tipoonam(s) Medicare MB [id number] [facility] CI [id number] Social History Type Description Quantity Date Captured [...] Referral Referred To: Tyler Mccormack [address] [place], [phone] Ordered: Referrals: Allopathic & Osteopathic Physicians : Ophthalmology. Tyler Mccormack. Evaluate and treat ordered Referral Referred To: Tyler Mccormack MD [address] [place], [phone] Ordered: Referrals: Ophthalmology. Tyler Mccormack MD. Evaluate [...] Impression/Plan Impression/Plan Impression/Plan Return in 1 year martinez Maldonado M.D. for Complete Exam. Related to [...] problems. Related to Pseudophakia of both eyes Follow [...] Related to Pseudophakia of both eyes - Discussed diagnosi s in detail with patient. Continue using artificial tears for dry eyes. Return to clinic in 1 year for complete exam or sooner with any problems. Related to See list of assessments above - Return in 1 year w bradley [...] with GAW Related to FOLLOW-UP SURGERY NOS FOLLOW-UP SURGERY NO S, OD - S/P -scleral graft stable- 7 sutures removed. 7 remain- healing nicely - increase gtts 2-3 times today then back down to qday tomorrow. AR next visit if unable to AR- pt needs K's Related to FOLLOW-UP SURGERY NOS - 4 [...] GAW/[address] Love at the [place] office Related to FOLLOW-UP SURGERY NOS FOLLOW-UP [...]
--- OUTSIDE RECORDS SUMMARY | 2024-12-14 10:43 | XMS_ITS | Clinical Summary ---
Author Organization [facility] Address [address] [place] [address] Care Team Providers Care Slubber Frame Changer Name Role Phone Unavailable Primary Care Provider [...] BY MOUTH THREE TIMES DAILY 3 Active denosumab (PROLIA) 60 mg/mL Syringe Inject 60 mg by subcutaneous injection. 4 Active amLODIPine (NORVASC) 5 mg tablet Take 5 mg by mouth daily. 4 12/01/19 Active Problems No known active problems Encounters Date Type Department Care Team Description 12/03/2024 External Device Data [facility] ABSTRACTION Provider, Abstract 09/18/2024 External Device Data [facility] ABSTRACTION Provider, [...] season) 2024 10/07/2020, 09/09/2020 OSTEOPOROSIS SCREENING 02/05/2029 , 02/06/2024, 01/30/2023, Additional history exists PNEUMOCOCCAL VACCINE 50+ YEARS Completed 01/15/2016 , 04/21/2004 [place] [address] [address] [place] [id number]
[2024-12-14 11:10] LABS: Hematocrit 33.2 % (37.0-47.0); Hemoglobin 10.1 g/dL (12.0-15.0); Mean Corpuscular HGB Conc 30.4 g/dl (32-36); Mean Corpuscular Volume 95.4 fl (80-100); Mean Platelet Volume 11.1 fl (7.4-10.4); Platelet Count Result 164 k/mm3 (150-375); Red Blood Count 3.48 M/mm3 (4.2-5.4); Red Cell Distribution Width 14.5 % (11.5-14.5); White Blood Count 6.4 K/mm3 (4.5-10.0)
[2024-12-14 11:21] LABS: Alanine Aminotransferase 15 U/L (6-35); Albumin Level 3.8 g/dL (3.5-5.1); Alkaline Phosphatase 55 U/L (38-126); Anion Gap 10 mmol/L (4-12); Aspartate Amino Transferase 28 U/L (14-36); Bilirubin,Total 0.4 mg/dL (0.2-1.3); Blood Urea Nitrogen 49 mg/dL (7-17); Calcium 7.7 mg/dL (8.4-10.2); Carbon Dioxide 21 mmol/L (22-30); Chloride 111 mmol/L (98-107); Estimated Glomerular Filt Rate 34; Glucose 80 mg/dL (65-110); Magnesium 2.4 mg/dL (1.6-2.3); Phosphorus 4.7 mg/dL (2.5-4.5); Potassium 4.8 mmol/L (3.4-5.0); Sodium 142 mmol/L (137-145)
[2024-12-14 11:33] LABS: Parathyroid Intact 114.9 pg/mL (14.5-75.2)
[2024-12-14 11:41] LABS: Free T4 Free Thyroxine 1.14 ng/dL (0.78-2.19); Vitamin D 25 Hydroxy 37.8 ng/mL
[2024-12-16 15:13] LABS: Ionized Calcium 4.6 mg/dL (4.7-5.5)
== END 2024-12-14 10:41 | disposition home or self-care (01) ==
PROVIDERS: PCP Internal Medicine Infectious Disease; Visit Provider Internal Medicine
DX: M81.0 Age-related osteoporosis without current pathological fracture (principal); E83.52 Hypercalcemia
CPT/HCPCS: 36415; 80053; 82306; 82330; 83735; 83970; 84100; 84439; 84443; 85027

== ENCOUNTER 2025-03-19 10:45 | Outpatient (CLI) | payer MEDICARE, OTHER, SELFPAY ==
--- OUTSIDE RECORDS SUMMARY | 2025-03-19 11:15 | XMS_ITS ---
Author Name Auto Generated, Auto Generated Organization [facility] Address [address] [place] [address] Phone [phone] Care Team Providers Care Cheese Supervisor Name Role Phone Jairo Corona Unavailable Tian Villeda Unavailable [phone] Functional Status No Results Mental Status No [...] Hours Indication: for elevated pain or temperature [place] Sep 19:05:00 EDT 2022May 08 01:00:00 EDT [...] Days Indication: INFECTION FOR 5 DOSES Mon [facility] 17:00:00 EDT 2022 [facility] Sep 16:59:00 EDT 2022 cyanocobalamin (vit B-12) 1,000 mcg tablet 1 TABLET TABLET Oral 2 Times Weekly Indication: supplement MonApr 17 17:00:00 EDT 2022May 08 01:00:00 EDT 2022 Prolia 60 mg/mL subcutaneous syringe 1 ML SYRINGE (ML) Subcutaneous Every 3 Months Indication: Osteoporosis (1 ML=60MG) [facility] 18 17:00:00 EDT 2022Apr 17 21:21:00 EDT [...] PAIN*ON FOR 12 HOURS/OFF FOR 12 HOURS* [facility] 18 17:00:00 EDT 2022 Mon Sep 25 10:02:00 EDT 2022 methocarbamoL 500 mg tablet 1 TABLET TAB LET Oral 3 Times Daily Indication: Pain Mon Sep 18 17:00:00 EDT 2022 [facility] Sep 18 23:43:00 EDT 2022 naloxone 4 mg/actuation nasal spray 1 SPRAY SPRAY, NON-AEROSOL (EA) Intranasal PRN Indication: OPIOD REVERSAL OR RESPIRATORY DEPRESSION CALL 911. ADMINISTER A SINGLE SPRAY IN ONE NOSTRIL. REPEAT EVERY 3 MINUTES NEEDED IF NO OR MINIMAL RESPONSE [facility] Sep 18 17:00:00 EDT 2022May 08 01:00:00 EDT 2022 oxyCODONE 5 mg tablet 1 TABLET TABLET Or al PRN Every 4 Hours Indication: PAIN FOR UP TO 4 DOSES [facility] Sep 18 17:00:00 EDT 2022May 08 01:00:00 [...] 2022 * End Date: * Text: * detention (current) use of aspirin* Code: * Start [...]
--- OUTSIDE RECORDS SUMMARY | 2025-03-19 11:15 | XMS_ITS ---
Author Name Auto Generated, Auto Generated Organization [facility] ices Address [address] [place] [address] Phone [phone] Care Team Providers Care Lead Java Software Engineer Name Role Phone Jairo Corona Unavailable Tian [...] Hours Indication: for elevated pain or temperature [place] Sep 19:05:00 EDT 2022May 08 01:00:00 EDT [...] Days Indication: INFECTION FOR 5 DOSES [place] [facility] [place]00 [place]T 2022 [facility] Sep 16:59:00 EDT 2022 cyanocobalamin (vit B-12) 1,000 mcg tablet 1 TABLET TABLET Oral 2 Times Weekly Indication: supplement MonApr 17 17:00:00 EDT 2022May 08 01:00:00 EDT 2022 Prolia 60 mg/mL subcutaneous syringe 1 ML SYRINGE (ML) Subcutaneous Every 3 Months Indication: Osteoporosis (1 ML=60MG) [facility] 18 17:00:00 EDT 2022Apr 17 21:21:00 [...] PAIN*ON FOR 12 HOURS/OFF FOR 12 HOURS* [facility] 18 17:00:00 EDT 2022 Mon Sep 25 10:02:00 EDT 2022 methocarbamoL 500 mg tablet 1 TABLET TAB LET Oral 3 Times Daily Indication: Pain Mon Sep 18 17:00:00 EDT 2022 [facility] Sep 18 23:43:00 EDT 2022 naloxone 4 mg/actuation nasal spray 1 SPRAY SPRAY, NON-AEROSOL (EA) Intranasal PRN Indication: OPIOD REVERSAL OR RESPIRATORY DEPRESSION CALL 911. ADMINISTER A SINGLE SPRAY IN ONE NOSTRIL. REPEAT EVERY 3 MINUTES NEEDED IF NO OR MINIMAL RESPONSE [facility] Sep 18 17:00:00 EDT 2022May 08 01:00:00 EDT 2022 oxyCODONE 5 mg tablet 1 TABLET TABLET Or al PRN Every 4 Hours Indication: PAIN FOR UP TO 4 DOSES [facility] Sep 18 17:00:00 EDT 2022May 08 [...]
--- OUTSIDE RECORDS SUMMARY | 2025-03-19 11:21 | XMS_ITS | Clinical Summary ---
Author Organization [facility] Address [address] [place] [address] Care Team Providers Care Laundry Marker Supervisor Name Role Phone Denzel Beckford MD Unavailable [phone] Jorge A Colindres MD Primary Care Provider [phone] Source Comments [facility],non-owned Affiliates and Associated Physician Practices is amultiple site organization consisting of ambulatory clinics and hospital sitesin [place], [place], [place] and [place]. This disclosure is being madepursuant to the Care Everywhere program and may not contain all information available regarding this patient. Last updated 18.[facility] Allergies Active Allergy Reactions Criticality Noted Date [...] vitamin D, ergocalciferol , (Drisdol) 1.25 MG (89844 UT) capsule Take 1 (one) capsule by [...] care, and heating? Not very hard 04/18/2024 [facility] [place] [facility] - Occupational Stress [...] slept in a fdc (including now)? 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 Gender Identity Not on file Sexual Orientation [...] P M CDT Height 157.5 cm (5' 2) 05/03/2024 1:04 PM CDT Body Mass Index [...] 2024 06/27/2021, 10/07/2020, 09/09/2020 DEPRESSION SCREENING 07/31/2024 INFLUENZA VACCINE (#1) 2025 , 04/12/2024, 05/11/2023, Additional history exists PNEUMOCOCCAL VACCINE 50+ Completed 01/15/2016, 04/01 BONE DENSITY TESTING Completed 02/06/2024, 01/30/2023, 01/13/2021, Additional history exists HEPATITIS B VACCINE Aged [...] to complete this topic [place] [address] MEDICARE [facility] CARE [facility] MEDICARE Advance Directives Documents on File Type Date Recorded Patient Air Technician Expl anation Adv Directive/Living Will/POA 03/09/2012 2:35 PM * Full Code (Latest Code Status on File) Date Activated Date Inactivated Comments 04/18/2024 3:08 PM 04/20/2024 6:45 PM * FULL RESUSCITATION Date Activated Date Inactivated Comments 03/05/2012 2:02 PM 03/08/2012 1:35 PM * FULL RESUSCITATION Date Activated Date Inactivated Comments 06/29/2011 1:53 PM 07/01/2011 10:25 PM Care Teams Laundry Marker Supervisor Relationship Specialty Start Date End Date Jorge A Colindres MD [address] [address] PCP - General Internal Medicine 03/08/24 [place] [address] [place] [id number] Orthopedic Surgery 02/24/12
--- OUTSIDE RECORDS SUMMARY | 2025-03-19 11:22 | XMS_ITS | Clinical Summary ---
Author Organization [facility] Address [address] [place] [address] Care Team Providers Care Cloth Piecer Name Role Phone Unavailable Primary Care Provider [...] Encounters Date Type Department Care Team Description 02/13/2025 External Device Data STL ABSTRACTION Provider, Abstract 02/12/2025 External Device Data ST[facility] ABSTRACTION Provider, Abstract 02/12/2025 External Device Data ST[facility] ABSTRACTION Provider, Abstract 01/15/2025 External Device Data STL ABSTRACTION Provider, Abstract 01/15/2025 External Device Data STL ABSTRACTION Provider, Abstract 12/24/2024 External Device Data STL ABSTRACTION Provider, Abstract 12/19/2024 External Device Data ST[facility] ABSTRACTION Provider, Abstract 12/18/2024 External Device Data STL ABSTRACTION Provider, Abstract [...] 10:00 AM CDT Height 157.5 cm (5' 2) 02/23/2024 11:35 AM CDT Body Mass Index 24.44 02/23/2024 11:35 AM CDT Plan of Treatment Health Maintenance Due Date Last Done Comments DTAP/TDAP/TD VACCINES (1 - Tdap) 01/06/1954 ZOSTER VACCINE (1 of 2) 1987 RSV VACCINE (60+ or ) (1 - 1-dose 75+ series) 01/06/2012 COVID-19 Vaccine (3 - 2023-2 5 season) 2024 10/07/2020, 09/09/2020 INFLUENZA VACCINE (#1) 2025 3, 05/18/2022, 05/18/2021, Additional history exists OSTEOPOROSIS SCREENING 02/05/2029 4, 02/06/2024, 01/30/2023, Additional history exists PNEUMOCOCCAL VACCINE 50+ YEARS Completed 01/15/2016 , 04/21/2004 Insurance MEDICARE [facility] [place] [id number]
--- OUTSIDE RECORDS SUMMARY | 2025-03-19 11:22 | XMS_ITS | Encounter Summary ---
Author Organization [facility] Address [address] [place] [address] Phone Care Team Providers Care Live In Companion Name Role Phone Jorge A Colindres MD Primary Care Provider [phone] Bambi Santos MD Unavailable [phone] Walt Castellanos MD Unavailable [phone] Cristiane Mireles MD Unavailable [phone] Delilah Zavala MD Unavailable [phone] Sol Hannah LPN Unavailable [phone] Dariela Edward DO Unavailable [phone] Encounter Details Date Type Department Care Team (Late st Contact Info) Description 03/30/2022 Orders Only [facility] [address] [place] [address] Scanning, Provider Social History Tobacco Use Types Packs/Day Years Used Date Smoking Tobacco: Never Smokeless Tobacco: Never Alcohol Use Standard Drinks/Week Comments No 0 (1 standard drink = 0.6 oz pur e alcohol) Social Connection and Isolation Panel Answer Date Recorded In a typical week, how many times do you talk on the phone with family, friends, or neighbors? More than three times a week 02/15/2021 How often do you get togethe r with friends or relatives? More than three times a week 02/15/2021 How often do you attend [facility] or buddhism services? Never 02/15/2021 Do you belong to any clubs o r organizations such as rastafari groups, unions, fraternal or athletic groups, or [...] place to sleep or slept in a half-way (including now)? No 02/15/2021 Comments No Sex and Gender Information Value Date Recorded Sex Assigned at Not on file Legal Sex Female 6:07 PM PLUGGER Gender Identity Not on file Sexual Orientation [...] documented as of this encounter Care Teams Live In Companion Relationship Specialty Start Date End Date Jorge A Colindres MD [address] [place] [address] PCP - General 10/28/16 Bambi Santos MD [address] [place] [address] Consulting Physician Cardiology 03/23/18 Watl Castellanos MD [address] [place] [address] Surgeon Ophthalmology 08/21/19 Cristiane Mireles MD [address] [facility] [address] [place] [address] Consulting Physician Critical Care Med 06/18/20 [place] [address] [address] [facility] [address] [place] [address] Consulting Physician Gastroenterology 02/19/21 Sol Hannah LPN [address] [place] [address] Jewelry Making Instructor 05/10/23 06/15/23 Dariela Edward DO [address] [facility] [address] [address] Consulting Physician Otolaryngology 06/20/23 documented as of this encounter
--- OUTSIDE RECORDS SUMMARY | 2025-03-19 11:22 | XMS_ITS | Encounter Summary ---
Author Organization [facility] Address [address] [place] [address] Care Team Providers Care Manager Culinary Name Role Phone JensJorge A MD Primary Care Provider [phone] Bambi Santos MD Unavailable [phone] Walt Castellanos MD Unavailable Cristiane Mireles MD Unavailable [phone] Delilah Zavala MD Unavailable [phone] Sol Hannah LPN Unavailable [phone] Dariela Edward DO Unavailable [phone] Encounter Details Date Type Department Care Team (Late st Contact Info) Description 01/12/2021 Telephone [facility] [address] [place] [id number] Vandana uQeen, RT Social History Tobacco Use Types Packs/Day [...] on file Legal Sex Female 6:07 PM COAT IRONER HAND Gender Identity Not on file Sexual Orientation Not on file documented as of this encounter Plan of Treatment Not on file documented as of this encounter Visit Diagnoses Not on filedocumented in this encounter Additional Health Concerns Infection Onset Date Last Indicated Resolved Time COVID: Suspected 06/11/2021 06/11/2021 06/11/2021 4:11 PM COAT IRONER HAND COVID: Suspected 06/14/2021 06/14/2021 06/14/2021 4:59 PM COAT IRONER HAND RSV, droplet 06/14/2021 06/14/2021 06/21/2021 3:05 AM COAT IRONER HAND COVID: Suspected 03/22/2022 03/22/2022 03/22/2022 1:59 PM CDT COVID19 03/22/2022 03/22/2022 04/01/2022 3:05 AM CDT COVID: Recovered Comment:Added based on recent COVID infection. 04/01/2022 04/05/2022 07/30/2022 3:[address] documented as of this encounter Care Teams Manager Culinary Relationship Specialty Start Date End Date Jorge A Colindres MD [address] [place] [address] PCP - General 10/28/16 Bambi Santos MD [address] [place] [address] Consulting Physician Cardiology 03/23/18 Walt Castellanos MD [address] [place] [address] Surgeon Ophthalmology 08/21/19 Cristiane Mireles MD [address] [facility] [address] [place] [address] Consulting Physician Critical Care Med 06/18/20 [place] [address] [address] [facility] [address], [place] [address] Consulting Physician Gastroenterology 02/19/21 Sol Hannah, OPTICAL WORKER [address] [place] [address] Account Representative 05/10/23 06/15/23 Dariela Edward DO [address] [place] [address] [address] [place] [address] Consulting Physician Otolaryngology 06/20/23 documented as of this encounter
--- OUTSIDE RECORDS SUMMARY | 2025-03-19 11:22 | XMS_ITS | Encounter Summary ---
Author Organization [facility] Address [address] [place] [address] Phone Care Team Providers Care Pier Worker Name Role Phone Jorge A Colindres MD Primary Care Provider [phone] Bambi Santos MD Unavailable Walt Castellanos MD Unavailable [phone] Cristiane Mireles MD Unavailable [phone] Delilah Zavala MD Unavailable [phone] Sol Hannah LPN Unavailable [phone] Dariela Edward DO Unavailable [phone] Encounter Details Date Type Department Care Team (Late st Contact Info) Description 02/27/2021 Orders Only [facility] [address] [place] [address] Scanning, Provider Social History Tobacco [...] week 02/15/2021 How often do you attend [facility] or gnosticism services? Never 02/15/2021 Do you belong to any clubs o r organizations such as nondenominational groups, unions, fraternal or athletic groups, or [...] on file Legal Sex Female 6:07 PM FISH AND WILDLIFE BIOLOGIST Gender Identity Not on file Sexual Orientation [...] COVID: Suspected 06/11/2021 06/11/2021 06/11/2021 4:11 PM FISH AND WILDLIFE BIOLOGIST COVID: Suspected 06/14/2021 06/14/2021 06/14/2021 4:59 PM FISH AND WILDLIFE BIOLOGIST RSV, droplet 06/14/2021 06/14/2021 06/21/2021 3:05 AM FISH AND WILDLIFE BIOLOGIST COVID: Suspected 03/22/2022 03/22/2022 03/22/2022 1:59 PM CDT COVID19 03/22/2022 03/22/2022 04/01/2022 3:05 AM CDT COVID: Recovered Comment:Added based on recent COVID infection. 04/01/2022 04/05/2022 07/30/2022 3:[address] documented as of this encounter Care Teams Pier Worker Relationship Specialty Start Date End Date Jorge A Colindres MD [address] [place] [address] PCP - General 10/28/16 Bambi Santos MD [address] [place] [address] Consulting Physician Cardiology 03/23/18 Walt Castellanos MD [address] [place] [address] Surgeon Ophthalmology 08/21/19 Cristiane Mireles MD [address] [address] Consulting Physician Critical Care Med 06/18/20 [place] [address] [facility] [address] [place] [address] Consulting Physician Gastroenterology 02/19/21 Sol Hannah LPN [address] [place] [address] [address] [place] [address] Media Director 05/10/23 06/15/23 Dariela Edward DO [address] [facility] [address] [facility] [address] [place] [address] Consulting Physician Otolaryngology 06/20/23 documented as of this encounter
--- OUTSIDE RECORDS SUMMARY | 2025-03-19 11:22 | XMS_ITS | Clinical Summary ---
Author Organization [facility] Virtual Care Address [address] [place] [phone] Phone Care Team Providers Care Tube Cleaning Operator Name Role Phone Jorge A Colindres MD Primary Care Provider [phone] Bambi Santos MD Unavailable [phone] Walt Castellanos MD Unavailable Cristiane Mireles MD Unavailable [phone] Delilah Zavala MD Unavailable [phone] Dariela Edward DO Unavailable [phone] Allergies Active Allergy Reactions Criticality Noted Date [...] Active Additional Information Patient not taking.Reported on 12/17/2024 acetaminophen (TYLENOL) 325 mg tabletIndicatio ns:Pain Take 2 tablets (650 mg total) by mouth every 6 (six) hours as needed for pain Active ALPRAZolam (XANAX) 0.25 mg tablet Take 1 tablet (0.25 mg total) by mouth nightly as needed for anxiety 30 tablet 04/04/20 24 Active ergocalciferol (VITAMIN D) 50,000 unit capsule Take 1 capsule (50,000 Units total) by mouth once a week 04/27/20 24 Active denosumab (PROLIA) 60 mg/mL syringeIndicati ons:postmenopau jorgito osteoporosis and high fracture risk Inject 1 mL (60 mg total) under the skin once for 1 dose 1 mL 1 08/09/19 25 Active amLODIPine (NORVASC) 5 mg tablet Take 1 tablet (5 mg total) by mouth daily 30 tablet 11 12/18/19 25 2025 Active traMADoL (ULTRAM) 50 mg tablet Take 1 tablet (50 mg total) by mouth 2 (two) times a day 40 tablet 12/18/19 25 Active hydrALAZINE (APRESOLINE) 25 mg tabletIndicatio ns:Hypertension , essential TAKE 1 TABLET BY MOUTH TWICE DAILY 180 tablet 1 12/31/19 25 Active sertraline (ZOLOFT) 50 mg tabletIndicatio ns:Depression, unspecified depression type Take 2 tablets (100 mg total) by mouth daily 180 tablet 1 02/22/20 25 Active mirtazapine (REMERON) 15 mg tabletIndicatio ns:Other depression TAKE 1 TABLET(15 MG) BY MOUTH EVERY NIGHT 30 tablet 2 02/28/20 25 Active losartan (COZAAR) 100 mg tabletIndicatio ns:Hypertension , essential TAKE 1 TABLET(100 MG) BY MOUTH DAILY 90 tablet 02/28/20 25 Active hydrALAZINE (APRESOLINE) 10 mg tabletIndicatio ns:hypertension Take 1 tablet by mouth 3 (three) times a day patient taking 25mg 3x daily Discontinued(D ose adjustment) losartan (COZAAR) 100 mg tablet HALF PILL A DAY 04/26/20 24 2024 Discontinued sertraline (ZOLOFT) 50 mg tablet TAKE 2 TABLETS(100 MG) BY MOUTH DAILY 180 tablet 1 07/26/20 24 2024 Discontinued mirtazapine (REMERON) 15 mg tabletIndicatio ns:Other depression TAKE 1 TABLET(15 MG) BY MOUTH EVERY NIGHT 30 tablet 1 12/10/19 25 2024 Discontinued losartan (COZAAR) 100 mg tablet TAKE 1 TABLET(100 MG) BY MOUTH DAILY 90 tablet 02/26/20 25 2024 Discontinued Active Problems Problem Noted Date Diagnosed Date Encounter for Medicare annual wellness exam 11/29 Nonrheumatic aortic valve stenosis 11/11/2024 Cellulitis 05/08/2024 [...] 04/12/2024 Assessment & Plan (08/07/2024 12:56 PM VITAMIN MANAGER): CHRONIC AND STABLE REMERON HS FOR APPETITE [...] annual wellness exam 10/2023 Assessment & Plan (12/17/2024 5:39 PM CDT): IMMUNIZATIONS WERE REVIEWED No cogntive decline Fall prevention and precuations were reviewed Assessment & Plan (12/02/2023 4:43 PM CDT): IMMUNIZATIONS WERE REVIEWED DISCUSSED SHINGRIX VACCINE ELEVATED BP GOAL IS UNDER 130/80 OR LESS WITH A H/O AAA ( 3.5 CM ) AND MILD AORTIC STENOSIS F/U DR [facility] HYPER[facility]CEM[facility] WITH AN ELEVATED INTACT PTH, NL [...] 06/15/2022 Assessment & Plan (06/15/2022 9:44 AM VITAMIN MANAGER): Chronic problem Please refer to note for [...] endurance, patient prefers 4-wheel scooter Orders for Tim Hammond to arrange FOR SCOOTER: Follow up [...] (08/09/2019): Added automatically from request for surgery [id number] 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 Lungs clear. Labs from last month and ECHO from 03/2022 were unremarkable, Service Electrician at baseline. Advised this is likely from anxiety and poor appetite. See plan for anxiety/depression above. Non-rheumatic mitral regurgitation 05/08/2019 Caregiver role strain 02/12/2019 Assessment & Plan (06/15/2022 9:57 AM VITAMIN MANAGER): Chronic problem Patient's has dementia - patient [...] endurance, patient prefers 4-wheel scooter Orders for Tim Hammond to arrange FOR HELP IN HOME: Call office at the end of the week or the beginning of next week if haven't heard from home health social media marketing analyst - will have office staff reach out [...] Hypercholesterolemia Assessment & Plan (08/07/2024 12:55 PM VITAMIN MANAGER): FLP AND LDL WERE REVIEWED GOAL LDL [...] malignancy Hypertension, essential 07/27/2010 Assessment & Plan (12/17/2024 5:39 PM CDT): Goal bp is 130/80 or under Low na diet Assessment & Plan (08/07/2024 12:55 PM VITAMIN MANAGER): GOAL BP IS 130/80 OR UNDER LOW [...] 05/26/2023 Assessment & Plan (06/15/2022 9:49 AM VITAMIN MANAGER): Acute problem, patient reports only one occurrence [...] endurance, patient prefers 4-wheel scooter Orders for Tim Hammond to arrange FOR HEART RATE: Continue monitoring heart rate - report readings <50 or >100 Continue monitoring blood pressure - report readings <90/60 or >140/90 Continue monitoring symptoms - report symptoms of chest pain, shortness of breath, dizziness, weakness/fatigue to the office or plastic manager Follow up with cardiology as recommended Follow up with PT as recommended and able Follow up with Dr. Colindres as scheduled or sooner if necessary Rectal bleeding 02/14/2021 05/26/2023 Encounters Date Type Department Care Team Description 03/14/2025 2:04 PM CDT - 03/14/2025 11:59 PM CDT Hospital Encounter [facility] [address] [place] [address] Chronic kidney disease, stage 3b (HCC) Discharge Disposition: Discharge to home or self care 03/04/2025 10:30 AM CDT [facility] [address] [facility] [address] [place] [address] Catrachita Cheema RN Age-related osteoporosis without current pathological fracture (Primary Dx) 01/27/2025 9:36 PM CDT - 01/27/2025 11:59 PM CDT Hospital Encounter [address] [address] Discharge Disposition: Discharge to home or self care 12/17/2024 2:15 PM CDT Office Visit [facility] [address] [place] [phone] Jorge A Colindres MD Encounter for Medicare annual wellness exam (Primary Dx); Mixed hyperlipidemia; Hypertension, essential; Primary hyperparathyroidism from Last 3 Months Immunizations Immunization Administration [...] materials from doctor or pharmacy Never 07/10/2023 [facility] Utilities Answer Date Recorded In the past 12 months has [facility] [employer], [employer], or water [employer] threatened to shut off services in your home? No 06/16/2023 Social Connection and Isolation Panel Answer Date Recorded In a typical week, how many times do you talk on the phone with family, friends, or neighbors? More than three times a week 06/16/2023 How often do you get togethe r with friends or relatives? Once a week 06/16/2023 How often do you attend chur ch or congregation services? Never 06/16/2023 Do you belong to [...] place to sleep or slept in a retirement (including now)? No 06/16/2023 Personal Safety Answer [...] on file Legal Sex Female 6:07 PM VITAMIN MANAGER Gender Identity Not on file Sexual Orientation Not on file Obstetrics History Last Filed Vital Signs Vital Sign Reading Time Taken Comments Blood Pressure 146/68 03/04/2025 10:44 AM CDT Pulse 83 03/04/2025 10:44 AM CDT Temperature 36.2 C (97.1 F) 03/04/2025 10:44 AM CDT Respiratory Rate 20 03/04/2025 10:44 AM CDT Oxygen Saturation 98% 03/04/2025 10:44 AM CDT Inhaled Oxygen Concentration - - Weight 60.9 kg (134 lb 3.2 oz) 12/17/2024 2:11 P M CDT Height 172.7 cm (5' 8) 12/17/2024 2:11 PM CDT Body Mass Index 20.41 12/17/2024 2:11 PM CDT Plan of Treatment Health Maintenance Due Date Last Done Comments Hepatitis B Screening 1953 Zoster Vaccine (1 of 2) 1987 DTaP/Tdap/Td Vaccine (1 - Tdap) 05/20/2008 Covid-19 Vaccine (4 - 2023-2 5 season) 2024 06/27/2021, 10/07/2020, 09/09/2020 Depression Screening 11/30/2024 12/01/2023, 04/14/2023, 09/06/2022, Additional history exists Influenza Vaccine (#1) 2025 , 04/12/2024, 05/11/2023, Additional history exists Fall Risk Assessment 12/17/2025 12/17/2024, 12/01/2023, 06/20/2023, Additional history exists Well Visit 65+ 12/17/2025 12/17/2024, 05/0 09/2023, 09/06/2022, Additional history exists Osteoporosis Screening-Bone Density Scan 02/05/2026 02/06/2024, 01/30/2023, 01/13/2021, Additional history exists Pneumococcal vaccine 65+ Completed 01/15/2016, 04/01 Procedures Procedure Name Priority Date/Time Associated Diagnosis Comments SURGICAL PATHOLOGY Routine 01/27/2025 9:52 AM CDT DEXA AXIAL SKELETON BONE DENSITY 1 OR MORE SITES Schedule Routine, Read Routine (OP Routine) 02/06/2024 10:28 AM CDT Osteoporosis, unspecified osteoporosis type, unspecified pathological fracture presence from Last 3 Months or Most Recently Relevant to Health Maintenance Results * Surgical pathology (01/27/2025 9:52 AM CDT) Bone - Biopsy / Curettings 01/27/2025 9:52 AM CDT 01/29/2025 9:52 AM CDT Narrative 01/30/2025 6:01 PM CDT EPIC results best viewed via link to PDF [facility] Department of Pathology [address] [place] [id number] Note to Patients: This report may contain a detailed description of human tissue sent by a health care provider to the laboratory for pathologic evaluation. The content of this report is essential for diagnosis and may provide important critical findings. This information may be unfamiliar to patients to review without a medical professional present. It is advised that the patient review this report in the presence of a health care provider who can answer questions and explain the details. Final Report Patient Name: TIM HAMMOND Address: [address] [place] [address] Gender: F : 1935 (Age: 89) Service: Location: [facility] : [id number] [facility] #: [id number] Patient Type: SPECIMEN Taken: 01/27/2025 Received: 01/29/2025 Accessioned: 01/29/2025 Reported: 01/30/2025 Physician(s):Víctor Lara M.D. Diagnosis: Vertebral body, T12, kyphoplasty: - Fragmented bony trabeculae and hemorrhage, clinically T12 vertebral fracture. Rimma Coats M.D. Report Electronically Reviewed and Signed Out By Rimma Coats M.D. 01/30/2025 18:01:47 Specimen(s) Received: A: T12 Microscopic Description: Microscopic examination of the decalcified sections from the T12 vertebral body, examined at multiple levels show bone with fragmented bony trabeculae and hemorrhage. There is no evidence of malignancy. Clinical History: T12 vertebral fracture Procedure: 7 12 vertebral body biopsy / T12 hyphoplasty Gross Description: The specimen is submitted in a single container labeled VIOLA STEPHANY and T12. It is a core of red-polanco bone measuring 6 in length. The specimen is decalcified and all in one cassette. Dipesh Kumar R.N., P.A./Jalyn Nicole M.D. REPORT IMAGES AND SCANNED DOCUMENTS, IF INCLUDED, ONLY VIEWABLE IN PDF VERSION OF REPORT The performance characteristics of some immunohistochemical stains, fluorescence in-situ hybridization tests and immunophenotyping by flow cytometry cited in this report (if any) were determined by the Surgical Pathology Department at [facility] as part of an ongoing manufacturing quality engineer program and in compliance with federally mandated regulations drawn from the Clinical Laboratory Improvement Act of 1988 (CLIA '88). Some of these tests rely on the use of analyte specific reagents and are subject to specific labeling requirements by the US Food and Drug Administration. Such diagnostic tests may only be performed in a facility that is certified by the Department of Health and Human Services as a high complexity laboratory under CLIA '88. The FDA has determined that such clearance or approval is not necessary. This test is used for clinical purposes. It should not be regarded as investigational or for research. Nevertheless, federal rules concerning the medical use of analyte specific reagents require that the following disclaimer be attached to the report: This test was developed and its performance characteristics determined by the Surgical Pathology Department [facility]. It has not been cleared or approved by the U. S. Food and Drug Administration. Note for decalcified specimens: This assay has not been validated on decalcified tissues. 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 LEFT HIP: Total BMD is 0.425 g/cm2 T-score is -4.2 This is decreased in comparison to prior exam which statistically significant. Femoral neck BMD is 0.348 g/cm2 T-score is -4.5 FRAX: FRAX not reported due to T-scores of hip, femoral neck and/or spine being at or below -2.5 (Osteoporosis). IMPRESSION: Osteoporosis. REFERENCE: Bone mineral density: T-Score: Normal (T-score above or = -1.0) Low bone mass (T-score between -1.0 and -2.5) replaces the previously used term osteopenia Osteoporosis (T-score = or below -2.5) Z-Score: Within the expected range for age (Z-score above -2.0) Below the expected range for age (Z-score is -2.0 or below) Please see below follow up recommendations. Medical evaluation for secondary causes of low bone mineral density may be appropriate. FRAX is a World Health Organization validated fracture risk assessment tool that calculates a person's 10 year probability of a major osteoporosis related fracture and hip fracture. According to the National Osteoporosis Foundation guidelines, postmenopausal women and men age 50 or older with low bone mass and a 10 year probability of a major osteoporosis related fracture = or greater than 20% or a 10 year probability of a hip fracture = or greater than 3% should be considered for pharmacological treatment for the prevention of osteoporosis. For further information, including treatment recommendations, please refer to the 2019 ISCD Official Positions (http://www.iscd.org) and the NOF's Clinician's Guide to Prevention and Treatment of Osteoporosis (http://www.nof.org/professionals/clinical-guidelines) THIS IS AN ELECTRONICALLY VERIFIED FINAL REPORT 02/06/2024 5:48 PM - Electronically signed by Tian Mckinney M.D. 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 LEFT HIP: Total BMD is 0.425 g/cm2 T-score is -4.2 This is decreased in comparison to prior exam which statisticallysignificant. Femoral neck BMD is 0.348 g/cm2 T-score is -4.5 FRAX: FRAX not reported due to T-scores of hip, femoral neck and/or spine beingat or below -2.5 (Osteoporosis). IMPRESSION: Osteoporosis. REFERENCE: Bone mineral density: T-Score: Normal (T-score above or = -1.0) Low bone mass (T-score between -1.0 and -2.5) replaces thepreviously used term osteopenia Osteoporosis (T-score = or below -2.5) Z-Score: Within the expected range for age (Z-score above -2.0) Below the expected range for age (Z-score is -2.0 or below) Please see below follow up recommendations. Medical evaluation forsecondary causes of low bone mineral density may be appropriate. FRAX is a World Health Organization validated fracture risk assessmenttool that calculates a person's 10 year probability of a major osteoporosisrelated fracture and hip fracture. According to the National OsteoporosisFoundation guidelines, postmenopausal women and men age 50 or older with low bonemass and a 10 year probability of a major osteoporosis related fracture = or greater than 20% or a 10 year probability of a hip fracture = or greaterthan 3% should be considered for pharmacological treatment for the preventionof osteoporosis. For further information, including treatment recommendations, please referto the 2019 ISCD Official Positions (http://www.iscd.org) and the NOF's Clinician's Guide to Prevention and Treatment of Osteoporosis (http://www.nof.org/professionals/clinical-guidelines) THIS IS AN ELECTRONICALLY VERIFIED FINAL REPORT 02/06/2024 5:48 PM - Electronically signed by Tian Mckinney M.D. MF: [id number] Report ID: [id number] Reading Location: [place] [address] [facility] Steve Colindres MD IMG DXA PROCEDURES Final R esult from Last 3 Months or Most Recently Relevant to Health Maintenance Insurance MEDICARE [facility]RO[facility] CHOICE PL[facility] [place] [address] [facility]IC[facility] [address] [facility] MEDICARE RAILROAD [facility] Advance Directives For more information, please contact: [phone] * Full Code (Latest Code Status on File) Date Activated Date Inactivated Comments 06/15/2023 9:39 PM 06/20/2023 10:44 PM * Full Code Date Activated Date Inactivated Comments 04/14/2023 4:16 PM 04/17/2023 8:39 PM * Full Code Date Activated Date Inactivated Comments 02/16/2021 10:47 AM 02/20/2021 7:21 PM * Full Code Date Activated Date Inactivated Comments 02/14/2021 6:30 AM 02/16/2021 10:47 AM Care Teams Tube Cleaning Operator Relationship Specialty Start Date End Date Jorge A Colindres MD [address] [place] [address] PCP - General 10/28/16 Bambi Santos MD [address] [place] [address] Consulting Physician Cardiology 03/23/18 Walt Castellanos MD [address] [place] [address] Surgeon Ophthalmology 08/21/19 Cristiane Mireles MD [address] [facility] [address] [place] [address] Consulting Physician Critical Care Med 06/18/20 [place] [id number] [place] [address] Consulting Physician Gastroenterology 02/19/21 Dariela dEward DO [address] [place] [address] DR [facility] [address] [place] [address] Consulting Physician Otolaryngology 06/20/23
--- OUTSIDE RECORDS SUMMARY | 2025-03-19 11:22 | XMS_ITS | Clinical Summary ---
Author Organization [facility] Address [address] [facility] [place] [address] Phone Care Team Providers Care Service Order Taker Name Role Phone Kvng Smith DPM Unavailable [phone] Jorge A Colindres MD Primary Care Provider [phone] Allergies Active Allergy Reactions Criticality Noted Date [...] 2:44 PM CDT Height 167.6 cm (5' 6) 03/30/2016 2:44 PM CDT Body Mass Index 29.05 03/30/2016 2:44 PM CDT Plan of Treatment Health Maintenance Due Date Last Done Comments DEXA Bone Density 1935 Hepatitis C Virus (HCV) Screening 1935 TdaP Immunization 1935 Zoster Immunization (1 of 2) 1987 Respiratory Syncytial Virus (RSV) Immunization (Adult) (1 - 1-dose 75+ series) 01/06/2012 SARS-COV-2 Immunization ( season) 2024 06/27/2021, 10/07/2020, 09/09/2020 Influenza Immunization (#1) 03/31/202504/30, 05/18/2022, 05/18/2021, Additional history exists DTaP/Tdap/Td Immunization Discontinued 05/19/2008 Pneumococcal Immunization (50+ years) Completed 01/15/2016, 04/21/2004 Pneumococcal Immunization Combined Discontinued 01/15/2016, 04/21/2004 Hepatitis B Immunization Aged Out No longer eligible based on patient's age to complete this topic Human Papillomavirus (HPV) Immunization Aged Out No longer eligible based on patient's age to complete this topic Meningococcal Immunization (ACWY) Aged Out No longer eligible based on patient's age to complete this topic Rotavirus Immunization Aged Out No lo nger eligible based on patient's age to complete this topic Insurance MEDICARE RAILROAD Care Teams Service Order Taker Relationship Specialty Start Date End Date Jorge A Colindres [place] [address] [place] [address] PCP - General Internal Medicine 01/13/16 Kvng Smith DPM Podiatry 01/13/16
[2025-03-19 12:13] LABS: Total Protein Urine Random 20 mg/dL; Ur Ttl Prot Creatinine Ratio 0.31 mg/mg (0-0.20)
[2025-03-19 12:29] LABS: Albumin Level 4.4 g/dL (3.5-5.1); Anion Gap 8 mmol/L (4-12); Blood Urea Nitrogen 55 mg/dL (7-17); Calcium 10.0 mg/dL (8.4-10.2); Carbon Dioxide 25 mmol/L (22-30); Chloride 106 mmol/L (98-107); Estimated Glomerular Filt Rate 26; Glucose 91 mg/dL (65-110); Potassium 5.3 mmol/L (3.4-5.0); Sodium 139 mmol/L (137-145)
[2025-03-19 12:41] LABS: Creatinine 24 Hour Urine 0.6 gm/24 (0.8-1.8); Total Volume 24 Hour Urine 1100 ml
[2025-03-20 12:08] LABS: Calcium, Urine 5.0 mg/dL (Not Estab.)
[2025-03-20 15:09] LABS: Albumin 3.5 g/dL (2.9-4.4); Alpha-1-Globulin 0.3 g/dL (0.0-0.4); Alpha-2-Globulin 0.9 g/dL (0.4-1.0); Gamma Globulin 1.1 g/dL (0.4-1.8)
[2025-03-21 15:09] LABS: Albumin, U 47.1 % (.); Alpha-1-Globulin, U 4.9 % (.); Alpha-2-Globulin, U 14.7 % (.); Beta Globulin, U 18.6 % (.); Gamma Globulin, U 14.7 % (.)
== END 2025-03-19 10:46 | disposition home or self-care (01) ==
PROVIDERS: PCP Internal Medicine Infectious Disease; Referring Provider Internal Medicine; Visit Provider Internal Medicine Nephrology
DX: I12.9 Hypertensive chronic kidney disease with stage 1 through stage 4 chronic kidney disease, or unspecified chronic kidney disease (principal); N18.32 Chronic kidney disease, stage 3b; M81.0 Age-related osteoporosis without current pathological fracture; E21.3 Hyperparathyroidism, unspecified; E55.9 Vitamin D deficiency, unspecified
CPT/HCPCS: 36415; 80069; 81050; 82340; 82570; 84155; 84156; 84165; 84166; 86037; 86160; 86225; 86364

== ENCOUNTER 2025-06-20 13:28 | Outpatient (CLI) | payer MEDICARE, OTHER, SELFPAY ==
--- NOTE | ~2025-06-20 | DEXA_ITS ---
Bone Density Report Name: TIM HAMMOND Age: 89 Sex: Female Ethnicity: White Date of : 1935 Indication: postmenopausal; screening for osteoporosis; Referring Provider: ALMA ROSA CANNON Study: Bone densitometry was performed. Exam Date: June 20, 2025 Accession number: [id number] Bone Density: Region BMD T-score Z-score Classification AP Spine(L3, L4) 1.046 -0.5 2.5 Normal Femoral Neck (Left) 0.385 -4.2 -1.7 Osteoporosis Total Hip (Left) 0.498 -3.6 -1.3 Osteoporosis World Health Organization criteria for BMD impression classify patients as: Normal (T-score at or above -1.0), Osteopenia (T-score between -1.0 and -2.5), or Osteoporosis (T-score at or below -2.5). 10-year Fracture Risk: FRAX not reported because: Some T-score for Spine Total or Hip Total or Femoral Neck at or below -2.5 Impression: The patient has osteoporosis, based on the Left Femoral Neck T-score. Discussion: INCREASED RISK OF FRACTURE. BONE DENSITY IS UNDESIRABLY LOW AT ONE OR MORE SKELETAL SITES, CONSISTENT WITH POSTMENOPAUSAL OSTEOPOROSIS. This patient's lowest T-score meets the World Health Organization's (WHO) criteria for osteoporosis at one or more sites (T-score -2.5 or below). In untreated patients, the risk of osteoporotic fracture increases approximately two-fold for each 1.0 SD decrease in T-score. Low bone density is not the only risk factor for fracture; also consider factors such as patient's age, frailty or poor health, risk of falling, risk of injury, previous osteoporotic fracture, family history of osteoporosis, cigarette smoking, low body weight, etc. Not everyone with low bone mineral density has osteoporosis; osteomalacia and other metabolic bone disorders should also be considered. Patients who have osteoporosis should be evaluated for specific diseases and conditions (secondary causes) that may cause or contribute to bone loss. The [place] Association of Clinical Endocrinologists (AACE) and National Osteoporosis Foundation (NOF) recommend pharmacologic intervention for all postmenopausal women whose T-score is in this range. The patient should follow a healthful lifestyle (good nutrition with adequate calcium and vitamin D, and appropriate weight-bearing exercise). Follow-Up: Consider a repeat BMD and Vertebral Fracture Assessment (VFA) exam in 2 years or sooner if medically necessary, to reassess this patient's status. Reported by: RITA on 06/20/2025 2:30:00 PM. Reviewed, dictated and finalized at location A.
--- OUTSIDE RECORDS SUMMARY | 2025-06-20 13:31 | XMS_ITS | Clinical Summary ---
Author Organization [facility] Address [address] [place] [address] Care Team Providers Care Appraiser Art Name Role Phone Unavailable Primary Care Provider [...] Active Active Problems No known active problems Family History Medical History Relation Name Comments [...] 1-dose 75+ series) 01/06/2012 INFLUENZA VACCINE (#1) 2025 3, 05/18/2022, 05/18/2021, Additional history exists COVID-19 Vaccine (3 - 2024-2 6 season) 2025 10/07/2020, 09/09/2020 OSTEOPOROSIS SCREENING 02/05/2029 , 02/06/2024, 01/30/2023, Additional history exists PNEUMOCOCCAL VACCINE 50+ YEARS Completed 01/15/2016 , 04/21/[address] [place] [address] [place] [address] MEDICARE [facility] OPTIONS PPO [id number]
--- OUTSIDE RECORDS SUMMARY | 2025-06-20 13:31 | XMS_ITS | Encounter Summary ---
Author Organization [facility] Address [address] [place] [address] Care Team Providers Care Lace Cutter Name Role Phone Denzel Beckford MD Unavailable [phone] Jorge A Colindres MD Primary Care Provider [phone] Encounter Details Date Type Department Care Team (Late st Contact Info) Description 12/26/2019 Lab Requisition [facility] DermPath Lab [address] [place] [id number] [place] [address] [place] [address] Social History Tobacco Use Types Packs/Day Years Used Date Smoking Tobacco: Never Smokeless Tobacco: Never Alcohol Use Standard Drinks/Week Comments No 0 (1 standard drink = 0.6 oz pur e alcohol) Comments Unknown Sex and Gender Information Value Date Recorded Sex Assigned at Not on file Legal Sex Female 9:38 AM [employer]ET [employer] Gender Identity Not on file Sexual Orientation Not on file documented as of this encounter Plan of Treatment Not on file documented as of this encounter Procedures Procedure Name Priority Date/Time Associated Diagnosis Comments DERMATOPATHOLOGY Routine 12/25/2019 12:0 0 AM CDT documented in this encounter Results * DERMATOPATHOLOGY (12/25/2019 12:00 AM CDT) Case Report Dermatopathology Report Case: [id number] Authorizing Provider: Zora Da Silva MD Collected: 12/25/2019 12:00 AM Ordering Location: [facility] DermPath Lab Received: 12/26/2019 09:41 AM Pathologist: Hortensia Delarosa MD Specimen: Skin, right distal lateral posterior upper arm 0 4:36 PM CDT DERMATOPATHOLOGY LABORATORY Final Diagnosis Specimen A. 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 . 0 4:36 PM CDT DERMATOPATHOLOGY LABORATORY Gross Description Specimen A: Received is one formalin filled container labeled with the patient's name and designated right distal lateral posterior upper arm. The specimen consists of a shave biopsy measuring [id number]. Jar 0+. 0 4:36 PM CDT DERMATOPATHOLOGY [...] characteristic determined by the Dermatopathology Laboratory at [facility], directed by Dr. Arturo Delarosa. These tests need not be, and therefore are not, approved by the [place] Food and Drug Administration. The tests are used for clinical purposes. Billing Codes Specimen Charges Stain Charges 22296 1 0 4:36 PM CDT DERMATOPATHOLOGY LABORATORY Embedded Images 0 4:36 PM CDT DERMATOPATHOLOGY LABORATORY Pathology/Cytolog y TISSUE SPECIMEN FROM SKIN / Unknown 12/25/2019 12/26/2019 9:41 AM CDT us Zora Da Silva MD LAB - PATHOLOGY/CYTOLOGY ORDERABLES Final Result DERMATOPATHOLOGY LABORATORY [facility] - Department of Dermatology [facility]/[address] [phone] documented in this encounter Visit Diagnoses Not on filedocumented in this encounter Care Teams Lace Cutter Relationship Specialty Start Date End Date Jorge A Colindres MD [address] [place] [address] [place] [id number] PCP - General Internal Medicine 03/08/24 [place] [address] [address] Orthopedic Surgery 02/24/12 documented as of this encounter
--- OUTSIDE RECORDS SUMMARY | 2025-06-20 13:31 | XMS_ITS | Clinical Summary ---
Author Organization [facility] Virtual Care Address [address] [place] [address] Phone Care Team Providers Care Early Education Teacher Name Role Phone Jorge A Colindres MD Primary Care Provider [phone] Bambi Santos MD Unavailable [phone] Walt Castellanos MD Unavailable [phone] Cristiane Mireles MD Unavailable [phone] Delilah Zavala MD Unavailable [phone] Dariela Edward DO Unavailable [phone] Allergies Active Allergy Reactions Criticality Noted Date Comments Codeine Unknown Erythromycin Rash Medium 06/21/2011 Propoxyphene Unknown Quinapril Unknown Sulfa (Sulfonamide Antibiotics) Rash Medium Medications aspirin 81 mg tabletIndications :Myocardial Reinfarction Prevention Take 1 tablet (81 mg total) by mouth every morning Active cholecalciferol, vitamin D3, (VITAMIN D3 ORAL) Take 1,000 Int'l Units by mouth every morning Active cyanocobalamin (vitamin B-12) 1,000 mcg tabletIndications :on Take 1 tablet (1,000 mcg total) by mouth 2 (two) times a week 3 Active acetaminophen (TYLENOL) 325 mg tabletIndications :Pain Take 2 tablets (650 mg total) by mouth every 6 (six) hours as needed for pain Active ALPRAZolam (XANAX) 0.25 mg tablet Take 1 tablet (0.25 mg total) by mouth nightly as needed for anxiety 30 tablet 4 Active ergocalciferol (VITAMIN D) 50,000 unit capsule Take 1 capsule (50,000 Units total) by mouth once a week 4 Active denosumab (PROLIA) 60 mg/mL syringeIndication s:postmenopausal osteoporosis and high fracture risk Inject 1 mL (60 mg total) under the skin once for 1 dose 1 mL 1 5 Active amLODIPine (NORVASC) 5 mg tablet Take 1 tablet (5 mg total) by mouth daily 30 tablet 11 5 12/18/19 26 Active traMADoL (ULTRAM) 50 mg tablet Take 1 tablet (50 mg total) by mouth 2 (two) times a day 40 tablet 5 Active hydrALAZINE (APRESOLINE) 25 mg tabletIndications :Hypertension, essential TAKE 1 TABLET BY MOUTH TWICE DAILY 180 tablet 1 5 Active sertraline (ZOLOFT) 50 mg tabletIndications :Depression, unspecified depression type Take 2 tablets (100 mg total) by mouth daily 180 tablet 1 5 Active losartan (COZAAR) 100 mg tabletIndications :Hypertension, essential TAKE 1 TABLET(100 MG) BY MOUTH DAILY 90 tablet 5 Active mirtazapine (REMERON) 15 mg tabletIndications :Other depression TAKE 1 TABLET(15 MG) BY MOUTH EVERY NIGHT 30 tablet 2 5 Active hydrALAZINE (APRESOLINE) 10 mg tabletIndications :hypertension Take 1 tablet by mouth 3 (three) times a day patient taking 25mg 3x daily Discontinu ed(Dose adjustment ) Active Problems Problem Noted Date Diagnosed Date Major depressive disorder, single episode, moder ate 04/16/2025 Encounter for Medicare annual wellness exam 11/29 [...] 04/12/2024 Assessment & Plan (08/07/2024 12:56 PM REIMBURSEMENT COORDINATOR): CHRONIC AND STABLE REMERON HS FOR APPETITE [...] AORTIC STENOSIS F/U DR [facility] HYPERCALCEMIA WITH AN ELEVATED INTACT PTH, NL [...] 06/15/2022 Assessment & Plan (06/15/2022 9:44 AM REIMBURSEMENT COORDINATOR): Chronic problem Please refer to note for [...] (08/09/2019): Added automatically from request for surgery [id number] 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 Lungs clear. 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 Advised this is likely from anxiety and poor appetite. See plan for anxiety/depression above. Non-rheumatic mitral regurgitation 05/08/2019 Caregiver role strain 02/12/2019 Assessment & Plan (06/15/2022 9:57 AM REIMBURSEMENT COORDINATOR): Chronic problem Patient's has dementia - patient [...] if haven't heard from home health social security specialist - will have office staff reach [...] Hypercholesterolemia Assessment & Plan (08/07/2024 12:55 PM REIMBURSEMENT COORDINATOR): FLP AND LDL WERE REVIEWED GOAL LDL [...] diet Assessment & Plan (08/07/2024 12:55 PM REIMBURSEMENT COORDINATOR): GOAL BP IS 130/80 OR UNDER LOW [...] 05/26/2023 Assessment & Plan (06/15/2022 9:49 AM REIMBURSEMENT COORDINATOR): Acute problem, patient reports only one occurrence [...] breath, dizziness, weakness/fatigue 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 Colindres as scheduled or sooner if necessary Rectal bleeding 02/14/2021 05/26/2023 Encounters Date Type Department Care Team Description 04/19/2025 Results Follow-Up [facility] [address] [facility] [address] [place] [address] Jorge A Colindres MD Transthoracic Echo (TTE) Complete W Doppler/CF 04/18/2025 12:29 PM CDT - 04/18/2025 11:59 PM CDT Hospital Encounter [facility] [address] [place] [address] Heart murmur Discharge Disposition: Discharge to home or self care 04/16/2025 11:15 AM CDT Office Visit [facility] [address] [facility] [address] [place] [address] Jorge A Colindres MD Age-related osteoporosis without current pathological fracture (Primary Dx); JONNA (generalized anxiety disorder); Hypertension, essential; Mixed hyperlipidemia; Major depressive disorder, single episode, moderate (HCC); Heart murmur 04/14/2025 9:10 AM CDT Lab [facility] 1 [facility] [address] [place] [address] Primary hyperparathyroidism; Mixed hyperlipidemia; Hypertension, essential 03/24/2025 Orders Only [facility] Information Management [address] [place] [address] Scanning, Provider from Last 3 Months Immunizations Immunization Administration [...] materials from doctor or pharmacy Never 07/10/2023 [facility] Utilities Answer Date Recorded In the past 12 months has e [employer], gas, oil, or water [email or web address] threatened to shut off services in your [...] often do you attend chur ch or rastafarian services? Never 06/16/2023 Do you belong to any clubs o r organizations such as scientologist groups, unions, fraternal or athletic groups, or [...] points, staff should administer the PHQ-9) 0 04/16/2025 Hunger Vital Sign Answer Date Recorded Within [...] place to sleep or slept in a correction (including now)? No 06/16/2023 Personal Safety Answer [...] on file Legal Sex Female 6:07 PM REIMBURSEMENT COORDINATOR Gender Identity Not on file Sexual Orientation Not on file Last Filed Vital Signs Vital Sign Reading Time Taken Comments Blood Pressure 144/72 04/16/2025 10:54 AM CDT Pulse 72 04/16/2025 10:54 AM CDT Temperature 36.7 C (98 F) 04/16/2025 10:54 AM CDT Respiratory Rate 16 04/16/2025 10:5 4 AM CDT Oxygen Saturation 96% 04/16/2025 10: 54 AM CDT Inhaled Oxygen Concentration - - Weight 62.1 kg (136 lb 12.8 oz) 025 10:54 AM CDT Height 172.7 cm (5' 8) 04/16/2025 10:5 4 AM CDT Body Mass Index 20.8 04/16/2025 10:54 AM CDT Plan of Treatment Health Maintenance Due Date Last Done Comments Hepatitis B Screening 1953 Zoster Vaccine (1 of 2) 1987 DTaP/Tdap/Td Vaccine (1 - Tdap) 05/20/2008 8 Covid-19 Vaccine (4 - 2024-2 6 season) 2025 06/27/2021, 10/07/2020, 09/09/2020 Influenza Vaccine (#1) 2025 , 04/12/2024, 05/11/2023, Additional history exists Fall Risk Assessment 12/17/2025 12/17/2024, 12/01/2023, 06/20/2023, Additional history exists Well Visit 65+ 12/17/2025 12/17/2024, 05/0 09/2023, 09/06/2022, Additional history exists Osteoporosis Screening-Bone Density Scan 02/05/2026 02/06/2024, 01/30/2023, 01/13/2021, Additional history exists Depression Screening 04/16/2026 04/16/2025, 12/01/2023, 04/14/2023, Additional history exists Pneumococcal vaccine 65+ Completed 01/15/2016, 04/01 Procedures Procedure Name Priority Date/Time Associated Diagnosis Comments TRANSTHORACIC ECHO (TTE) COMPLETE W DOPPLER/CF WO CONTRAST Routine 04/18/2025 1:15 PM CDT Heart murmur EGFR Routine 04/14/2025 9:00 AM CDT Mixed hyperlipidemia Hypertension, essential DIFFERENTIAL AUTO Routine 04/14/2025 9:00 AM CDT Mixed hyperlipidemia Hypertension, essential CBC WITH AUTO DIFFERENTIAL Routine 04/14/2025 9:00 AM CDT Mixed hyperlipidemia Hypertension, essential COMPREHENSIVE METABOLIC PANEL Routine 04/14/2025 9:00 AM CDT Mixed hyperlipidemia Hypertension, essential LIPID PANEL Routine 04/14/2025 9:00 AM CDT Mixed hyperlipidemia Hypertension, essential PTH Routine 04/14/2025 9:00 AM CDT Primary hyperparathyroidism SCAN - LABS 03/24/2025 9:20 AM CDT DEXA AXIAL SKELETON BONE DENSITY 1 OR MORE SITES Schedule Routine, Read Routine (OP Routine) 02/06/2024 10:28 AM CDT Osteoporosis, unspecified osteoporosis type, unspecified pathological fracture presence from Last 3 Months or Most Recently Relevant to Health Maintenance Results * TRANSTHORACIC ECHO (TTE) COMPLETE W DOPPLER/CF WO CONTRAST (04/18/2025 1:15 PM CDT) Estimated EF 70 % CONS SCIMAGE Anatomical Region Laterality Modality Ultrasound 04/18/2025 12:3 8 PM CDT Narrative 04/18/2025 2:39 PM CDT [address] [address] Echocardiogram Report Patient Name: TIM HAMMOND : 1935 Study Date: 04/18/2025 12:38:29 PM Sex: F Tech: AA Location: echo room 1 Ref Provider: JORGE A COLINDRES Height(Cm): BSA: Weight(Kg): Quality: Good Order Provider: JORGE A COLINDRES PROCEDURES: Echocardiographic Report: Transthoracic echocardiogram with complete 2D, M-Mode, and color Doppler examination. INDICATIONS: Aortic Stenosis and R01.1 Cardiac murmur, unspecified. MEASUREMENTS: 2D/MM Value Range Doppler Value Range Estimated EF 70 % YENY Vmax 1.39 cm2 LA Dimension MM 3.89 cm [ 2.70 - 3.80 ] AV Mean PG 22 mmHg AoR Diam MM 3.19 cm [ 2.70 - 3.70 ] AV Peak Jeff 3.03 m/s [ 1.00 - 1.70 ] ACS MM 1.56 cm AV VTI 73.83 cm LVOT Diam 2.07 cm LVOT Peak Jeff 1.25 m/s [ 0.70 - 1.10 ] LVOT VTI 33.65 cm MV E Peak Jeff 1.13 m/s [ 0.60 - 1.30 ] MV A Peak Jeff 1.79 m/s [ 1.00 - 1.20 ] MV Mean PG 5 mmHg MV PHT 101 msec [ 20 - 100 ] MVA 2.20 MV Decel Time 348 msec [ 104 - 258 ] PV Peak Jeff 1.01 m/s [ 0.40 - 0.80 ] NY Peak Jeff 1.10 m/s TR Peak Jeff 2.48 m/s [ 1.00 - 2.80 ] TR Peak PG 25 mmHg RVSP 30.00 mmHg [ 10.00 - 36.00 ] E` 0.07 m/s E/E` 16.70 [ <= 10.00 ] PA Pressure 5.00 mmHg [ 10.00 - 36.00 ] 2D/MM Value Range Doppler Value Range - FINDINGS: Atrial Septum: Normal atrial septum. Left Ventricle: Normal left ventricular wall thickness. Reduced left ventricular cavity size. Hyperdynamic left ventricular function. No focal wall motion abnormalities. Impaired diastolic relaxation Grade I. Ejection Fraction is estimated to be 70 %. Left Atrium: The left atrium is normal in size. Right Ventricle: Normal right ventricular size. Normal right ventricular systolic function. Right Atrium: The right atrium is normal in size. Aortic Valve: Mild to moderate aortic stenosis. Valve area of 1.39 cm2. Aortic cusps appear mildly sclerotic. Aortic cusps appear mildly restricted. Mild to moderate aortic valve regurgitation. Mitral Valve: Mitral valve leaflets appear mildly thickened. Moderate mitral annular calcification. Mild mitral valve regurgitation. Pulmonic Valve: Normal structure of the pulmonic valve. Mild pulmonic regurgitation. Tricuspid Valve: Normal structure of the tricuspid valve. Normal right ventricular systolic pressure. Pericardium: Normal pericardium with no significant pericardial effusion. Aorta: Ascending aorta is normal. There is mild atherosclerosis in the aortic root. IVC: Dilated IVC without respiratory collapse consistent with elevated right atrial pressure (>15 mmHg). Pulmonary Artery: Pulmonary artery not well visualized. CONCLUSIONS: Normal left ventricular wall thickness. Reduced left ventricular cavity size. Hyperdynamic left ventricular function. No focal wall motion abnormalities. Impaired diastolic relaxation Grade I. Ejection Fraction is estimated to be >70 %. Normal right ventricular size. Normal right ventricular systolic function. Mitral valve leaflets appear mildly thickened. Moderate mitral annular calcification. Mild mitral valve regurgitation. Mild to moderate aortic stenosis. Valve area of 1.39 cm2. Aortic cusps appear mildly sclerotic. Aortic cusps appear mildly restricted. Mild to moderate aortic valve regurgitation. Normal structure of the tricuspid valve. Normal right ventricular systolic pressure. Normal pericardium with no significant pericardial effusion. Technically difficult study with limited views. Subcostal views suboptimal. Valves in general are poorly visualized. Electronically Signed By: Amber Joy MD 04/18/2025 2:38:53 PM CDT Procedure Note Amber Joy MD - 04/18/[address] [address] Echocardiogram Report Patient Name: TIM HAMMOND : 1935 Study Date: 04/18/2025 12:38:29 PM Sex: F Tech: AA Location: echo room 1 Ref Provider: JORGE A COLINDRES Height(Cm): BSA: Weight(Kg): Quality: Good Order Provider: JORGE A COLINDRES PROCEDURES: Echocardiographic Report: Transthoracic echocardiogram with complete 2D, M-Mode, and color Dopplerexamination. INDICATIONS: Aortic Stenosis and R01.1 Cardiac murmur, unspecified. MEASUREMENTS: 2D/MM Value Range Doppler ValueRange Estimated EF 70 % YENY Vmax 1.39cm2 LA Dimension MM 3.89 cm [ 2.70 - 3.80 ] AV Mean PG 22mmHg AoR Diam MM 3.19 cm [ 2.70 - 3.70 ] AV Peak Jeff 3.03 m/s[ 1.00 - 1.70 ] ACS MM 1.56 cm AV VTI 73.83cm LVOT Diam 2.07 cm LVOT Peak Jeff 1.25 m/s [ 0.70 - 1.10 ] LVOT VTI 33.65 cm MV E Peak Jeff 1.13 m/s [ 0.60 - 1.30 ] MV A Peak Jeff 1.79 m/s [ 1.00 - 1.20 ] MV Mean PG 5 mmHg MV PHT 101 msec [ 20 - 100 ] MVA 2.20 MV Decel Time 348 msec [ 104 - 258 ] PV Peak Jeff 1.01 m/s [ 0.40 - 0.80 ] NY Peak Jeff 1.10 m/s TR Peak Jeff 2.48 m/s [ 1.00 - 2.80 ] TR Peak PG 25 mmHg RVSP 30.00 mmHg [ 10.00 - 36.00 ] E` 0.07 m/s E/E` 16.70 [ <= 10.00 ] PA Pressure 5.00 mmHg [ 10.00 - 36.00 ] 2D/MM Value Range Doppler ValueRange - FINDINGS: Atrial Septum: Normal atrial septum. Left Ventricle: Normal left ventricular wall thickness. Reduced left ventricular cavitysize. Hyperdynamic left ventricular function. No focal wall motionabnormalities. Impaired diastolic relaxation Grade I. Ejection Fraction is estimated to be 70 %. Left Atrium: The left atrium is normal in size. Right Ventricle: Normal right ventricular size. Normal right ventricular systolicfunction. Right Atrium: The right atrium is normal in size. Aortic Valve: Mild to moderate aortic stenosis. Valve area of 1.39 cm2. Aortic cuspsappear mildly sclerotic. Aortic cusps appear mildly restricted. Mild to moderate aorticvalve regurgitation. Mitral Valve: Mitral valve leaflets appear mildly thickened. Moderate mitral annularcalcification. Mild mitral valve regurgitation. Pulmonic Valve: Normal structure of the pulmonic valve. Mild pulmonic regurgitation. Tricuspid Valve: Normal structure of the tricuspid valve. Normal right ventricular systolicpressure. Pericardium: Normal pericardium with no significant pericardial effusion. Aorta: Ascending aorta is normal. There is mild atherosclerosis in the aorticroot. IVC: Dilated IVC without respiratory collapse consistent with elevated rightatrial pressure (>15 mmHg). Pulmonary Artery: Pulmonary artery not well visualized. CONCLUSIONS: Normal left ventricular wall thickness. Reduced left ventricular cavitysize. Hyperdynamic left ventricular function. No focal wall motionabnormalities. Impaired diastolic relaxation Grade I. Ejection Fraction is estimated to be >70%. Normal right ventricular size. Normal right ventricular systolicfunction. Mitral valve leaflets appear mildly thickened. Moderate mitral annularcalcification. Mild mitral valve regurgitation. Mild to moderate aortic stenosis. Valve area of 1.39 cm2. Aortic cuspsappear mildly sclerotic. Aortic cusps appear mildly restricted. Mild to moderate aorticvalve regurgitation. Normal structure of the tricuspid valve. Normal right ventricular systolicpressure. Normal pericardium with no significant pericardial effusion. Technically difficult study with limited views. Subcostal viewssuboptimal. Valves in general are poorly visualized. Electronically Signed By: Amber Joy MD 04/18/2025 2:38:53 PM CDT [facility] Steve Colindres MD CV ECHO PROCEDURES Final R esult * (ABNORMAL) eGFR (04/14/2025 9:00 AM CDT) eGFR 30(L) >=60 mL/min/1. 73 m2 Comment: Interpretive Data [...] was last reviewed 2021. Testing performed by: [address] [address] Blood 04/14/2025 9:00 AM CDT 04/14/2025 2:36 PM CDT Jorge A Colindres MD LAB BLOOD ORDERABLES Final Result [address] Department [place] [address] * (ABNORMAL) Differential, auto (04/14/2025 9:00 AM CDT) Neutrophil abs 6.03 1.50 - 6.50 K/cumm Comment:Testing performed by : [address] [address] Imm gran abs 0.04 0.00 - 0.10 K/cumm [facility] Comment:Testing performed by : [address] [address] Lymphocyte abs 1.30 0.80 - 3.30 K/cumm [facility] Comment:Testing performed by : [address] [address] Monocyte abs 0.64 0.20 - 0.80 K/cumm [facility] Comment:Testing performed by : [address] [address] Eosinophil abs 1.11(H) 0.00 - 0.50 K/cumm [facility] Comment:Testing performed by : [address] [address] Basophil abs 0.10 0.00 - 0.10 K/cumm [facility] Comment:Testing performed by : [address], [address] Neutrophil pct 65.5 % [facility] Comment: Interpretive Data Percent cell count reference ranges are not reported, since discordance with absolute values may lead to misinterpretation of CBC data. Current Interpretive Data was last revised on 2017. Testing performed by: [address] [address] Imm gran pct 0.4 % [facility] Comment: Interpretive Data Percent cell count reference ranges are not reported, since discordance with absolute values may lead to misinterpretation of CBC data. Current Interpretive Data was last revised on 2017. Testing performed by: [address] [address] Lymphocyte pct 14.1 % [facility] Comment: Interpretive Data Percent cell count reference ranges are not reported, since discordance with absolute values may lead to misinterpretation of CBC data. Current Interpretive Data was last revised on 2017. Testing performed by: [address] [address] Monocyte pct 6.9 % [facility] Comment: Interpretive Data Percent cell count reference ranges are not reported, since discordance with absolute values may lead to misinterpretation of CBC data. Current Interpretive Data was last revised on 2017. Testing performed by: [address] [address] Eosinophil pct 12.0 % [facility] Comment: Interpretive Data Percent cell count reference ranges are not reported, since discordance with absolute values may lead to misinterpretation of CBC data. Current Interpretive Data was last revised on 2017. Testing performed by: [address] [address] Basophil pct 1.1 % [facility] Comment: Interpretive Data Percent cell count reference ranges are not reported, since discordance with absolute values may lead to misinterpretation of CBC data. Current Interpretive Data was last revised on 2017. Testing performed by: [address] [address] Blood 04/14/2025 9:00 AM CDT 04/14/2025 2:29 PM CDT us Jorge A Colindres MD LAB BLOOD ORDERABLES Final Result [address] Department [place] [address] * (ABNORMAL) CBC with auto differential (04/14/2025 9:00 AM CDT) [facility] WBC 9.22 3.80 - 9.90 K/cumm Comment:Testing performed by : [address], [address] Hgb 11.2(L) 11.9 - 15.5 g/dL [facility] Comment:Testing performed by : [address], [address] Hct 36.3 35.6 - 45.5 % [facility] Comment:Testing performed by : [address], [address] Plt 181 150 - 400 K/cumm [facility] Comment:Testing performed by : [address], [address] MPV 11.1 9.1 - 12.3 fL [facility] Comment:Testing performed by : [address], [address] RBC 3.77(L) 3.90 - 5.20 M/cumm [facility] Comment:Testing performed by : [address], [address] MCV 96.3 81.3 - 96.4 fL [facility] Comment:Testing performed by : [address], [address] MCH 29.7 27.1 - 33.3 pg [facility] Comment:Testing performed by : [address], [address] MCHC 30.9(L) 32.3 - 35.7 g/dL [facility] Comment:Testing performed by : [address], [address] RDW CV 14.0 11.1 - 14.9 % [facility] Comment:Testing performed by : [address], [address] RDW SD 49.8(H) 35.7 - 48.1 fL [facility] Comment:Testing performed by : [address], [address] NRBC abs 0.00 0.00 - 0.01 K/cumm [facility] Comment:Testing performed by : [facility] [address] [place] [address]., [address] Blood 04/14/2025 9:00 AM CDT 04/14/2025 2:29 PM CDT Jorge A Colindres MD LAB BLOOD ORDERABLES Final Result Performing Organization Address [facility] Co de Phone Number [facility] [id number] [facility] Department [place] [employer] [place] [address] * PTH (04/14/2025 9:00 AM CDT) PTH 17 15 - 65 pg/mL Comment:Testing performed by : [facility], [address] [place] [address]., [address] Blood 04/14/2025 9:00 AM CDT 04/14/2025 2:29 PM CDT Jorge A Colindres MD LAB BLOOD ORDERABLES Final Result Performing Organization Address [facility] de Phone Number [facility] [id number] [facility] Department [place] [employer] [place] [address] * Lipid panel (04/14/2025 9:00 AM CDT) Cholesterol 187 30 - 199 mg/dL Comment: Interpretive Data [...] last revised on 2018. Testing performed by: [address] [address] Triglycerides 136 <=149 mg/dL [facility] Comment: Interpretive Data Ages < [...] last revised on 2018. Testing performed by: [facility], [address] [place] [address]., [address] HDL 52 >=40 mg/dL [facility] Comment: Interpretive Data Ages [...] last revised on 2018. Testing performed by: [facility], [address] [place] [address]., [address] LDL, calculated 111 <=129 mg/dL [facility] Comment: Interpretive Data Ages [...] last revised on 2024. Testing performed by: [address] [address] Non-HDL Cholesterol 135 mg/dL [facility] Comment: Interpretive Data Ages < or = [...] last revised on 2018. Testing performed by: [address] [address] Chol/HDL ratio 4 [facility] Comment:Testing performed by : [address] [address] Blood 04/14/2025 9:00 AM CDT 04/14/2025 2:29 PM CDT Jorge A Colindres MD LAB BLOOD ORDERABLES Final Result [facility] [address] Department [place] [address] * (ABNORMAL) Comprehensive metabolic panel (04/14/2025 9:00 AM CDT) Sodium 143 135 - 145 mmol/L Comment:Testing performed by : [address] [address] Potassium, pl 4.4 3.3 - 4.9 mmol/L [facility]ANY Comment:Testing performed by : [address] [address] Chloride 107 97 - 110 mmol/L [facility] Comment:Testing performed by : [address] [address] CO2 25 22 - 32 mmol/L [facility] Comment:Testing performed by : [address] [address] Anion gap 11 2 - 15 mmol/L [facility] Comment:Testing performed by : [address] [address] BUN 40(H) 6 - 25 mg/dL [facility] Comment:Testing performed by : [address] [address] Creatinine 1.66(H) 0.60 - 1.10 mg/dL [facility] Comment:Testing performed by : [address], [address] Glucose 91 70 - 199 mg/dL [facility] Comment: Interpretive Data Fasting glucose >/= 126 mg/dl is diagnostic for diabetes. Fasting is defined as no caloric intake for at least 8 hours. Fasting glucose between 100 mg/dl to 125 mg/dl is diagnostic of prediabetes. In a patient with classic symptoms of hyperglycemia or hyperglycemic crisis, a random glucose >/= 200 mg/dl is diagnostic for diabetes. In the absence of unequivocal hyperglycemia, results should be confirmed by repeat testing. The classification and Diagnosis of Diabetes Diabetes Care 2021; 46: S19-S40. Current interpretive data was last revised 2022. Testing performed by: [address] [address] Calcium 10.1 8.5 - 10.3 mg/dL CERNER CH Comment:Testing performed by : [address], [address] Bilirubin, total 0.3 0.1 - 1.2 mg/dL CERNER CH Comment:Testing performed by : [address] [address] Protein, pl 7.0 6.5 - 8.5 g/dL CERNER CH Comment:Testing performed by : [address] [address] Albumin 4.2 3.5 - 5.0 g/dL CERNER CH Comment:Testing performed by : [address], [address] Alk phos 65 40 - 130 Units/L CERNER CH Comment:Testing performed by : [address], [address] ALT 12 7 - 45 Units/L HANY Comment:Testing performed by : [facility], [address] [place] [address]., [address] AST 23 10 - 45 Units/L HANY Comment:Testing performed by : [facility], [address] [place] [address]., [address] Blood 04/14/2025 9:00 AM CDT 04/14/2025 2:29 PM CDT Jorge A Colindres MD LAB BLOOD ORDERABLES Final Result [facility] [id number] [place] [address] Department [place] [address] * SCAN - LABS (03/24/2025 9:20 AM CDT) Provider Scanning Final Result * Dexa Axial Skeleton Bone Density 1 or 2 Site (02/06/2024 10:28 AM CDT) Anatomical Region Laterality Modality Body N/A Other 02/06/2024 5:47 PM CDT Narrative 02/06/2024 5:48 PM CDT EXAM DESCRIPTION: DEXA AXIAL SKELETON BONE DENSITY 1 OR MORE SITES REASON FOR STUDY: 89 y/o year old F with given history of: 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 MF: ALOK Report ID: [id number] Reading Location: [place] [address] [facility] Steve Colindres MD IMG DXA PROCEDURES Final R esult from Last 3 Months or Most Recently Relevant to Health Maintenance Insurance MEDICARE RAILROAD [facility] CHOICE PLUS [facility] [place] [facility] [place] [address] [facility] MEDICARE RAILROAD [facility] Address: [facility] [address] [place] [address] [facility] Advance Directives For more information, please contact: [phone] * Full Code (Latest Code Status on File) Date Activated Date Inactivated Comments 06/15/2023 9:39 PM 06/20/2023 10:44 PM * Full Code Date Activated Date Inactivated Comments 04/14/2023 4:16 PM 04/17/2023 8:39 PM * Full Code Date Activated Date Inactivated Comments 02/16/2021 10:47 AM 02/20/2021 7:21 PM * Full Code Date Activated Date Inactivated Comments 02/14/2021 6:30 AM 02/16/2021 10:47 AM Care Teams Early Education Teacher Relationship Specialty Start Date End Date Jorge A Colindres MD [address] [place] [address] PCP - General 10/28/16 Bambi Santos MD [address] [place] [address] Consulting Physician Cardiology 03/23/18 Walt Castellanos MD [address] [place] [address] Surgeon Ophthalmology 08/21/19 Cristiane Mireles MD [address] [facility] [address] [place] [address] Consulting Physician Critical Care Med 06/18/20 [place] [address] [facility] [address] [place] [address] Consulting Physician Gastroenterology 02/19/21 Dariela Edward DO [address] [facility] [address] LJ Gupta [facility] [address] [place] [address] Consulting Physician Otolaryngology 06/20/23
--- OUTSIDE RECORDS SUMMARY | 2025-06-20 13:31 | XMS_ITS | Encounter Summary ---
Author Organization [facility] Address [address] [facility] [place] [address] Phone Care Team Providers Care Superintendent Track Name Role Phone Jorge A Colindres MD Primary Care Provider [phone] Bambi Santos MD Unavailable [phone] Walt Castellanos MD Unavailable [phone] Cristiane Mireles MD Unavailable [phone] Delilah Zavala MD Unavailable [phone] Sol Hannah LPN Unavailable [phone] Dariela Edward DO Unavailable [phone] Encounter Details Date Type Department Care Team (Late st Contact Info) Description 03/30/2022 Orders Only [facility] [address] [facility] [place] [address] Scanning, Provider Social History Tobacco [...] week 02/15/2021 How often do you attend [facility] or religion services? Never 02/15/2021 Do you belong to any clubs o r organizations such as quaker groups, unions, fraternal or athletic groups, or [...] slept in a fdc (including now)? No 02/15/2021 Comments No Sex and Gender Information Value Date Recorded Sex Assigned at Not on file Legal Sex Female 6:07 PM RATING EXAMINER Gender Identity Not on file Sexual Orientation [...] documented as of this encounter Care Teams Superintendent Track Relationship Specialty Start Date End Date Jorge A Colindres MD [address] [place] [address] PCP - General 10/28/16 Bambi Santos MD [address] [place] [address] Consulting Physician Cardiology 03/23/18 Walt Castellanos MD [address] [place] [address] Surgeon Ophthalmology 08/21/19 Cristiane Mireles MD [address] [email or web address] [address] [place] [address] Consulting Physician Critical Care Med 06/18/20 [place] [address] [address] [facility] [[email or web address] [address] [place] [address] Consulting Physician Gastroenterology 02/19/21 Sol Hannah LPN [address] [facility] [address] [place] [address] Wood Experimental Mechanic 05/10/23 06/15/23 Dariela Edward DO [address] [facility] [address] [address] Consulting Physician Otolaryngology 06/20/23 documented as of this encounter
--- OUTSIDE RECORDS SUMMARY | 2025-06-20 13:31 | XMS_ITS | Encounter Summary ---
Author Organization [facility] Address [address] [address] Phone Care Team Providers Care Car Lot Attendant Name Role Phone Jorge A Colindres MD Primary Care Provider [phone] Bambi Santos MD Unavailable [phone] Walt Castellanos MD Unavailable [phone] Cristiane Mireles MD Unavailable [phone] Delilah Zavala MD Unavailable [phone] Sol Hannah LPN Unavailable [phone] Dariela Edward DO Unavailable [phone] Encounter Details Date Type Department Care Team (Late st Contact Info) Description 02/27/2021 Orders Only [facility] [address] [place] [address] Scanning, Provider Social History Tobacco [...] week 02/15/2021 How often do you attend [facility] or jewish services? Never 02/15/2021 Do you belong to any clubs o r organizations such as caodaism groups, unions, fraternal or athletic groups, or [...] place to sleep or slept in a senior living (including now)? No 02/15/2021 Comments No Sex and Gender Information Value Date Recorded Sex Assigned at Not on file Legal Sex Female 6:07 PM FIRER GLOST KILN Gender Identity Not on file Sexual Orientation Not on file documented as of this encounter Functional Status * BP Location Answer Date of Assessment Author Left arm 03/01/2021 2:47 PM CDT Janet Jacinto MA * BP Location Answer Date of Assessment Author Left arm 03/01/2021 2:47 PM CDT Janet Jacinto MA documented as of this encounter Plan of [...] COVID: Suspected 06/11/2021 06/11/2021 06/11/2021 4:11 PM FIRER GLOST KILN COVID: Suspected 06/14/2021 06/14/2021 06/14/2021 4:59 PM FIRER GLOST KILN RSV, droplet 06/14/2021 06/14/2021 06/21/2021 3:05 AM FIRER GLOST KILN COVID: Suspected 03/22/2022 03/22/2022 03/22/2022 1:59 PM CDT COVID19 03/22/2022 03/22/2022 04/01/2022 3:05 AM CDT COVID: Recovered Comment:Added based on recent COVID infection. 04/01/2022 04/05/2022 07/30/2022 3:[address] documented as of this encounter Care Teams Car Lot Attendant Relationship Specialty Start Date End Date Jorge A Colindres MD [address] [place] [address] PCP - General 10/28/16 Bambi Santos MD [address] [place] [address] Consulting Physician Cardiology 03/23/18 Walt Castellanos MD [address] [place] [address] Surgeon Ophthalmology 08/21/19 Cristiane Mireles MD [address] [place] [address] Consulting Physician Critical Care Med 06/18/20 [place] [address] [facility] [address] [place] [address] Consulting Physician Gastroenterology 02/19/21 Sol Hannah LPN [address] [place] [address] [address] [place] [address] Associate Team Physician 05/10/23 06/15/23 Dariela Edward DO [address] [place] [address] [address] [place] [address] Consulting Physician Otolaryngology 06/20/23 documented as of this encounter
--- OUTSIDE RECORDS SUMMARY | 2025-06-20 13:31 | XMS_ITS | Clinical Summary ---
Author Organization [facility] Address [address] [facility] [place] [address] Care Team Providers Care Director Of Quality Control Name Role Phone Denzel Beckford MD Unavailable [phone] Jorge A Colindres MD Primary Care Provider [phone] Source Comments [facility],non-owned Affiliates and Associated Physician Practices is amultiple site organization consisting of ambulatory clinics and hospital sitesin [place], [place], [place] and [place]. This disclosure is being madepursuant to the Care Everywhere program and may not contain all information available regarding this patient. Last updated 18.[facility] Allergies Active Allergy Reactions Criticality Noted Date [...] vitamin D, ergocalciferol , (Drisdol) 1.25 MG (31724 UT) capsule Take 1 (one) capsule by [...] care, and heating? Not very hard 04/18/2024 [facility] [place] of Occupat ional Health - Occupational Stress [...] place to sleep or slept in a detention (including now)? No 04/18/2024 Comments Unknown Sex and Gender Information Value Date Recorded Sex Assigned at Not on file Legal Sex Female 9:38 AM VERTICAL BORER Gender Identity Not on file Sexual Orientation [...] (2 - Td or Tdap) 05/19/2018 05/19/2008 DEPRESSION SCREENING 07/31/2024 COVID-19 VACCINE ( season) 2025 06/27/2021, 10/07/2020, 09/09/2020 INFLUENZA VACCINE (#1) 2025 , 04/12/2024, 05/11/2023, [...] to complete this [place] [address] MEDICARE [facility] MEDIC[facility] Advance Directives Documents on File Type Date Recorded Patient Parking Supervisor Expl anation Adv Directive/Living Will/POA 03/09/2012 2:35 PM * Full Code (Latest Code Status on File) Date Activated Date Inactivated Comments 04/18/2024 3:08 PM 04/20/2024 6:45 PM * FULL RESUSCITATION Date Activated Date Inactivated Comments 03/05/2012 2:02 PM 03/08/2012 1:35 PM * FULL RESUSCITATION Date Activated Date Inactivated Comments 06/29/2011 1:53 PM 07/01/2011 10:25 PM Care Teams Director Of Quality Control Relationship Specialty Start Date End Date Jorge A Colindres MD [address] [address] PCP - General Internal Medicine 03/08/24 [place] [address] [place] [address] Orthopedic Surgery 02/24/12
--- OUTSIDE RECORDS SUMMARY | 2025-06-20 13:31 | XMS_ITS | Clinical Summary ---
Author Organization [facility] Address [address] [facility] [place] [address] Phone Care Team Providers Care Route Cdl Driver Name Role Phone Kvng Smith DPM Unavailable [phone] Jorge A Colindres MD Primary Care Provider [phone] Allergies Active Allergy Reactions Criticality Noted Date [...] Virus (HCV) Screening 1935 TdaP Immunization 1935 Varicella Immunization (1 of 2 - 13+ 2-dose series) 1950 Zoster Immunization (1 of 2) 1987 Medicare Initial AWV [id number] 12/29/2002 Respiratory Syncytial Virus (RSV) Immunization (Adult) (1 - 1-dose 75+ series) 01/06/2012 Influenza Immunization (#1) 03/31/202504/30, 05/18/2022, 05/18/2021, Additional history exists SARS-COV-2 Immunization ( season) 2025 06/27/2021, 10/07/2020, 09/09/2020 DTaP/Tdap/Td Immunization Discontinued 05/19/2008 [...] this topic Insurance MEDICARE RAILROAD Care Teams Route Cdl Driver Relationship Specialty Start Date End Date Jorge A Colindres MD [address] [place] [address] PCP - General Internal Medicine 01/13/16 Kvng Smith DPM Podiatry 01/13/16
--- OUTSIDE RECORDS SUMMARY | 2025-06-20 13:31 | XMS_ITS | Encounter Summary ---
Author Organization [facility] Healthcare Address [address] [place] [address] Care Team Providers Care Skiver Uppers Or Linings Name Role Phone JensJorge A MD Primary Care Provider [phone] Bambi Santos MD Unavailable [phone] Walt Castellanos MD Unavailable [phone] Cristiane Mireles MD Unavailable [phone] Delilah Zavala MD Unavailable [phone] Sol Hannah LPN Unavailable [phone] Dariela Edward DO Unavailable [phone] Encounter Details Date Type Department Care Team (Late st Contact Info) Description 01/12/2021 Telephone [facility] [address] [place] [address] Vandana Queen, RT Social History Tobacco Use [...] on file Legal Sex Female 6:07 PM REAL ESTATE COORDINATOR Gender Identity Not on file Sexual Orientation Not on file documented as of this encounter Plan of Treatment Not on file documented as of this encounter Visit Diagnoses Not on filedocumented in this encounter Additional Health Concerns Infection Onset Date Last Indicated Resolved Time COVID: Suspected 06/11/2021 06/11/2021 06/11/2021 4:11 PM REAL ESTATE COORDINATOR COVID: Suspected 06/14/2021 06/14/2021 06/14/2021 4:59 PM REAL ESTATE COORDINATOR RSV, droplet 06/14/2021 06/14/2021 06/21/2021 3:05 AM REAL ESTATE COORDINATOR COVID: Suspected 03/22/2022 03/22/2022 03/22/2022 1:59 PM CDT COVID19 03/22/2022 03/22/2022 04/01/2022 3:05 AM CDT COVID: Recovered Comment:Added based on recent COVID infection. 04/01/2022 04/05/2022 07/30/2022 3:[address] documented as of this encounter Care Teams Skiver Uppers Or Linings Relationship Specialty Start Date End Date Jorge A Colindres MD [address] [place] [address] PCP - General 10/28/16 Bambi Santos MD [address] [place] [address] Consulting Physician Cardiology 03/23/18 Walt Castellanos MD [address] [place] [address] Surgeon Ophthalmology 08/21/19 Cristiane Mireles MD [address] [facility] [address] [place] [address] Consulting Physician Critical Care Med 06/18/20 [place] [address] [address] [facility] [address] [address] Consulting Physician Gastroenterology 02/19/21 Sol Hannah, GEOTHERMAL OPERATIONS ENGINEER [address] [facility] [address] [place] [address] High School Special Education Teacher 05/10/23 06/15/23 Dariela Edward DO [address] [place] [address] [address] [place] [address] Consulting Physician Otolaryngology 06/20/23 documented as of this encounter
== END 2025-06-20 13:29 | disposition home or self-care (01) ==
LOC: ANHFOHIMG 13:29
PROVIDERS: PCP Internal Medicine Infectious Disease; Visit Provider Internal Medicine
DX: M81.0 Age-related osteoporosis without current pathological fracture (principal)
CPT/HCPCS: 77080

== ENCOUNTER 2025-07-30 11:03 | Outpatient (CLI) | payer MEDICARE, OTHER, SELFPAY ==
--- OUTSIDE RECORDS SUMMARY | 2025-07-30 11:30 | XMS_ITS | Encounter Summary ---
Author Organization [facility] Healthcare Address [address] [place] [address] Care Team Providers Care Prescription Eyeglass Maker Name Role Phone JensJorge A MD Primary Care Provider [phone] Bambi Santos MD Unavailable [phone] Walt Castellanos MD Unavailable [phone] Cristiane Mireles MD Unavailable [phone] Delilah Zavala MD Unavailable [phone] Sol Hannah LPN Unavailable Dariela Edward DO Unavailable [phone] Encounter Details Date Type Department Care Team (Late st Contact Info) Description 01/12/2021 Telephone [facility] [address] [place] [address] Vandana Queen, RT Social History Tobacco Use [...] on file Legal Sex Female 6:07 PM CORD SPLICER Gender Identity Not on file Sexual Orientation Not on file documented as of this encounter Plan of Treatment Not on file documented as of this encounter Visit Diagnoses Not on filedocumented in this encounter Additional Health Concerns Infection Onset Date Last Indicated Resolved Time COVID: Suspected 06/11/2021 06/11/2021 06/11/2021 4:11 PM CORD SPLICER COVID: Suspected 06/14/2021 06/14/2021 06/14/2021 4:59 PM CORD SPLICER RSV, droplet 06/14/2021 06/14/2021 06/21/2021 3:05 AM CORD SPLICER COVID: Suspected 03/22/2022 03/22/2022 03/22/2022 1:59 PM CDT COVID19 03/22/2022 03/22/2022 04/01/2022 3:05 AM CDT COVID: Recovered Comment:Added based on recent COVID infection. 04/01/2022 04/05/2022 07/30/2022 3:[address] documented as of this encounter Care Teams Prescription Eyeglass Maker Relationship Specialty Start Date End Date Jorge A Colindres MD [address] [place] [address] PCP - General 10/28/16 Bambi Santos MD [address] [place] [place] [address] Consulting Physician Cardiology 03/23/18 Walt Castellanos MD [address] [place] [address] Surgeon Ophthalmology 08/21/19 Cristiane Mireles MD [address] [facility] [address] [place] [address] Consulting Physician Critical Care Med 06/18/20 [place] [address] [address] [facility] [address] [address] Consulting Physician Gastroenterology 02/19/21 Sol Hannah, TRANSFER CONTROLLER [address] [facility] [address] [place] [address] Computer Technologist 05/10/23 06/15/23 Dariela Edward DO [address] [place] [address] [address] [place] [address] Consulting Physician Otolaryngology 06/20/23 documented as of this encounter
--- OUTSIDE RECORDS SUMMARY | 2025-07-30 11:30 | XMS_ITS | Clinical Summary ---
Author Organization [facility] Virtual Care Address [address] [place] [address] Phone Care Team Providers Care Reading Coach Name Role Phone Jorge A Colindres MD Primary Care Provider [phone] Bambi Santos MD Unavailable [phone] Walt Castellanos MD Unavailable [phone] Cristiane Mireles MD Unavailable [phone] Delilah Zavala MD Unavailable [phone] Dariela Edward DO Unavailable [phone] Allergies Active Allergy Reactions Criticality Noted Date [...] 2 (two) times a week 04/17/20 Active acetaminophen (TYLENOL) 325 mg tabletIndication s:Pain Take [...] 04/27/20 24 Active denosumab (PROLIA) 60 mg/mL syringeIndicatio ns:postmenopausa l osteoporosis and high fracture risk Inject 1 mL (60 mg total) under the skin once for 1 dose 1 mL 1 08/09/19 25 Active amLODIPine (NORVASC) 5 mg tablet Take 1 tablet (5 mg total) by mouth daily 30 tablet 11 12/18/19 25 026 Active traMADoL (ULTRAM) 50 mg tablet Take 1 tablet (50 mg total) by mouth 2 (two) times a day 40 tablet 12/18/19 25 Active sertraline (ZOLOFT) 50 mg tabletIndication s:Depression, unspecified depression type Take 2 tablets (100 mg total) by mouth daily 180 tablet 1 02/22/20 25 Active losartan (COZAAR) 100 mg tabletIndication s:Hypertension, essential TAKE 1 TABLET(100 MG) BY MOUTH DAILY 90 tablet 02/28/20 25 Active mirtazapine (REMERON) 15 mg tabletIndication s:Other depression TAKE 1 TABLET(15 MG) BY MOUTH EVERY NIGHT 30 tablet 2 05/19/20 25 Active hydrALAZINE (APRESOLINE) 25 mg tabletIndication s:Hypertension, essential TAKE 1 TABLET BY MOUTH TWICE DAILY 180 tablet 1 07/01/20 25 Active hydrALAZINE (APRESOLINE) 10 mg tabletIndication s:hypertension Take 1 tablet by mouth 3 (three) times a day patient taking 25mg 3x daily Discontinued(D o se adjustment) hydrALAZINE (APRESOLINE) 25 mg tabletIndication s:Hypertension, essential TAKE 1 TABLET BY MOUTH TWICE DAILY 180 tablet 1 12/31/19 25 025 Discontinued Active Problems Problem Noted Date Diagnosed [...] 04/12/2024 Assessment & Plan (08/07/2024 12:56 PM NEGATIVE CUTTER): CHRONIC AND STABLE REMERON HS FOR APPETITE [...] AORTIC STENOSIS F/U DR [facility] AT [facility] HYPERCALCEMIA WITH AN ELEVATED INTACT PTH, NL [...] 06/15/2022 Assessment & Plan (06/15/2022 9:44 AM NEGATIVE CUTTER): Chronic problem Please refer to note for [...] endurance, patient prefers 4-wheel scooter Orders for Fadmuo Hammond to arrange FOR SCOOTER: Follow up [...] (08/09/2019): Added automatically from request for surgery [id number] 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 Lungs clear. 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 Advised this is likely from anxiety and poor appetite. See plan for anxiety/depression above. Non-rheumatic mitral regurgitation 05/08/2019 Caregiver role strain 02/12/2019 Assessment & Plan (06/15/2022 9:57 AM NEGATIVE CUTTER): Chronic problem Patient's has dementia - patient [...] if haven't heard from home health social worker psychiatric - will have office staff reach out [...] Hypercholesterolemia Assessment & Plan (08/07/2024 12:55 PM NEGATIVE CUTTER): FLP AND LDL WERE REVIEWED GOAL LDL [...] diet Assessment & Plan (08/07/2024 12:55 PM NEGATIVE CUTTER): GOAL BP IS 130/80 OR UNDER LOW [...] 05/26/2023 Assessment & Plan (06/15/2022 9:49 AM NEGATIVE CUTTER): Acute problem, patient reports only one occurrence [...] breath, dizziness, weakness/fatigue to the office or pss delivery professional Follow up with cardiology as recommended Follow up with PT as recommended and able Follow up with Dr. Colindrse as scheduled or sooner if necessary Rectal bleeding 02/14/2021 05/26/2023 Encounters Date Type Department Care Team Description 07/01/2025 Orders Only [facility] Health Information Management [address] [place] [id number] Scanning, Provider from Last 3 Months Immunizations [...] materials from doctor or pharmacy Never 07/10/2023 [facility] Utilities Answer Date Recorded In the [...] often do you attend chur ch or latter day services? Never 06/16/2023 Do you belong to [...] slept in a jail (including now)? No 06/16/2023 Personal Safety Answer [...] on file Legal Sex Female 6:07 PM NEGATIVE CUTTER Gender Identity Not on file Sexual Orientation [...] history exists Well Visit 65+ 12/17/2025 12/17/2024, 0509/2023, 09/06/2022, Additional history exists Osteoporosis Screening-Bone Density Scan 02/05/2026 02/06/2024, 01/30/2023, 01/13/2021, Additional history exists Depression Screening 04/16/2026 04/16/2025, 12/01/2023, 04/14/2023, Additional history exists Pneumococcal vaccine 65+ Completed 01/15/2016, 04/01 Procedures Procedure Name Priority Date/Time Associated Diagnosis Comments SCAN - RADIOLOGY/IMAGING 07/01/2025 9:23 AM NEGATIVE CUTTER DEXA AXIAL SKELETON BONE DENSITY 1 OR MORE SITES Schedule Routine, Read Routine (OP Routine) 02/06/2024 10:28 AM CDT Osteoporosis, unspecified osteoporosis type, unspecified pathological fracture presence from Last 3 Months or Most Recently Relevant to Health Maintenance Results * SCAN - RADIOLOGY/IMAGING (07/01/2025 9:23 AM NEGATIVE CUTTER) Anatomical Region Laterality Modality Other us Provider Scanning Final Result * Dexa Axial Skeleton Bone Density 1 or 2 Site (02/06/2024 10:28 AM CDT) Anatomical Region Laterality Modality Body N/A Other 02/06/2024 5:47 PM CDT Narrative 02/06/2024 5:48 PM CDT EXAM DESCRIPTION: DEXA AXIAL SKELETON BONE DENSITY 1 OR MORE SITES REASON FOR STUDY: 89 y/o year old F with given history of: Osteoporosis screening postmenopausal Nutrition Director/Model: Intiza (S/N [id number]) CLINICAL INFORMATION: Current height: 62 inches Maximum [...] Tian Mckinney M.D. MF: ALOK Report ID: [id number] Reading Location: [address] Note Tian Mckinney MD - 02/06/2024 EXAM DESCRIPTION: DEXA AXIAL SKELETON BONE DENSITY 1 OR MORE SITES REASON FOR STUDY: 89 y/o year old F with given history of:Osteoporosis screening postmenopausal Nutrition Director/Model: Mass Vector SL (S/N [id number]) CLINICAL INFORMATION: Current height: 62 inches Maximum [...] Tian Mckinney M.D. MF: ALOK Report ID: [id number] Reading Location: [id number] Jorge A Steve Colindres MD IMG DXA PROCEDURES Final R esult from Last 3 Months or Most Recently Relevant to Health Maintenance Insurance MEDICARE RAILROAD [facility] CHOICE PLUS MEDICARE RAILROAD [facility] MEDICARE RAILROAD [facility] MEDICARE RAILRO[address] [address] Member Subscriber Plan / Payer (Ef fective 2022-Present) Name:Fadumo Hammond Relation to Subscriber:Spouse Name:WHITNEY HAMMOND Date of :1934 (Home) Address: [address] [place] [address] Payer ID:[id number] (NAIC) Type:COMMERCIAL Address: [facility] [id number] [place] [id number] Advance Directives For more information, please contact: [phone] * Full Code (Latest Code Status on File) Date Activated Date Inactivated Comments 06/15/2023 9:39 PM 06/20/2023 10:44 PM * Full Code Date Activated Date Inactivated Comments 04/14/2023 4:16 PM 04/17/2023 8:39 PM * Full Code Date Activated Date Inactivated Comments 02/16/2021 10:47 AM 02/20/2021 7:21 PM * Full Code Date Activated Date Inactivated Comments 02/14/2021 6:30 AM 02/16/2021 10:47 AM Care Teams Reading Coach Relationship Specialty Start Date End Date Jorge A Colindres MD [address] [place] [address] PCP - General 10/28/16 Bambi Santos MD [address] [place] [address] Consulting Physician Cardiology 03/23/18 Walt Castellanos MD [address] [place] [address] Surgeon Ophthalmology 08/21/19 Cristiane Mireles MD [address] [facility] [address] [place] [address] Consulting Physician Critical Care Med 06/18/20 [place] [address] [facility] [address] [place] [address] Consulting Physician Gastroenterology 02/19/21 Dariela Edward DO [address] [facility] [address] LJ Gupta [facility] [address] [place] [address] Consulting Physician Otolaryngology 06/20/23
--- OUTSIDE RECORDS SUMMARY | 2025-07-30 11:30 | XMS_ITS | Encounter Summary ---
Author Organization [facility] Address [address] [place] [address] Phone Care Team Providers Care Executive Legal Secretary Name Role Phone Jorge A Colindres MD Primary Care Provider [phone] Bambi Santos MD Unavailable [phone] Walt Castellanos MD Unavailable Cristiane Mireles MD Unavailable [phone] Delilah Zavala MD Unavailable [phone] Sol Hannah LPN Unavailable [phone] Dariela Edward DO Unavailable [phone] Encounter Details Date Type Department Care Team (Late st Contact Info) Description 02/27/2021 Orders Only [facility] [address] [place] [address] Scanning, Provider Social History Tobacco [...] week 02/15/2021 How often do you attend [facility] or jainism services? Never 02/15/2021 Do you belong to any clubs o r organizations such as yazidi groups, unions, fraternal or athletic groups, or [...] place to sleep or slept in a skilled nursing (including now)? 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 04/01/2022 04/05/2022 07/30/2022 3:[address] documented as of this encounter Care Teams Executive Legal Secretary Relationship Specialty Start Date End Date Jorge A Colindres MD [address] [place] [address] PCP - General 10/28/16 Bambi Santos MD [address] [place] [address] Consulting Physician Cardiology 03/23/18 Walt Castellanos MD [address] [place] [id number] Surgeon Ophthalmology 08/21/19 Cristiane Mireles MD [address] [address] Consulting Physician Critical Care Med 06/18/20 [place] [address] [facility] [address] [place] [address] Consulting Physician Gastroenterology 02/19/21 Sol Hannah LPN [address] [place] [address] [address] [place] [address] Quality Cloth Tester 05/10/23 06/15/23 Dariela Edward DO 4 [facility] [address] [facility] [address] [place] [address] Consulting Physician Otolaryngology 06/20/23 documented as of this encounter
--- OUTSIDE RECORDS SUMMARY | 2025-07-30 11:30 | XMS_ITS | Encounter Summary ---
Author Organization [facility] Address [address] [place] [address] Phone Care Team Providers Care Washing Machine Striper Name Role Phone Jorge A Colindres MD Primary Care Provider [phone] Bambi Santos MD Unavailable [phone] Walt Castellanos MD Unavailable [phone] Cristiane Mireles MD Unavailable [phone] Delilah Zavala MD Unavailable [phone] Sol Hannah LPN Unavailable [phone] Dariela Edward DO Unavailable Encounter Details Date Type Department Care Team (Late st Contact Info) Description 03/30/2022 Orders Only [facility] [address] [place] [address] Scanning, Provider Social History Tobacco [...] How often do you attend [facility] or religion services? Never 02/15/2021 Do [...] place to sleep or slept in a ch[facility] (including now)? 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 Gender Identity Not on file Sexual Orientation [...] documented as of this encounter Care Teams Washing Machine Striper Relationship Specialty Start Date End Date Jorge A Colindres MD [address] [place] [address] PCP - General 10/28/16 Bambi Santos MD [address] [place] [address] Consulting Physician Cardiology 03/23/18 Walt Castellanos MD [address] [place] [address] Surgeon Ophthalmology 08/21/19 Cristiane Mireles MD [address] [facility] [address] [place] [address] Consulting Physician Critical Care Med 06/18/20 [place] [address] [address] [facility] [address] [place] [address] Consulting Physician Gastroenterology 02/19/21 Sol Hannah LPN [address] [facility] [address] [place] [address] Facs Teacher 05/10/23 06/15/23 Dariela Edward DO [address] [facility] [address] [address] Consulting Physician Otolaryngology 06/20/23 documented as of this encounter
--- OUTSIDE RECORDS SUMMARY | 2025-07-30 11:30 | XMS_ITS | Clinical Summary ---
Author Organization [facility] Address [address] [facility], [place] [address] Phone Care Team Providers Care Rn Surgery Name Role Phone Kvng Smith DPM Unavailable [phone] Jorge A Colindres MD Primary Care Provider [phone] Allergies Active Allergy Reactions Criticality Noted Date [...] 1935 Zoster Immunization (1 of 2) 1987 Medicare [...] complete this topic Human Papillomavirus (HPV) Immunization (No Doses Required) Completed Meningococcal Immunization (ACWY) Aged Out No longer eligible based on patient's age to complete this topic Rotavirus Immunization Aged Out No lo nger eligible based on patient's age to complete this topic Insurance MEDICARE RAILROAD Care Teams Rn Surgery Relationship Specialty Start Date End Date Jorge A Colindres MD [address] [place] [address] PCP - General Internal Medicine 01/13/16 Kvng Smith DPM Podiatry 01/13/16
--- OUTSIDE RECORDS SUMMARY | 2025-07-30 11:30 | XMS_ITS | Clinical Summary ---
Author Organization [facility] Address [address] [address] Care Team Providers Care National Van Truck Driver Name Role Phone Unavailable Primary Care Provider [...] Completed 01/15/2016 , 04/21/[address] [place] [address] MEDICARE RAILListen Up [facility] [employer] PPO [id number]
[2025-07-30 11:59] LABS: Total Protein Urine Random 31 mg/dL; Ur Ttl Prot Creatinine Ratio 0.34 mg/mg (0-0.20)
[2025-07-30 12:04] LABS: Alanine Aminotransferase 13 U/L (6-35); Albumin Level 4.3 g/dL (3.5-5.1); Alkaline Phosphatase 61 U/L (38-126); Anion Gap 8 mmol/L (4-12); Aspartate Amino Transferase 25 U/L (14-36); Bilirubin,Total 0.7 mg/dL (0.2-1.3); Blood Urea Nitrogen 43 mg/dL (7-17); Calcium 9.7 mg/dL (8.4-10.2); Carbon Dioxide 26 mmol/L (22-30); Chloride 106 mmol/L (98-107); Estimated Glomerular Filt Rate 28; Glucose 85 mg/dL (65-110); Magnesium 2.1 mg/dL (1.6-2.3); Potassium 4.6 mmol/L (3.4-5.0); Sodium 140 mmol/L (137-145); Total Protein 7.3 g/dL (6.3-8.2)
[2025-07-30 12:16] LABS: Parathyroid Intact 20.7 pg/mL (14.5-75.2)
[2025-07-30 12:21] LABS: Free T4 Free Thyroxine 1.30 ng/dL (0.78-2.19)
[2025-07-30 12:39] LABS: Thyroid Stimulating Hormone 2.730 uIU/mL (0.465-4.680)
[2025-08-01 14:08] LABS: Calcium, Ionized 5.2 mg/dL (4.5-5.6)
== END 2025-07-30 11:04 | disposition home or self-care (01) ==
PROVIDERS: PCP Internal Medicine Infectious Disease; Referring Provider Internal Medicine Nephrology; Visit Provider Internal Medicine
DX: M81.0 Age-related osteoporosis without current pathological fracture (principal); E55.9 Vitamin D deficiency, unspecified; E04.1 Nontoxic single thyroid nodule; I12.9 Hypertensive chronic kidney disease with stage 1 through stage 4 chronic kidney disease, or unspecified chronic kidney disease; R06.00 Dyspnea, unspecified; N18.4 Chronic kidney disease, stage 4 (severe); N25.81 Secondary hyperparathyroidism of renal origin; E21.3 Hyperparathyroidism, unspecified
CPT/HCPCS: 36415; 80053; 82306; 82330; 82570; 83735; 83970; 84100; 84156; 84439; 84443